=== PATIENT | male | born 1935 | race Caucasian/White ===

== ENCOUNTER 2020-09-22 14:05 | Inpatient (IN) ==
--- NOTE | 2020-09-22 15:23 | Emergency Department Note ---
History of Present Illness General Chief complaint: GI Bleed Stated complaint: GI ASSESSMENT Time Seen by Provider: 09/22/20 15:10 Source: patient Mode of arrival: ambulatory Limitations: no limitations History of Present Illness This patient is sent over from his primary care physician office, Dr. Ley after he has been having rectal bleeding and a decreased hemoglobin. He had rectal bleeding since Saturday and stopped yesterday he does have a history of colon cancer and cancerous polyps but he said no recent surgeries or colonoscop y. His hemoglobin was 13.9 in December and it was 10.7 today so his doctor sent here here for admission. He has chronic kidney disease with a creatinine 1.8. The patient says he feels good at present he has no lightheadedness or dizziness. Denies that he is on Coumadin already blood thinners with exception of aspirin. No chest pain or shortness of breath. He says his energy levels been good. He has no exposure to coronavirus no flu flulike symptoms or fever or cough. He has had diarrhea 1-2 times a month. His last bowel movement was yesterday has had no bowel movement today. No abdominal pain Home Medications Home Medications Medication Instructions Recorded Confirmed Type Lantus Solostar U-100 Insulin 35 unit SUBCUT QAM 04/14/19 09/22/20 History atorvastatin 40 mg PO QAM 04/14/19 09/22/20 History cholecalciferol (vitamin D3) 1,000 unit PO QAM 04/14/19 09/22/20 History [Vitamin D3] fluticasone propionate [Flonase 2 spray INTRANASAL DAILY 04/14/19 09/22/20 History Allergy Relief] lisinopril 30 mg PO QAM 04/14/19 09/22/20 History multivitamin 1 cap PO QAM 04/14/19 09/22/20 History acetaminophen 1,000 mg PO TID PRN 09/22/20 09/22/20 History aspirin [Aspirin Low Dose] 81 mg PO QAM 09/22/20 09/22/20 History diclofenac sodium 2 g TOPICAL BID PRN 09/22/20 09/22/20 History lisinopril 10 mg PO QAM 09/22/20 09/22/20 History metformin 500 mg PO QAM 09/22/20 09/22/20 History Allergies Allergy/AdvReac Type Severity Reaction Status Date / Time No Known Allergies Allergy Verified 09/22/20 17:11 Past Med/Surg History Medical History CKD (chronic kidney disease), stage III Colon cancer S/P BOWEL RESECTION June. Diabetes mellitus, type 2 Hyperlipidemia Hypertension Surgical History H/O umbilical hernia repair History of bowel resection JUNE 05 2018 History of cataract extraction with lens replacement B/L History of colonoscopy History of herniorrhaphy UMBILICAL HERNIA Family History (Updated 09/22/20 @ 17:13 by Suzie Portillo PA-C) Other Heart disease Social History Smoking Status: Former smoker Cigarettes Per Day: 0; Smoking End Date: 2015; Second Hand Exposure: No; Hx Alcohol Use: No Hx Substance Use: No Preferred Language: Nicaraguan Communication Ability: Effective Dehydrogenation Operator Required: No Beliefs That Will Affect Care: None Current Living Situation: Spouse Feels Safe at Home: Yes Assistive Devices: Glasses Review of Systems A total of 10 systems reviewed and were otherwise negative Physical Exam Vital Signs Vital Signs - 24 hr 09/22/20 14:09 09/22/20 15:18 Temperature 36.9 C Temperature Source Oral Pulse Rate 103 H Respiratory Rate 18 Respiratory Effort / Characteristics Non-Labored Respiratory Depth Normal Blood Pressure 120/61 Blood Pressure Mean 80 Pulse Oximetry 96 97 Oxygen Delivery Method Room Air Room Air Sepsis Recent Fever Within 48 Hours No Sepsis New/Unexplained Change in Mental Status No Sepsis Action Taken by Nursing No Action Required General: Well developed well nourished older male who appears in no acute distress, breathing comfortably on room air. Normal speech HEENT: Normal cephalic atraumatic. Pupils are equal round and reactive to light. Extraocular movements are intact. Oropharynx is pink with moist mucous membranes. No swelling of the mouth lips or tongue. Neck: Supple with a midline trachea. No meningeal signs or stiffness, no JVD or bruits. No Stridor. Chest: Clear to auscultation bilaterally. No wheezes or rhonchi. No increased work of breathing. Heart: Regular rate and rhythm without murmurs or gallops. Abdomen: Soft nontender, nondistended without rebound guarding or rigidity. Extremities: No cyanosis clubbing or edema. No calf tenderness or assymetry Spine/Back. Non tender to palpation. No CVA tenderness Skin: Good turgor without rashes. Neurologic exam: Cranial nerves two through 12 are intact. Motor and sensation are intact and symmetrical throughout. Medical Decision Making Differential Diagnosis GI bleed, anemia, cardiac disease, electrolyte or metabolic abnormality, fever chills Medical Records Attestation: I reviewed the patient's medical records. Home Medications Current Medication List: was personally reviewed by me Laboratory Data Attestation: I reviewed the patient's lab results. Result diagrams: 09/22/20 15:29 09/22/20 15:29 Lab Results 09/22/20 09/22/20 09/22/20 Range/Units 15:29 15: 15:29 WBC 9.25 (4.8-10.8) K/uL RBC 3.28 L (4.7-6.1) M/uL Hgb 10.7 L (14.0-18.0) g/dL Hct 32.0 L (42-52) % MCV 97.6 (80-100) fL MCH 32.6 (25-34) pg MCHC 33.4 (32-36) g/dL RDW Std Deviation 47.1 H (36.4-46.3) fL RDW Coeff of Scott 13.2 (11.5-14.5) % Plt Count 215 (130-400) K/uL MPV 11.3 H (7.4-10.4) fL Immature Gran % (Auto) 0.2 % Neut % (Auto) 69.0 % Lymph % (Auto) 18.7 % [place] % (Auto) 9.9 % Eos % (Auto) 1.9 % Baso % (Auto) 0.3 % Neut # (Auto) 6.37 (1.4-6.5) K/uL Lymph # (Auto) 1.73 (1.2-3.4) K/uL [place] # (Auto) 0.92 H (0.11-0.59) K/uL Eos # (Auto) 0.18 (0-0.5) K/uL Baso # (Auto) 0.03 (0-0.2) K/uL Immature Gran # (Auto) 0.02 (0.00-0.02) K/uL PT 11.4 (9.0-12.0) Seconds INR 1.1 (0.9-1.1) APTT 22.9 (21.0-31.0) Seconds PTT Ratio 0.8 Sodium (136-145) mmol/L Potassium (3.5-5.1) mmol/L Chloride (98-107) mmol/L Carbon Dioxide (21-32) mmol/L Anion Gap (3-11) BUN (7-18) mg/dl Creatinine (0.6-1.4) mg/dl Est Cr Clr Drug Dosing ml/min Est GFR ( Amer) Est GFR (Non-Af Amer) BUN/Creatinine Ratio (10-20) Glucose (70-99) mg/dl Calcium (8.5-10.1) mg/dl Total Bilirubin (0.2-1) mg/dl AST (15-37) U/L ALT (12-78) U/L Alkaline Phosphatase (45-117) U/L Total Protein (6.4-8.2) gm/dl Albumin (3.4-5.0) gm/dl Globulin (2.5-4.0) gm/dl Albumin/Globulin Ratio (0.9-2) Blood Type O Positive Antibody Screen NEGATIVE 09/22/20 Range/Units 15:29 WBC (4.8-10.8) K/uL RBC (4.7-6.1) M/uL Hgb (14.0-18.0) g/dL Hct (42-52) % MCV (80-100) fL MCH (25-34) pg MCHC (32-36) g/dL RDW Std Deviation (36.4-46.3) fL RDW Coeff of Scott (11.5-14.5) % Plt Count (130-400) K/uL MPV (7.4-10.4) fL Immature Gran % (Auto) % Neut % (Auto) % Lymph % (Auto) % [place] % (Auto) % Eos % (Auto) % Baso % (Auto) % Neut # (Auto) (1.4-6.5) K/uL Lymph # (Auto) (1.2-3.4) K/uL [place] # (Auto) (0.11-0.59) K/uL Eos # (Auto) (0-0.5) K/uL Baso # (Auto) (0-0.2) K/uL Immature Gran # (Auto) (0.00-0.02) K/uL PT (9.0-12.0) Seconds INR (0.9-1.1) APTT (21.0-31.0) Seconds PTT Ratio Sodium 142 (136-145) mmol/L Potassium 5.5 H (3.5-5.1) mmol/L Chloride 117 H (98-107) mmol/L Carbon Dioxide 21 (21-32) mmol/L Anion Gap 4.0 (3-11) BUN 44 H (7-18) mg/dl Creatinine 1.75 H (0.6-1.4) mg/dl Est Cr Clr Drug Dosing 34.0 ml/min Est GFR ( Amer) 40.5 Est GFR (Non-Af Amer) 35.0 BUN/Creatinine Ratio 25.0 H (10-20) Glucose 85 (70-99) mg/dl Calcium 9.5 (8.5-10.1) mg/dl Total Bilirubin 0.6 (0.2-1) mg/dl AST 14 L (15-37) U/L ALT 24 (12-78) U/L Alkaline Phosphatase 86 (45-117) U/L Total Protein 7.1 (6.4-8.2) gm/dl Albumin 3.9 (3.4-5.0) gm/dl Globulin 3.2 (2.5-4.0) gm/dl Albumin/Globulin Ratio 1.2 (0.9-2) Blood Type Antibody Screen ECG Data Attestation: I personally reviewed and interpreted this ECG as follows: Indication: + weakness Rate (beats per minute): 84 Rhythm: + normal sinus ECG Intervals/blocks: + Incomplete right bundle branch block ECG [place]: + Normal ECG ST segments: + Normal ST segments ECG Findings: no PACs and no PVCs Comparison ECG Date: from (05/29/18) Change: no significant change MDM Narrative This patient comes in as described above. He was placed in room B 10. He has had GI bleed symptoms and was sent over from his doctor's office after his hemoglobin had dropped over 3 g since December. He looks well he is mildly tachycardic in triage but is stable vital signs otherwise. IV access established she was typed and screened and multiple blood testing was obtained. His hemoglobin here is 10.7. He has no white count or fever to suggest infection. He does have some renal insufficiency with a creatinine 1.75 which I think is about baseline. EKG shows no ischemic changes or ectopy. Is incomplete right bundle branch block. He has been typed and screened. [facility] and [facility] evaluation. Impression & Plan Acute GI bleeding, Anemia, Chronic renal insufficiency Discharge Plan Visit Data Chief Complaint: GI Bleed Stated Complaint: GI ASSESSMENT ED Provider: Sean Buckley Discharge Problem: Acute GI bleeding, Anemia, Chronic renal insufficiency Forms Stand Alone Forms: My [facility] Prescriptions Prescriptions: No Action atorvastatin 40 mg Tablet 40 mg PO QAM RF: 0 lisinopril 30 mg Tablet 30 mg PO QAM RF: 0 multivitamin Capsule 1 cap PO QAM RF: 0 fluticasone propionate [Flonase Allergy Relief] 50 mcg/actuation [place],Suspension 2 spray INTRANASAL DAILY RF: 0 cholecalciferol (vitamin D3) [Vitamin D3] 1,000 unit Capsule 1,000 unit PO QAM RF: 0 Lantus Solostar U-100 Insulin 100 unit/mL (3 mL) Insulin Pen 35 unit SUBCUT QAM RF: 0 aspirin [Aspirin Low Dose] 81 mg Tablet,Delayed Release (Dr/Ec) 81 mg PO QAM RF: 0 acetaminophen 500 mg Tablet 1,000 mg PO TID PRN (Reason: Pain) RF: 0 lisinopril 10 mg tablet 10 mg PO QAM RF: 0 metformin 500 mg tablet extended release 24 hr 500 mg PO QAM RF: 0 diclofenac sodium 1 % gel 2 g TOPICAL BID PRN (Reason: Knee Pain) RF: 0
[2020-09-22 15:43] LABS: Basophils # (auto) 0.03 K/uL (0-0.2); Basophils % (auto) 0.3 %; Eosinophils # (auto) 0.18 K/uL (0-0.5); Eosinophils % (auto) 1.9 %; Hemoglobin 10.7 g/dL (14.0-18.0); Immature Granulocytes # (auto) 0.02 K/uL (0.00-0.02); Immature Granulocytes % (auto) 0.2 %; Lymphocytes # (auto) 1.73 K/uL (1.2-3.4); Lymphocytes % (auto) 18.7 %; Mean Corpuscular Hemoglobin 32.6 pg (25-34); Mean Corpuscular Hgb Conc 33.4 g/dL (32-36); Mean Corpuscular Volume 97.6 fL (80-100); Mean Platelet Volume 11.3 fL (7.4-10.4); Monocytes # (auto) 0.92 K/uL (0.11-0.59); Monocytes % (auto) 9.9 %; Neutrophils # (auto) 6.37 K/uL (1.4-6.5); Platelet Count 215 K/uL (130-400); RDW Coefficient of Variation 13.2 % (11.5-14.5); RDW Standard Deviation 47.1 fL (36.4-46.3); Red Blood Count 3.28 M/uL (4.7-6.1); White Blood Count 9.25 K/uL (4.8-10.8)
[2020-09-22 15:59] LABS: INR 1.1 (0.9-1.1); Partial Thromboplastin Ratio 0.8; Partial Thromboplastin Time 22.9 Seconds (21.0-31.0); Prothrombin Time 11.4 Seconds (9.0-12.0)
[2020-09-22 16:05] LABS: Albumin Level 3.9 gm/dl (3.4-5.0); Calcium 9.5 mg/dl (8.5-10.1); Est GFR (African American) 40.5; Potassium 5.5 mmol/L (3.5-5.1)
[2020-09-22 16:08] LABS: Albumin Globulin Ratio 1.2 (0.9-2); Bilirubin,Total 0.6 mg/dl (0.2-1); Globulin 3.2 gm/dl (2.5-4.0); Total Protein 7.1 gm/dl (6.4-8.2)
--- NOTE | 2020-09-22 16:15 | History & Physical Report ---
Date of Service September 22, 2020 Assessment & Plan (1) Acute GI bleeding: This is an 85yo M with PMH of colon cancer s/p resection in 2018, DM II, CKD III, HTN, HLD and other medical problems listed below who presents with bloody bowel movements x 3 days. -Reporting 3 days of dark, black stool in setting of daily aspirin use. Also with history of colon ca s/p hemicolectomy in 2018, due for colonoscopy in November 2020 -Hgb of 10.7 today (down from 13.9 in Dec 2019). No leukocytosis, Hct of 32, BUN of 44, Creatinine of 1.75 -? Upper vs lower bleed due to melanotic color and aspirin use but also with h/o colon cancer -Hold aspirin, clear liquids for now and NPO at midnight , PPI bolus and drip, type and screened, repeat H&H @ 2099 -Routine GI consult. Will discuss with restoration ecologist GI provider in case need for colonoscopy prep (2) Acute kidney injury superimposed on chronic kidney disease: Creatinine elevated at 1.75 (baseline ~1.3-1.4) in setting of GI bleed. Also had lisinopril dose increased from 10 to 40mg daily at beginning of month -Hold lisinopril for now, gentle fluids. Repeat BMP in AM (3) Hyperkalemia: K of 5.5 in setting of increased lisinopril dose. Hold for now and repeat BMP in AM (4) Colon cancer: S/p hemicolectomy in 2017. Due for repeat colonoscopy in Nov 2020 (5) HTN (hypertension): Holding lisinopril. Add additional agents if needed (6) Diabetes mellitus, type II: A1c of 7.3 in December. Repeat a1c in AM -Hold home agents -Basal bolus insulin per protocol while inpatient -BSG AC HS (7) HLD (hyperlipidemia): Continue statin DVT Ppx: SCDs Code status: FULL PCP: Av Dispo: Admitted to [facility]. Plan to return home once medically stable. Patient seen in collaboration with Dr. Peralta. Please see addendum. History of Present Illness Chief Complaint: rectal bleeding Primary Care Provider: Vimal Ley MD This is an 85yo M with PMH of colon cancer s/p resection in 2018, DM II, CKD III, HTN, HLD and other medical problems listed below who presents with bloody bowel movements x 3 days. Had dark, almost black bowel movements from Saturday- Saturday, a normal colored bowel movement yesterday without any blood and no bowel movement today. Also noticed blood on shorts [facility]. Was seen in clinic by Dr. Ley and lab work revealed a 3 g drop in hemoglobin from 13.9 in December 2019 to 10.7 today. Denies any lightheadedness, visual changes, presyncope, chest pain, palpitations or shortness of breath. No nausea, vomiting or abdominal pain. Denies any fever, chills or cough. Does take a baby aspirin daily. Has history of colon cancer with right colon resection in 2018. Last colonoscopy was in April 2019 which showed end-to-side ileo-colonic anastomosis, characterized by healthy appearing mucosa, diverticulosis of the sigmoid colon and one 35 mm polyp in the rectum, removed with mucosal resection, one 15 mm polyp in the rectum, removed with a hot snare and non-bleeding internal hemorrhoids. Due for next colonoscopy in Nov 2020. Allergies Allergy/AdvReac Type Severity Reaction Status Date / Time No Known Allergies Allergy Verified 09/22/20 17:11 Home Medications Home Medications Medication Instructions Recorded Confirmed Type Lantus Solostar U-100 Insulin 35 unit SUBCUT QAM 04/14/19 09/22/20 History atorvastatin 40 mg PO QAM 04/14/19 09/22/20 History cholecalciferol (vitamin D3) 1,000 unit PO QAM 04/14/19 09/22/20 History [Vitamin D3] fluticasone propionate [Flonase 2 spray INTRANASAL DAILY 04/14/19 09/22/20 History Allergy Relief] lisinopril 30 mg PO QAM 04/14/19 09/22/20 History multivitamin 1 cap PO QAM 04/14/19 09/22/20 History acetaminophen 1,000 mg PO TID PRN 09/22/20 09/22/20 History aspirin [Aspirin Low Dose] 81 mg PO QAM 09/22/20 09/22/20 History diclofenac sodium 2 g TOPICAL BID PRN 09/22/20 09/22/20 History lisinopril 10 mg PO QAM 09/22/20 09/22/20 History metformin 500 mg PO QAM 09/22/20 09/22/20 History Past Med/Surg History Medical History CKD (chronic kidney disease), stage III Colon cancer S/P BOWEL RESECTION June. Diabetes mellitus, type 2 Hyperlipidemia Hypertension Surgical History H/O umbilical hernia repair History of bowel resection JUNE 05 2018 History of cataract extraction with lens replacement B/L History of colonoscopy History of herniorrhaphy UMBILICAL HERNIA Family History (Updated 09/22/20 @ 17:13 by Suzie Portillo PA-C) Other Heart disease Social History Smoking Status: Former smoker Cigarettes Per Day: 0; Smoking End Date: 2015; Second Hand Exposure: No; Hx Alcohol Use: No Hx Substance Use: No Preferred Language: Turkish Communication Ability: Effective Brand Specialist Required: No Beliefs That Will Affect Care: None Current Living Situation: Spouse Feels Safe at Home: Yes Assistive Devices: Glasses Review of Systems Review of Systems: At least ten systems reviewed and negative except as noted in the HPI. Physical Exam Physical Exam: General Appearance: WD/WN, vitals as above, NAD, sitting up in bed, pleasant, conversing easily Head: normocephalic, atraumatic Eyes: normal inspection, PERRL, conjunctivae normal, anicteric sclerae ENT: external ear and nose normal, oropharynx normal Neck: normal visual inspection, trachea midline, no thyromegaly Respiratory: normal respiratory effort, lungs clear to auscultation, no wheeze, rales, rhonchi. No accessory muscle use Cardiovascular: tachycardic, regular rhythm, no murmur appreciated, normal per ipheral pulses, no BLE edema. Vessels: no JVD Chest: normal inspection of chest Abdomen/GI: normal bowel sounds, soft, nontender, no hepatosplenomegaly Extremities/Musculoskeletal: no cyanosis or clubbing, extremities motor strength 5/5 Neurologic: PERRL, EOMI, accommodation nl, no face palsy, no dysarthria, CN's II-XI intact bilaterally and moves all extremities Psychiatric: A+Ox3, euthymic affect Skin: no rashes, normal color, warm/dry. Quarter-size cyst on midback, nontender Results & Data Results & Data ([facility]) Vital Signs (Past 12 Hours) Vital Signs Temp Pulse Resp BP Pulse Ox 09/22/20 14:09 36.9 C 103 H 18 120/61 96 Laboratory Results Short CBC 09/22/20 Range/Units 15:29 WBC 9.25 (4.8-10.8) K/uL Hgb 10.7 L (14.0-18.0) g/dL Hct 32.0 L (42-52) % Plt Count 215 (130-400) K/uL BMP 09/22/20 15:29 Sodium 142 Potassium 5.5 H Chloride 117 H Carbon Dioxide 21 BUN 44 H Creatinine 1.75 H Glucose 85 Calcium 9.5 Liver Function 09/22/20 Range/Units 15:29 Total Bilirubin 0.6 (0.2-1) mg/dl AST 14 L (15-37) U/L ALT 24 (12-78) U/L Alkaline Phosphatase 86 (45-117) U/L Albumin 3.9 (3.4-5.0) gm/dl ECG Additional Comments: Normal sinus rhythm Incomplete right bundle branch block Supervising Physician Co-Signing Physician Notes Attending Addendum: care coordinated with MOHSEN Portillo please refer to her notes for full details, I agree with her notes patient seen and examined, records reviewed by myself as well on exam, patient seen sitting up in bed, comfortable, not in distress States he feels fine overall No recurrence of GI bleed while admitted No Abdominal pain, nausea vomiting, fevers or chills no other symptoms VS noted and reviewed oriented x 3, not in distress, speaks in sentences with no effort nor accessory muscle use normal rate, regular rhythm, no murmurs clear breath sounds bilaterally non distended, soft, nontender no bipedal edema, erythema, warmth no neuro deficits WBC 9.2 Hg 10.7 Crea 1.7 ASSESSMENT AND PLAN MELENA, HEMATOCHEZIA UPPER VERSUS LOWER GI BLEED HISTORY OF COLON CANCER, DIVERTICULOSIS, INTERNAL HEMORRHOIDS --Hemoglobin 10 from 13 since December 2019 --Discussed with Dr. Haque Recommend colonoscopy tomorrow, start prep tonight --N.p.o. after midnight, gentle IV fluids --Protonix drip ACUTE KIDNEY INJURY HYPERKALEMIA --IV NSS Repeat BMP in a.m. other diagnoses and plan of care as per MOHSEN Portillo's notes Oseas Peralta MD
[2020-09-22] MEDS ORDERED: PANTOPRAZOLE BOLUS/DRIP 1 EA IV STA (16:58)
[2020-09-22] MEDS ORDERED: PANTOprazole 80 MG in DEXTROSE 5% 100 ML IV ONE (17:15)
[2020-09-22] MEDS ORDERED: PANTOprazole 40 MG in DEXTROSE 5% 100 ML IV SCH (17:30)
[2020-09-22] MEDS ORDERED: DEXTROSE 50% 50 ML SYRINGE IV PRN (18:52)
[2020-09-22] MEDS ORDERED: GLUCAGON FOR INJ 1 MG VIAL SQ PRN (18:52)
[2020-09-22] MEDS ORDERED: CARBOHYDRATES FOR HYPOGLYCEMIA PO PRN (18:52)
[2020-09-22] MEDS ORDERED: ACETAMINOPHEN 325 MG TAB PO PRN (18:52)
[2020-09-22] MEDS ORDERED: ONDANSETRON INJ 2 MG/ML 2 ML VIAL IV PRN (18:52)
[2020-09-22] MEDS ORDERED: ACETAMINOPHEN 500 MG TAB PO PRN (18:52)
[2020-09-22] MEDS ORDERED: GLUCOSE 10 TABS/TUBE PO PRN (18:52)
[2020-09-22] MEDS ORDERED: GLUCOSE 40% GEL 15 GM TUBE PO PRN (18:52)
[2020-09-22] MEDS: SODIUM CHLORIDE 0.9% 1000ML 1,000 ML IV SCH (20:30)
[2020-09-22] MEDS: POLYETHYLENE (MIRALAX) 17 GM PACK PO SCH (20:30)
[2020-09-22] MEDS: INSULIN ASPART 100 UNITS/ML 3 ML PEN SC SCH (20:46)
[2020-09-22 21:39] LABS: Hematocrit (blood only) 32.2 % (42-52); Hemoglobin 10.5 g/dL (14.0-18.0)
[2020-09-22] MEDS: PANTOprazole 40 MG in DEXTROSE 5% 100 ML IV SCH (22:54)
[2020-09-23] MEDS: POLYETHYLENE (MIRALAX) 17 GM PACK PO SCH (00:38)
[2020-09-23] MEDS: PANTOprazole 40 MG in DEXTROSE 5% 100 ML IV SCH ×3 (04:17→19:34)
[2020-09-23 06:47] LABS: Hematocrit (blood only) 32.1 % (42-52); Hemoglobin 10.6 g/dL (14.0-18.0); Mean Corpuscular Hemoglobin 32.6 pg (25-34); Mean Corpuscular Volume 98.8 fL (80-100); Mean Platelet Volume 11.3 fL (7.4-10.4); Platelet Count 206 K/uL (130-400); RDW Coefficient of Variation 13.2 % (11.5-14.5); RDW Standard Deviation 47.8 fL (36.4-46.3); Red Blood Count 3.25 M/uL (4.7-6.1); White Blood Count 7.66 K/uL (4.8-10.8)
[2020-09-23 07:21] LABS: BUN Creatinine Ratio 22.7 (10-20); Creatinine Clr Calc Pharmacy 37.2 ml/min; Est GFR (African American) 49.6; Est GFR (Non-African American) 42.8; Potassium 5.1 mmol/L (3.5-5.1)
[2020-09-23 07:46] LABS: Estimated Average Glucose 148 mg/dl; Hemoglobin A1C 6.8 % (4.5-5.6)
--- NOTE | 2020-09-23 07:59 | Electrocardiogram Report ---
Test Reason : Blood Pressure : / mmHG Vent. Rate : 084 BPM Atrial Rate : 084 BPM P-R Int : 192 ms QRS Dur : 106 ms QT Int : 354 ms P-R-T Axes : 000 039 030 degrees QTc Int : 418 ms Normal sinus rhythm Incomplete right bundle branch block Borderline ECG When compared with ECG of 29-MAY-2018 06:07, No significant change was found Confirmed by Garret Petersen ([id number]) on 09/23/2020 7:58:48 AM Referred By: Vimal Ley Confirmed By:Garret Petersen
[2020-09-23] MEDS: MULTIVITAMIN TAB PO SCH (08:18)
[2020-09-23] MEDS: FLUTICASONE PROPIONATE NA SPR 16 GM BTL NAE SCH (08:18)
[2020-09-23] MEDS: ATORVASTATIN 40 MG TAB PO SCH (08:18)
--- NOTE | 2020-09-23 09:12 | Gastrointestinal Consultation ---
Date of Consultation September 23, 2020 Assessment & Plan (1) Acute GI bleeding: Mr. Irvin experienced melena with some bright red rectal bleeding, occurring from last Sat to Saturday, w/o any bleeding since that time. His Hb dropped 3 pts since the most recent prior in March 2020 and he experienced slight worsening of his renal function. He carries a hx of colon cancer and diverticulosis. Differentials considered include upper GI bleeding from ulcer disease or AVMs, lower GI bleeding from diverticulosis, colon cancer or ischemic colitis. Plan: 1. EGD and colonoscopy today by Dr. Stratton. 2. Because no current GI bleeding, no need for a PPI drip. 3. Please continue to keep pt NPO. 4. Further recommendations to follow endoscopy. Supervising Physician Co-Signing Physician Notes I saw and evaluated the patient, we are planning for upper endoscopy and colonoscopy today due to a question of melena and hematochezia. Physical examination No obvious distress, mild pallor of the skin No abdominal tenderness noted Impression: Patient presents with a history of hematochezia and melena with a mild reduction in his hemoglobin and hematocrit. Upper endoscopy and colonoscopy planned for today for further evaluation. We have discussed the risks to include bleeding, infection, perforation, pain and need for follow-up studies. History of Present Illness Reason for Consultation: Rectal Bleeding Requesting Physician: Dr. Peralta Attending Physician: Carmen Orozco MD History of Present Illness Mr. Gopi Irvin if an 85 yr old male pt of Dr. Ley with a hx of colon cancer (resection 2018) DM II, CKD III, HTN, HLD. His most recent colonoscopy was in April 2019 with one 35mm polyp, [id number] polyp (Path with tubular adenoma) and diverticulosis. A one yr f/u colonoscopy was recommended but held due to COVID. He experienced rectal bleeding, mostly black, with some bright red on the toilet paper beginning on Saturday, persisting through Saturday. Since then, he has had soft, brown BMs. He denies any abd pain, nausea, vomiting, CP, SOB, dizziness, weakness or other issues. He saw his PCP yesterday. Labs showed mild worsening of renal function and a drop in Hb from 13 in March 2020 to 10. He is on ASA 81mg/day, no other antiplatelet or anticoagulant meds. He was directed to the [facility] ED. On arrival at [facility], Hb 10.6, Hct 32, Platelets 206, BUN 34, Cr 1.48. He was pr epped for colonoscopy, and has been NPO since midnight. Most recent BM this morning was liquid, green.He is hemodynamically stable, awake, alert, oriented and comfortable. He agrees to undergo endoscopy and does not have any questions. Allergies Allergy/AdvReac Type Severity Reaction Status Date / Time No Known Allergies Allergy Verified 09/22/20 17:11 Home Medications Home Medications Medication Instructions Recorded Confirmed Type Lantus Solostar U-100 Insulin 35 unit SUBCUT QAM 04/14/19 09/22/20 History atorvastatin 40 mg PO QAM 04/14/19 09/22/20 History cholecalciferol (vitamin D3) 1,000 unit PO QAM 04/14/19 09/22/20 History [Vitamin D3] fluticasone propionate [Flonase 2 spray INTRANASAL DAILY 04/14/19 09/22/20 History Allergy Relief] lisinopril 30 mg PO QAM 04/14/19 09/22/20 History multivitamin 1 cap PO QAM 04/14/19 09/22/20 History acetaminophen 1,000 mg PO TID PRN 09/22/20 09/22/20 History aspirin [Aspirin Low Dose] 81 mg PO QAM 09/22/20 09/22/20 History diclofenac sodium 2 g TOPICAL BID PRN 09/22/20 09/22/20 History lisinopril 10 mg PO QAM 09/22/20 09/22/20 History metformin 500 mg PO QAM 09/22/20 09/22/20 History Patient History Medical History CKD (chronic kidney disease), stage III Colon cancer S/P BOWEL RESECTION June. Diabetes mellitus, type 2 Hyperlipidemia Hypertension Surgical History H/O umbilical hernia repair History of bowel resection JUNE 05 2018 History of cataract extraction with lens replacement B/L History of colonoscopy History of herniorrhaphy UMBILICAL HERNIA Family History Other Heart disease Social History Smoking Status: Former smoker Cigarettes Per Day: 0; Smoking End Date: 2015; Second Hand Exposure: No; Hx Alcohol Use: No Hx Substance Use: No Preferred Language: Frisian Communication Ability: Effective Track Inspector Required: No Beliefs That Will Affect Care: None Current Living Situation: Spouse Feels Safe at Home: Yes Assistive Devices: None Review of Systems Review of Systems: ROS: Gen: Denies weakness, fevers, weight loss Eyes: No eye redness, or pain, no recent vision changes Resp: No SOB, no cough Cardio: No palpitations/irregular beats, no chest pain GI: Per HPI, otherwise (-). : Denies pain on urination Skin: No jaundice, itching or new rashes Physical Exam Constitutional: WD/WN, vitals as above Eyes: PERRL, conjunctivae normal, anicteric sclerae ENMT: external ear and nose normal, oropharynx normal Neck: trachea midline, no thyromegaly Respiratory: normal respiratory effort, lungs clear to auscultation Cardiovascular: RRR, no murmur, no edema Gastrointestinal (Abdomen): normal bowel sounds, soft, nontender, no hepatosplenomegaly Musculoskeletal: no cyanosis or clubbing, extremities motor strength 5/5 Skin: no rashes, warm and dry Neurologic: PERRL, EOMI, accommodation nl, no face palsy, no dysarthria Psychiatric: A+Ox3, euthymic affect Lymphatic: no cervical or axillary lymphadenopathy Results & Data ([facility]) Vital Signs (Past 12 Hours) Vital Signs Temp Pulse Pulse Resp BP Pulse Ox 09/23/20 07:45 36.6 C 84 20 143/83 H 99 09/23/20 04:00 37.0 C 88 18 161/74 H 95 09/23/20 01:27 105 H 09/22/20 23:00 36.7 C 85 17 131/71 96 Laboratory Results WBC 7.6, Hb 10/6, Hct 32, Platelets 73, Na 140, k 5.1, BUN 34, Cr 1.48, glucose 82, INR 1.1.
[2020-09-23] MEDS: SODIUM CHLORIDE 0.9% 1000ML 1,000 ML IV SCH (09:15)
[2020-09-23] MEDS: INSULIN ASPART 100 UNITS/ML 3 ML PEN SC SCH ×4 (09:31→20:15)
[2020-09-23] MEDS: INSULIN GLARGINE SOLOSTAR 100 UNITS/ML 3 ML PEN SC SCH (09:31)
--- NOTE | 2020-09-23 09:57 | Anesthesiology Consultation ---
Date of Service September 23, 2020 Assessment & Plan Chart Review Chart Review: Acceptable Risk for Surgery Consults Requested none ASA ASA3 Proposed Anesthesia Anesthesia Type: MAC Risk / Benefits Reviewed With: PT / POA / Parent / Guardian, Accepts Plan and Informed Consent Obtained Additional Comments: covid pending 09/23/20 labs/chart reviewed History Surgery Operation Date: 09/23/20 16:00 Proposed Procedures p Colonoscopy EGD Dr Viral Stratton, DO Height/Weight Height: 5 ft 9 in Weight: 83.9 kg Allergies Allergy/AdvReac Type Severity Reaction Status Date / Time No Known Allergies Allergy Verified 09/22/20 17:11 Medications Home Medications Medication Instructions Recorded Confirmed Last Taken Lantus Solostar U-100 Insulin 35 unit SUBCUT QAM 04/14/19 09/22/20 09/22/20 atorvastatin 40 mg PO QAM 04/14/19 09/22/20 09/22/20 cholecalciferol (vitamin D3) 1,000 unit PO QAM 04/14/19 09/22/20 09/22/20 [Vitamin D3] fluticasone propionate [Flonase 2 spray INTRANASAL DAILY 04/14/19 09/22/20 09/22/20 Allergy Relief] lisinopril 30 mg PO QAM 04/14/19 09/22/20 09/22/20 multivitamin 1 cap PO QAM 04/14/19 09/22/20 09/22/20 acetaminophen 1,000 mg PO TID PRN 09/22/20 09/22/20 Unknown aspirin [Aspirin Low Dose] 81 mg PO QAM 09/22/20 09/22/20 09/22/20 diclofenac sodium 2 g TOPICAL BID PRN 09/22/20 09/22/20 Unknown lisinopril 10 mg PO QAM 09/22/20 09/22/20 09/22/20 metformin 500 mg PO QAM 09/22/20 09/22/20 09/22/20 Active Medications Generic Name Dose Route Start Last Admin Trade Name Freq PRN Reason Stop Dose Admin Atorvastatin Calcium 40 mg 09/23/20 09:00 09/23/20 08:18 Atorvastatin 40 Mg Tab PO 10/23/20 08:59 40 mg QAM DALILA Administration Fluticasone Propionate 2 sprays 09/23/20 09:00 10/23/20 08:18 Fluticasone Propionate Na Spr 16 Gm Btl REGAN 10/23/20 08:59 2 sprays DAILY DALILA Administration Pantoprazole Sodium 40 mg/ 100 mls @ 20 mls/hr 09/22/20 23:15 09/23/20 09:15 Dextrose IV 10/22/20 23:14 8 mg/hr Q5H DALILA 20 mls/hr Administration 8 MG/HR Sodium Chloride 1,000 mls @ 75 mls/hr 09/22/20 19:30 09/23/20 09:15 Nss 1000ml IV 10/22/20 19:29 75 mls/hr .[id number] DALILA Administration Insulin Aspart 0 units 09/22/20 21:00 09/23/20 09:31 Insulin Aspart 100 Units/Ml 3 Ml Pen SC 10/22/20 20:59 Not Given ACHS DALILA Insulin Glargine 0 - 10 units 09/23/20 09:00 09/23/20 09:31 Insulin Glargine Solostar 100 Units/Ml 3 Ml Pen SC 10/23/20 08:59 Not Given DAILY DALILA Protocol Multivitamins 1 tab 09/23/20 09:00 09/23/20 08:18 Multivitamin Tab PO 10/23/20 08:59 1 tab QAM DALILA Administration NPO Date Last Intake of Fluids: 09/23/20 Time Last Intake of Fluids: 04:30 Date Last Intake of Solids: 09/22/20 Past Medical History Medical History CKD (chronic kidney disease), stage III Colon cancer S/P BOWEL RESECTION June. Diabetes mellitus, type 2 Hyperlipidemia Hypertension Exercise / Class Metabolic Activity II 4-5 Yardwork/Stairs/Walk up hill Past Family History Family History Other Heart disease Past Surgical History Surgical History H/O umbilical hernia repair History of bowel resection JUNE 05 2018 History of cataract extraction with lens replacement B/L History of colonoscopy History of herniorrhaphy UMBILICAL HERNIA Past Anesthesia History No Hx of Anesthesia Complications and No Family Hx of Anesthesia Complications History of PONV No Hx of PONV and No Hx of Motion Sickness Social History Smoking Status: Former smoker Smoking cigarettes per day: 0 Smoking End Date: 2015 Hx Alcohol Use: No Hx Substance Use: No substance use type: does not use Physical Exam Vital Signs Last Vital Signs Temp 36.9 C 09/23/20 11:24 Pulse 82 09/23/20 11:24 Resp 18 09/23/20 11:24 BP 130/78 09/23/20 11:24 Pulse Ox 99 09/23/20 11:24 ENMT Mouth: no TMJ abnormality Thyromental Distance: > or= 3.5 Finger Breadths Mallampati Class: II Neck normal visual inspection and trachea midline; neck extension not limited Respiratory normal respiratory effort Auscultation: lungs clear to auscultation bilaterally Cardiovascular Rate/Rhythm: regular rate and regular rhythm Heart Sounds: no murmur Musculoskeletal Spine: normal cervical ROM Extremities: full ROM of extremities Neurologic moves all extremities Psychiatric Orientation: alert and oriented x 3 Testing Laboratory Results 09/23/20 06:28 09/23/20 06:28 PT 11.4 Seconds (9.0-12.0) 09/22/20 15:29 INR 1.1 (0.9-1.1) 09/22/20 15:29 APTT 22.9 Seconds (21.0-31.0) 09/22/20 15:29 Hemoglobin A1c 6.8 % (4.5-5.6) H 09/23/20 06:28 Blood Type O Positive 09/22/20 15:29 Antibody Screen NEGATIVE 09/22/20 15:29 09/23/20 09/23/20 11:45 07:53 POC Glucose 83 77
--- NOTE | 2020-09-23 14:12 | Electrocardiogram Report ---
Test Reason : Blood Pressure : / mmHG Vent. Rate : 084 BPM Atrial Rate : 084 BPM P-R Int : 204 ms QRS Dur : 110 ms QT Int : 362 ms P-R-T Axes : 268 052 044 degrees QTc Int : 427 ms Unusual P axis, possible ectopic atrial rhythm Incomplete right bundle branch block Abnormal ECG When compared with ECG of 22-SEP-2020 15:49, No significant change (prior tracing appears to have been ectopic atrial rhythm as well) Confirmed by Garret Petersen ([id number]) on 09/23/2020 2:12:20 PM Referred By: Vimal Ley Confirmed By:Garret Petersen
--- NOTE | 2020-09-23 14:39 | Communication Note ---
Date of Service: September 23, 2020 Patient underwent upper endoscopy and colonoscopy today due to a question of melena and hematochezia. Findings Gastritis, biopsied Duodenal polyp, biopsied Internal hemorrhoids Anastomotic ulceration, healing Impression: Patient presented with hematochezia and melena perhaps this is related to the ulceration noticed at his ileocolonic anastomosis. Recommendations Avoid use of nonsteroidals, may use baby aspirin if needed Await pathology results Sitter use of an iron supplement 1 time daily for 6 to 8 weeks Please call with any questions or concerns
--- NOTE | 2020-09-23 14:45 | GI REPORT ---
Patient Name: Gopi Irvin Procedure Date: 09/23/2020 1:29 PM Date of : 1935 Admit Type: Inpatient Age: 85 Gender: Male Attending MD: Roosevelt Stratton DO Procedure: Colonoscopy Providers: Roosevelt Stratton DO Referring MD: CR PINEDO, Lisa Juárez MD, Vimal Ley Indications: Hematochezia Medicines: Monitored Anesthesia Care Complications: No immediate complications. Estimated blood loss: Minimal. Estimated Blood Loss: Estimated blood loss was minimal. Procedure: Pre-Anesthesia Assessment: - Prior to the procedure, a History and Physical was performed, and patient medications, allergies and sensitivities were reviewed. The patient's tolerance of previous anesthesia was reviewed. - The risks and benefits of the procedure and the sedation options and risks were discussed with the patient. All questions were answered and informed consent was obtained. - Patient identification and proposed procedure were verified prior to the procedure by the physician, the nurse and the airline stewardess. The procedure was verified in the procedure room. - Pre-procedure physical examination revealed no contraindications to sedation. - ASA Grade Assessment: III - A patient with severe systemic disease. - After reviewing the risks and benefits, the patient was deemed in satisfactory condition to undergo the procedure. - The anesthesia plan was to use monitored anesthesia care (MAC). - Immediately prior to administration of medications, the patient was re-assessed for adequacy to receive sedatives. - The heart rate, respiratory rate, oxygen saturations, blood pressure, adequacy of pulmonary ventilation, and response to care were monitored throughout the procedure. - The physical status of the patient was re-assessed after the procedure. After I obtained informed consent, the scope was passed under direct vision. Throughout the procedure, the patient's blood pressure, pulse, and oxygen saturations were monitored continuously. The Colonoscope was introduced through the anus and advanced to the ileocolonic anastomosis. The colonoscopy was performed without difficulty. The patient tolerated the procedure well. The quality of the bowel preparation was good. Findings: The digital rectal exam findings include non-thrombosed external hemorrhoids. Pertinent negatives include normal sphincter tone. The robby-terminal ileum appeared normal. There was evidence of a prior end-to-side ileo-colonic anastomosis in the transverse colon. This was patent and was characterized by ulceration and an intact staple line. The anastomosis was traversed. Biopsies were taken with a cold forceps for histology. The pathology specimen was placed into Bottle C. Estimated blood loss was minimal. Internal hemorrhoids were found during retroflexion. The hemorrhoids were moderate. The exam was otherwise without abnormality. Impression: - Non-thrombosed external hemorrhoids found on digital rectal exam. - The examined portion of the ileum was normal. - Patent end-to-side ileo-colonic anastomosis, characterized by ulceration and an intact staple line. Biopsied. - Internal hemorrhoids. - The examination was otherwise normal. Recommendation: - [facility] for [facility] care. - Await pathology results. - Repeat colonoscopy in 1 year for surveillance given patient's prior history. Roosevelt Stratton D.O. Roosevelt Stratton, 09/23/2020 2:44:38 PM This report has been signed electronically. Note Initiated On: 09/23/2020 1:29 PM Number of Addenda: 0 I attest to the content of the Intraoperative Record and orders documented therein, exceptions below {[id number]}
--- NOTE | 2020-09-23 14:51 | GI REPORT ---
Patient Name: Gopi Irvin Procedure Date: 09/23/2020 1:30 PM Date of : 1935 Admit Type: Inpatient Age: 85 Gender: Male Attending MD: Roosevelt Stratton DO Procedure: Upper GI endoscopy Providers: Roosevelt Stratton DO Referring MD: Vimal SAM Indications: Melena Medicines: Monitored Anesthesia Care Complications: No immediate complications. Estimated blood loss: Minimal. Estimated Blood Loss: Estimated blood loss was minimal. Procedure: Pre-Anesthesia Assessment: - Prior to the procedure, a History and Physical was performed, and patient medications, allergies and sensitivities were reviewed. The patient's tolerance of previous anesthesia was reviewed. - The risks and benefits of the procedure and the sedation options and risks were discussed with the patient. All questions were answered and informed consent was obtained. - Patient identification and proposed procedure were verified prior to the procedure by the physician, the nurse and the feller buncher operator. The procedure was verified in the procedure room. - Pre-procedure physical examination revealed no contraindications to sedation. - ASA Grade Assessment: III - A patient with severe systemic disease. - After reviewing the risks and benefits, the patient was deemed in satisfactory condition to undergo the procedure. - The anesthesia plan was to use monitored anesthesia care (MAC). - Immediately prior to administration of medications, the patient was re-assessed for adequacy to receive sedatives. - The heart rate, respiratory rate, oxygen saturations, blood pressure, adequacy of pulmonary ventilation, and response to care were monitored throughout the procedure. - The physical status of the patient was re-assessed after the procedure. After obtaining informed consent, the endoscope was passed under direct vision. Throughout the procedure, the patient's blood pressure, pulse, and oxygen saturations were monitored continuously. The Endoscope was introduced through the mouth, and advanced to the third part of duodenum. The upper GI endoscopy was accomplished without difficulty. The patient tolerated the procedure well. Findings: The examined esophagus was normal. The Z-line was regular and was found 39 cm from the incisors. Diffuse mild inflammation characterized by congestion (edema), erythema and granularity was found in the entire examined stomach. Biopsies were taken with a cold forceps for histology. The pathology specimen was placed into Bottle B. Estimated blood loss was minimal. A single 12 mm semi-sessile polyp with no bleeding was found in the duodenal bulb. The surrounding mucosa was somewhat edematous this could represent an healing ulceration due to the position I was unable to see the base of the lesion well, biopsies were taken with a cold forceps for histology. The pathology specimen was placed into Bottle A. Estimated blood loss was minimal. A large non-bleeding diverticulum was found in the area of the papilla. The second portion of the duodenum and third portion of the duodenum were normal. Impression: - Normal esophagus. - Gastritis. Biopsied. - A single duodenal polyp, this may represent a healing ulceration. Biopsied. - Normal second portion of the duodenum and third portion of the duodenum. Recommendation: - Await pathology results. - Use Prilosec (omeprazole) 40 mg PO daily for 12 weeks. - Repeat upper endoscopy pending pathology results in 12 weeks - Perform a colonoscopy today. Roosevelt Stratton D.O. Roosevelt Stratton, 09/23/2020 2:51:34 PM This report has been signed electronically. Note Initiated On: 09/23/2020 1:30 PM Number of Addenda: 0 I attest to the content of the Intraoperative Record and orders documented therein, exceptions below {[id number]}
--- NOTE | 2020-09-23 15:08 | Anesthesiology Progress Note ---
Date of Service September 23, 2020 Anesthesia Post Procedure Vital Signs Vital Signs: Temp Pulse Pulse Resp BP BP BP 09/23/20 14:57 77 12 133/77 09/23/20 14:42 72 12 121/66 09/23/20 13:02 37.3 C 91 H 20 153/70 H 09/23/20 11:24 36.9 C 82 18 130/78 09/23/20 08:00 79 09/23/20 07:45 36.6 C 84 20 143/83 H 09/23/20 04:00 37.0 C 88 18 161/74 H 09/23/20 01:27 105 H 09/22/20 23:00 36.7 C 85 17 131/71 09/22/20 20:20 79 09/22/20 18:52 36.5 C 18 143/74 H 09/22/20 17:00 79 19 09/22/20 16:30 83 25 H 09/22/20 16:00 84 17 09/22/20 15:45 85 17 09/22/20 15:41 85 21 131/67 09/22/20 15:18 Pulse Ox 09/23/20 14:57 97 09/23/20 14:42 97 09/23/20 13:02 99 09/23/20 11:24 99 09/23/20 08:00 09/23/20 07:45 99 09/23/20 04:00 95 09/23/20 01:27 09/22/20 23:00 96 09/22/20 20:20 09/22/20 18:52 100 09/22/20 17:00 98 09/22/20 16:30 09/22/20 16:00 97 09/22/20 15:45 97 09/22/20 15:41 97 09/22/20 15:18 97 Transfer of Care Handoff Completed per policy Notes Mental Status: alert / awake / arousable Patient Amnestic to Procedure: Yes Nausea / Vomiting: adequately controlled Pain: adequately controlled Airway Patency, RR, SpO2: stable & adequate BP & HR: stable & adequate Hydration State: stable & adequate Anesthetic Complications: no major complications apparent and Pt Satisfied with anesthetic care
--- NOTE | 2020-09-23 18:44 | Hospitalist Progress Note ---
Date of Service September 23, 2020 Assessment & Plan (1) Acute GI bleeding: This is an 85yo M with PMH of colon cancer s/p resection in 2018, DM II, CKD III, HTN, HLD and other medical problems listed below who presents with bloody bowel movements x 3 days. History of colon ca s/p hemicolectomy in 2017, due for colonoscopy in November 2020 Hgb on admission 10.7 Gastro on board S/P EGD showed EGD showed normal esophagus. gastritis. Single duodenal polyps that might represent a healing ulceration. Biopsy collected. Colonoscopy showed nonthrombosed external hemorrhoid. Internal hemorrhoid. patent end-to-side ileocolonic anastomosis, characterized by ulceration and an intact staple line. Biopsy collected Case discussed with GI that recommended to continue PPI 40 mg daily for 12 weeks. Will need to repeat EGD in 12 weeks. Will hold aspirin for 3-5 days, then resume Diet advanced as tolerated Stable from Gastro standpoint (2) Acute kidney injury superimposed on chronic kidney disease: Creatinine elevated at 1.75 on admission (baseline ~1.3-1.4) Mostly due to GI bleed Continue to hold lisinopril Creatinine 1.4 today stable (3) Hyperkalemia: K on admission 5.5 K today 5.1 Continue to hold Lisinopril Continue monitor BMP (4) Colon cancer: S/p hemicolectomy in 2018. Due for repeat colonoscopy in Nov 2020 Colonoscopy done today showed nonthrombosed external hemorrhoid. Internal hemorrhoid. patent end-to-side ileocolonic anastomosis, characterized by ulceration and an intact staple line. Biopsy collected (5) HTN (hypertension): BP has been fluctuated Continue to hold Lisinopril Continue monitor BP (6) Diabetes mellitus, type II: Most recent Hba1c 6.8 Continue to hold metformin Continue Lantus and Novolog sliding scale Continue monitor BS (7) HLD (hyperlipidemia): Continue statin DVT Ppx: SCDs Code status: FULL PCP: Av Dispo: Plan to discharge home tomorrow Admission and Anticipated Discharge Date Admission Date: September 22, 2020 Subjective Pt was seen and examined Lying in bed with no distress Pt said that he feels good He said that no blood was noted today in his tools Denies any chest pain, palpitation, dizziness and SOB Physical Exam Physical Exam: General- No acute distress Head- atraumatic Eyes- PERRL, EOMI, ENT- oropharynx clear Neck- supple, no JVD Lungs- clear to auscultation Heart- regular rhythm; no murmur Abdomen- normal bowel sounds, soft, nontender Extremities- no calf tenderness Neuro- alert, oriented x 3; PERRL, EOMI; no facial palsy; no dysarthria Skin- warm & dry Results & Data Results & Data ([facility]) Vital Signs (Past 12 Hours) Vital Signs Temp Pulse Pulse Resp BP BP Pulse Ox 09/23/20 16:52 36.6 C 80 18 146/90 H 99 09/23/20 15:12 75 18 136/57 L 100 09/23/20 14:57 77 12 133/77 97 09/23/20 14:42 72 12 121/66 97 09/23/20 13:02 37.3 C 91 H 20 153/70 H 99 09/23/20 11:24 36.9 C 82 18 130/78 99 09/23/20 08:00 79 09/23/20 07:45 36.6 C 84 20 143/83 H 99
[2020-09-24 08:16] LABS: Hematocrit (blood only) 33.9 % (42-52); Hemoglobin 11.1 g/dL (14.0-18.0); Mean Corpuscular Hemoglobin 32.5 pg (25-34); Mean Corpuscular Hgb Conc 32.7 g/dL (32-36); Mean Corpuscular Volume 99.1 fL (80-100); Mean Platelet Volume 11.5 fL (7.4-10.4); Platelet Count 201 K/uL (130-400); RDW Coefficient of Variation 13.1 % (11.5-14.5); RDW Standard Deviation 47.4 fL (36.4-46.3); Red Blood Count 3.42 M/uL (4.7-6.1); White Blood Count 7.49 K/uL (4.8-10.8)
[2020-09-24] MEDS: INSULIN ASPART 100 UNITS/ML 3 ML PEN SC SCH (08:34)
[2020-09-24] MEDS: INSULIN GLARGINE SOLOSTAR 100 UNITS/ML 3 ML PEN SC SCH (08:35)
[2020-09-24] MEDS: ATORVASTATIN 40 MG TAB PO SCH (08:36)
[2020-09-24] MEDS: MULTIVITAMIN TAB PO SCH (08:36)
[2020-09-24] MEDS: FLUTICASONE PROPIONATE NA SPR 16 GM BTL NAE SCH (08:36)
[2020-09-24 08:43] LABS: BUN Creatinine Ratio 18.8 (10-20); Calcium 8.9 mg/dl (8.5-10.1); Creatinine Clr Calc Pharmacy 34.2 ml/min; Est GFR (African American) 44.8; Est GFR (Non-African American) 38.7
[2020-09-24] MEDS ORDERED: CHOLECALCIFEROL 1,000 UNITS 25 MCG TAB PO SCH (09:00)
[2020-09-24] MEDS ORDERED: PANTOprazole 40 MG TAB PO SCH (09:00)
--- NOTE | 2020-09-24 11:47 | Hospitalist Progress Note ---
Date of Service September 24, 2020 Assessment & Plan (1) Acute GI bleeding: This is an 85yo M with PMH of colon cancer s/p resection in 2018, DM II, CKD III, HTN, HLD and other medical problems listed below who presents with bloody bowel movements x 3 days. History of colon ca s/p hemicolectomy in 2017, due for colonoscopy in November 2020 Hgb on admission 10.7, slightly increased to 11.1 today Gastro on board S/P EGD showed EGD showed normal esophagus. gastritis. Single duodenal polyps that might represent a healing ulceration. Biopsy collected. Colonoscopy showed nonthrombosed external hemorrhoid. Internal hemorrhoid. patent end-to-side ileocolonic anastomosis, characterized by ulceration and an intact staple line. Biopsy collected Case discussed with GI that recommended to continue PPI 40 mg daily for 12 weeks. Will need to repeat EGD in 12 weeks. Continue hold aspirin for 3-5 days, then resume Diet advanced as tolerated Stable from Gastro standpoint to discharge home (2) Acute kidney injury superimposed on chronic kidney disease: Creatinine elevated at 1.75 on admission (baseline ~1.3-1.4) Mostly due to GI bleed Continue to hold lisinopril Creatinine 1.6 today Pt would like to go home today. Encourage patient to increase fluid intake and hold Lisinopril for now Will check BMP next week (3) Hyperkalemia: K on admission 5.5 K today 5.0 Continue to hold Lisinopril Check BMP next week (4) Colon cancer: S/p hemicolectomy in 2018. Due for repeat colonoscopy in Nov 2020 Colonoscopy done today showed nonthrombosed external hemorrhoid. Internal hemorrhoid. patent end-to-side ileocolonic anastomosis, characterized by ulceration and an intact staple line. Biopsy collected (5) HTN (hypertension): BP stable Continue to hold Lisinopril Continue monitor BP (6) Diabetes mellitus, type II: Most recent Hba1c 6.8 Continue to hold metformin on discharge due to bump in the creatinine Continue Lantus and Novolog sliding scale Continue monitor BS (7) HLD (hyperlipidemia): Continue statin DVT Ppx: SCDs Code status: FULL PCP: Av Dispo: Plan to discharge home today Admission and Anticipated Discharge Date Admission Date: September 22, 2020 Subjective Pt was seen and examined Sitting in bed comfortable and dress nicely to go home Pt said that he feels fine He said that he does not have any symptoms He is very anxious to go home now to go watch the football game Denies any chest pain, palpitation, dizziness and SOB Physical Exam Physical Exam: General- No acute distress Head- atraumatic Eyes- PERRL, EOMI, ENT- oropharynx clear Neck- supple, no JVD Lungs- clear to auscultation Heart- regular rhythm; no murmur Abdomen- normal bowel sounds, soft, nontender Extremities- no calf tenderness Neuro- alert, oriented x 3; PERRL, EOMI; no facial palsy; no dysarthria Skin- warm & dry Results & Data Results & Data ([facility]) Vital Signs (Past 12 Hours) Vital Signs Temp Pulse Resp BP Pulse Ox 09/24/20 08:06 37.0 C 73 18 125/74 96 09/24/20 04:00 36.6 C 70 18 113/62 96
--- NOTE | 2020-09-24 12:37 | Anesthesiology Progress Note ---
Date of Service September 24, 2020 Anesthesia Post Procedure Vital Signs Vital Signs: Temp Pulse Resp BP BP Pulse Ox 09/24/20 12:28 37.0 C 73 18 136/57 L 125/74 96 09/24/20 08:06 37.0 C 73 18 125/74 96 09/24/20 04:00 36.6 C 70 18 113/62 96 09/23/20 23:00 36.3 C L 75 18 134/68 94 09/23/20 19:00 36.6 C 85 18 123/74 96 09/23/20 16:52 36.6 C 80 18 146/90 H 99 09/23/20 15:12 75 18 136/57 L 100 09/23/20 14:57 77 12 133/77 97 09/23/20 14:42 72 12 121/66 97 09/23/20 13:02 37.3 C 91 H 20 153/70 H 99 Transfer of Care Handoff Completed per policy Notes Mental Status: alert / awake / arousable and participated in evaluation Patient Amnestic to Procedure: Yes Nausea / Vomiting: adequately controlled Pain: adequately controlled Airway Patency, RR, SpO2: stable & adequate BP & HR: stable & adequate Hydration State: stable & adequate Anesthetic Complications: no major complications apparent and Pt Satisfied with anesthetic care
--- NOTE | 2020-09-26 09:25 | Discharge Summary ---
Date of Service September 24, 2020 Admission HPI Per Admitting Provider This is an 85yo M with PMH of colon cancer s/p resection in 2018, DM II, CKD III, HTN, HLD and other medical problems listed below who presents with bloody bowel movements x 3 days. Had dark, almost black bowel movements from Saturday- Saturday, a normal colored bowel movement yesterday without any blood and no bowel movement today. Also noticed blood on shorts after riding stationary bike on [facility]. Was seen in clinic by Dr. Ley and lab work revealed a 3 g drop in hemoglobin from 13.9 in December 2019 to 10.7 today. Denies any lightheadedness, visual changes, presyncope, chest pain, palpitations or shortness of breath. No nausea, vomiting or abdominal pain. Denies any fever, chills or cough. Does take a baby aspirin daily. Has history of colon cancer with right colon resection in 2018. Last colonoscopy was in April 2019 which showed end-to-side ileo-colonic anastomosis, characterized by healthy appearing mucosa, diverticulosis of the sigmoid colon and one 35 mm polyp in the rectum, removed with mucosal resection, one 15 mm polyp in the rectum, removed with a hot snare and non-bleeding internal hemorrhoids. Due for next colonoscopy in Nov 2020. Admission Exam Per Admitting Provider General Appearance: WD/WN, vitals as above, NAD, sitting up in bed, pleasant, conversing easily Head: normocephalic, atraumatic Eyes: normal inspection, PERRL, conjunctivae normal, anicteric sclerae ENT: external ear and nose normal, oropharynx normal Neck: normal visual inspection, trachea midline, no thyromegaly Respiratory: normal respiratory effort, lungs clear to auscultation, no wheeze, rales, rhonchi. No accessory muscle use Cardiovascular: tachycardic, regular rhythm, no murmur appreciated, normal peripheral pulses, no BLE edema. Vessels: no JVD Chest: normal inspection of chest Abdomen/GI: normal bowel sounds, soft, nontender, no hepatosplenomegaly Extremities/Musculoskeletal: no cyanosis or clubbing, extremities motor strength 5/5 Neurologic: PERRL, EOMI, accommodation nl, no face palsy, no dysarthria, CN's II-XI intact bilaterally and moves all extremities Psychiatric: A+Ox3, euthymic affect Skin: no rashes, normal color, warm/dry. Quarter-size cyst on midback, nontender Principal Diagnosis GI bleeding Acute kidney injury superimposed on chronic kidney disease: Hyperkalemia: Colon cancer: HTN (hypertension): Diabetes mellitus, type II: Discharge Exam General- No acute distress Head- atraumatic Eyes- PERRL, EOMI, ENT- oropharynx clear Neck- supple, no JVD Lungs- clear to auscultation Heart- regular rhythm; no murmur Abdomen- normal bowel sounds, soft, nontender Extremities- no calf tenderness Neuro- alert, oriented x 3; PERRL, EOMI; no facial palsy; no dysarthria Skin- warm & dry Discharge Data Allergies Allergy/AdvReac Type Severity Reaction Status Date / Time No Known Allergies Allergy Verified 09/22/20 17:11 Consultations 09/22/20 15:54 ED Decision to Admit Stat 09/22/20 18:52 Consult Case Management - Discharge Planning Routine Consult Gastroenterology Routine Procedures Performed Operation Date: 09/23/20 16:00 Actual Procedures p EGD Biopsy Cytology - Roosevelt Stratton DO s Colonoscopy Biopsy Cytology - Roosevelt Stratton DO Hospital Course (1) Acute GI bleeding: This is an 85yo M with PMH of colon cancer s/p resection in 2018, DM II, CKD III, HTN, HLD and other medical problems listed below who presents with bloody bowel movements x 3 days. History of colon ca s/p hemicolectomy in 2017, due for colonoscopy in November 2020 Hgb on admission 10.7, slightly increased to 11.1 today Gastro on board S/P EGD showed EGD showed normal esophagus. gastritis. Single duodenal polyps that might represent a healing ulceration. Biopsy collected. Colonoscopy showed nonthrombosed external hemorrhoid. Internal hemorrhoid. patent end-to-side ileocolonic anastomosis, characterized by ulceration and an intact staple line. Biopsy collected Case discussed with GI that recommended to continue PPI 40 mg daily for 12 weeks. Will need to repeat EGD in 12 weeks. Continue hold aspirin for 3-5 days, then resume Diet advanced as tolerated Stable from Gastro standpoint to discharge home (2) Acute kidney injury superimposed on chronic kidney disease: Creatinine elevated at 1.75 on admission (baseline ~1.3-1.4) Mostly due to GI bleed Continue to hold lisinopril Creatinine 1.6 today Pt would like to go home today. Encourage patient to increase fluid intake and hold Lisinopril for now Will check BMP next week (3) Hyperkalemia: K on admission 5.5 K today 5.0 Continue to hold Lisinopril Check BMP next week (4) Colon cancer: S/p hemicolectomy in 2018. Due for repeat colonoscopy in Nov 2020 Colonoscopy done today showed nonthrombosed external hemorrhoid. Internal hemorrhoid. patent end-to-side ileocolonic anastomosis, characterized by ulceration and an intact staple line. Biopsy collected (5) HTN (hypertension): BP stable Continue to hold Lisinopril Continue monitor BP (6) Diabetes mellitus, type II: Most recent Hba1c 6.8 Continue to hold metformin on discharge due to bump in the creatinine Continue Lantus and Novolog sliding scale Continue monitor BS (7) HLD (hyperlipidemia): Continue statin DVT Ppx: SCDs Code status: FULL PCP: Av Dispo: Plan to discharge home today Total Time Total Time Spent Total Time Spent (In Minutes): 35 minutes Total Time Includes: Examination of the Patient, Discharge Planning, Medication Reconciliation, Communication With Other Providers and Other Discharge Plan Discharge Items Patient Disposition: Home - Self-Care Reason For Visit: GI BLEED Discharge Diagnosis: GI bleeding Acute kidney injury superimposed on chronic kidney disease: Hyperkalemia: Colon cancer: HTN (hypertension): Diabetes mellitus, type II: Activity: Resume your previous activity Non-emergency contact: Primary Care Provider Call non-emergency contact if: you have any medication questions Follow-up/Referrals: Vimal Ley MD [Primary Care Provider] - 09/27/20 11:00 am Diet: Heart Healthy Addtl Attending Provider Instructions: Follow up with your primary care provider Dr. Ley on 09/27 @ 11AM Follow up with gastroenterology to arrange for repeat upper endoscopy in 12 weeks Pathology reports from the scope on 09/23 are pending (your physician will review the result with you) Check BMP next week to monitor your kidney function and electrolytes Continue to hold lisinopril and metformin for now (your physician will tell you when to resume them) Ok to resume aspirin on Saturday, but avoid any other NSAIDs such as motrin, aleve, advil, naproxen, Ibuprofen, ..... Fall precaution Continue pantoprazole daily for 12 weeks Continue monitor your blood sugar Follow a healthy diabetic diet and limited concentrated sweet intake Continue monitor your blood pressure and bring your blood pressure log at your next appointment with your physician Pending Studies at Discharge: Yes Studies:: Pathology result for Endoscopy and Colonoscopy Stand-Alone Forms: My [facility], Smoking Cessation Medications and DC Order Prescriptions: New pantoprazole 40 mg Tablet,Delayed Release (Dr/Ec) 40 mg PO QAM Qty: 30 RF: 0 Continued atorvastatin 40 mg Tablet 40 mg PO QAM RF: 0 lisinopril 30 mg Tablet 30 mg PO QAM RF: 0 multivitamin Capsule 1 cap PO QAM RF: 0 fluticasone propionate [Flonase Allergy Relief] 50 mcg/actuation [place],Suspension 2 spray INTRANASAL DAILY RF: 0 cholecalciferol (vitamin D3) [Vitamin D3] 1,000 unit Capsule 1,000 unit PO QAM RF: 0 Lantus Solostar U-100 Insulin 100 unit/mL (3 mL) Insulin Pen 35 unit SUBCUT QAM RF: 0 aspirin [Aspirin Low Dose] 81 mg Tablet,Delayed Release (Dr/Ec) 81 mg PO QAM RF: 0 acetaminophen 500 mg Tablet 1,000 mg PO TID PRN (Reason: Pain) RF: 0 lisinopril 10 mg tablet 10 mg PO QAM RF: 0 metformin 500 mg tablet extended release 24 hr 500 mg PO QAM RF: 0 diclofenac sodium 1 % gel 2 g TOPICAL BID PRN (Reason: Knee Pain) RF: 0 Discharge Orders: Discharge Order (Routine); Ordered 09/24/20 Ordered By: Carmen Perez/Other Patient Handouts: Managing Type 2 Diabetes Admission Data Admit Date/Time: 09/22/20 16:57 Attending Provider: Carmen Orozco Admit Provider: Oseas Peralta Primary Care Provider: Vimal Ley Other Providers: Oseas Peralta ; Roosevelt Stratton Other Interventions: Discharge Summary Assessment (RN) Last Done: 09/24/20 12:28
== END 2020-09-24 13:13 | disposition home or self-care (01) | DRG 378 ==
LOC: ED 14:05 → SUATTDRO 16:57 → 2N 16:57

== ENCOUNTER 2021-04-25 14:36 | Inpatient (IN) ==
--- NOTE | 2021-04-25 15:09 | Anesthesiology Consultation ---
Date of Service April 25, 2021 Assessment & Plan (1) Encounter for pre-operative examination: Chart Review Chart Review: Acceptable Risk for Surgery, Patient NOT seen in Pre Admission Testing and entry level account representative initiated Consults Requested none History Surgery Operation Date: 04/26/21 16:30 Proposed Procedures p Esophagogastroduodenoscopy Dr. Vega Ferrari MD Height/Weight Height: 5 ft 9 in Weight: 79.9 kg Allergies Allergy/AdvReac Type Severity Reaction Status Date / Time No Known Allergies Allergy Verified 09/22/20 17:11 Medications Home Medications Medication Instructions Recorded Confirmed Last Taken Lantus Solostar U-100 Insulin 35 unit SUBCUT QAM 04/14/19 09/22/20 09/22/20 atorvastatin 40 mg PO QAM 04/14/19 09/22/20 09/22/20 cholecalciferol (vitamin D3) 1,000 unit PO QAM 04/14/19 09/22/20 09/22/20 [Vitamin D3] fluticasone propionate [Flonase 2 spray INTRANASAL DAILY 04/14/19 09/22/20 09/22/20 Allergy Relief] lisinopril 30 mg PO QAM 04/14/19 09/22/20 09/22/20 multivitamin 1 cap PO QAM 04/14/19 09/22/20 09/22/20 acetaminophen 1,000 mg PO TID PRN 09/22/20 09/22/20 Unknown aspirin [Aspirin Low Dose] 81 mg PO QAM 09/22/20 09/22/20 09/22/20 diclofenac sodium 2 g TOPICAL BID PRN 09/22/20 09/22/20 Unknown lisinopril 10 mg PO QAM 09/22/20 09/22/20 09/22/20 metformin 500 mg PO QAM 09/22/20 09/22/20 09/22/20 pantoprazole 40 mg PO QAM #30 tab 09/24/20 Unknown Past Medical History Medical History (Updated 04/25/21 @ 15:15 by Gurwinder Rm MD) Acute GI bleeding Anemia CKD (chronic kidney disease), stage III Colon cancer Colon cancer S/P BOWEL RESECTION June. Diabetes mellitus, type 2 Diabetes mellitus, type II HLD (hyperlipidemia) HTN (hypertension) Hyperlipidemia Hypertension Past Family History Family History Other Heart disease Past Surgical History Surgical History (Updated 04/25/21 @ 15:07 by Gurwinder Rm MD) H/O umbilical hernia repair History of bowel resection JUNE 05 2018 History of cataract extraction with lens replacement B/L History of colonoscopy History of herniorrhaphy UMBILICAL HERNIA S/P right hemicolectomy Social History Smoking Status: Former smoker Smoking cigarettes per day: 0 Hx Alcohol Use: No Hx Substance Use: No substance use type: does not use Physical Exam Vital Signs Last Vital Signs Temp 36.8 C 04/25/21 14:43 Pulse 103 H 04/25/21 14:43 Resp 18 04/25/21 14:43 BP 134/54 L 04/25/21 14:43 Pulse Ox 98 04/25/21 14:43 Testing Electrocardiogram Date: 09/22/20 Findings: + pertinent finding (Test Reason : Blood Pressure : / mmHG Vent. Rate : 084 BPM Atrial Rate : 084 BPM P-R Int : 204 ms QRS Dur : 110 ms QT Int : 362 ms P-R-T Axes : 268 052 044 degrees QTc Int : 427 ms Unusual P axis, possible ectopic atrial rhythm Incomplete right bundle branch blo)
[2021-04-25] MEDS ORDERED: PANTOprazole 40 MG in SYRINGE 0 ML IV ONE (15:18)
[2021-04-25] MEDS ORDERED: SODIUM CHLORIDE 0.9% 500 ML IV STA (15:18)
--- NOTE | 2021-04-25 15:36 | Emergency Department Note ---
Impression & Plan Acute lower GI bleeding, Anemia, Weakness ED Provider Note NAME: TEAGAN SALAS AGE: 85 SEX: M : 1935 ARRIVES VIA: Walk-In INFORMANT: Patient, ED PROVIDER(S): Rustam Mckenna DO CHIEF COMPLAINT: GI bleeding HPI: The patient is an 85-year-old male who presented to the emergency department for an evaluation of rectal bleeding. The patient has noticed black stool along with gross blood per rectum over the course the last month. The patient states he went to see his GI doctor and was referred to the emergency department. The plan is to have the patient resuscitated further than likely colonoscopy tomorrow. He does have a history of colon cancer. He denies having any fever. He had no abdominal pain. He does complain of some weakness as well as shortness of breath with exertion. He notices no chest pain. He has had no changes in his outpatient medication regimen. The patient symptoms are moderate to severe. ROS: See above HPI for pertinent positives & negatives. A total of 10 systems reviewed and were otherwise negative. PAST MEDICAL HISTORY: See Below PAST SURGICAL HISTORY: See Below FAMILY HISTORY: See Below SOCIAL HISTORY: See Below HOME MEDICATIONS: See Below ALLERGIES: See Below VITALS: See Below PHYSICAL EXAMINATION: GENERAL: The patient is awake and alert. He is somewhat anxious appearing. EYES: The conjunctivae are pale. The pupils are round and reactive. EARS, NOSE, MOUTH AND THROAT: The nose is without any evidence of any deformity. Mucous membranes are moist. Tongue is midline. NECK: The neck is nontender and supple. RESPIRATORY: Normal respiratory effort is noted there is no evidence of wheezing rhonchi or rales CARDIOVASCULAR: Regular rate and rhythm noted there no murmurs rubs or gallops normal S1 normal S2. GASTROINTESTINAL: The abdomen is soft and nondistended. There is no tenderness guarding rigidity. Rectal exam revealed gross blood which was strongly heme positive. MUSCULOSKELETAL/EXTREMITIES: There is no evidence of gross deformity full range of motion is noted in the hips and shoulders. SKIN: Skin was cool and pale. Trace pedal edema was noted bilaterally. NEUROLOGIC: Patient is awake alert and oriented x 3. MEDICAL DECISION MAKING: The patient is an 85-year-old male who presented to the emergency department for an evaluation of GI bleeding. The patient started experiencing lower GI bleeding symptoms over the course the last 48 hours. Initially he stated he had black stool but on physical exam was was found to have signs of maroon stool. He has a history of colon cancer. This could be related to his previous colon cancer or possibly a diverticular bleed. The patient was treated with a small fluid bolus but then also had blood ordered. I consented the patient for blood. I discussed the patient's laboratory and radiographic studies with him. I also [facility] They have agreed to evaluate the patient in the emergency department for further management and disposition. Triage Nursing notes reviewed. Prior medical records reviewed Vital Signs: reviewed and remarkable for elevated blood pressure. Differential diagnosis: Diverticulosis, AVM, coagulopathy, colitis, inflammatory bowel disease, malignancy, Vale-Sandoval tear, esophagitis, peptic ulcer disease, variceal bleed, gastritis, epistaxis, fissure, hemorrhoids, as well as other pathologies. ER treatment provided: See below Diagnostics interpreted by me: ECG: EKG was obtained in the emergency department. My interpretation is normal sinus rhythm at 93 bpm. There was no ectopy. There was no acute ST segment abnormalities noted. This was compared to a tracing from September [id number]. No significant changes were noted. Cardiac Monitoring: An order was placed for continuous cardiac monitoring. The monitor shows a rate of 89 bpm with sinus rhythm. Laboratory studies: As stated above and show below. Imaging studies: See below Consultation(s): 1610: I discussed this case with Kaleigh who is [facility] ED COURSE: Procedures: none PDMP:reviewed and no issues Critical Care: I have personally spent greater than 45 minutes of critical care time in the direct management of this patient. This includes bedside care, interpretation of diagnostic studies, and testing, discussion with consultants, patient, and family members, and other required patient management activities. This 45 minutes is in excess of all separately billable procedures. Past Med/Surg History Medical History (Updated 04/25/21 @ 17:28 by Rustam Mckenna DO) Acute GI bleeding Anemia CKD (chronic kidney disease), stage III Colon cancer Colon cancer S/P BOWEL RESECTION June. Diabetes mellitus, type 2 Diabetes mellitus, type II HLD (hyperlipidemia) HTN (hypertension) Hyperlipidemia Hypertension Surgical History H/O umbilical hernia repair History of bowel resection JUNE 05 2018 History of cataract extraction with lens replacement B/L History of colonoscopy History of herniorrhaphy UMBILICAL HERNIA S/P right hemicolectomy Family History Other Heart disease Social History Smoking Status: Former smoker Tobacco Type: Cigarettes Cigarettes Per Day: 0; Second Hand Exposure: No; Hx Alcohol Use: No Hx Substance Use: No Preferred Language: Pashto Communication Ability: Effective 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 Beliefs That Will Affect Care: None Current Living Situation: Spouse Feels Safe at Home: Yes Assistive Devices: None Allergies Allergies Allergy/AdvReac Type Severity Reaction Status Date / Time No Known Allergies Allergy Verified 04/25/21 15:59 Home Meds Home Medications Medication Instructions Recorded Confirmed Lantus Solostar U-100 Insulin 32 unit SUBCUT QAM 04/14/19 04/25/21 atorvastatin 40 mg PO QAM 04/14/19 04/25/21 cholecalciferol (vitamin D3) 1,000 unit PO QAM 04/14/19 04/25/21 [Vitamin D3] fluticasone propionate [Flonase 2 spray INTRANASAL DAILY 04/14/19 04/25/21 Allergy Relief] aspirin [Aspirin Low Dose] 81 mg PO QAM 09/22/20 04/25/21 diclofenac sodium 2 g TOPICAL BID PRN 09/22/20 04/25/21 metformin 500 mg PO QAM 09/22/20 04/25/21 acetaminophen [Tylenol] 325 mg PO Q6 PRN 04/25/21 04/25/21 lisinopril 20 mg PO DAILY 04/25/21 04/25/21 multivitamin with minerals 1 tab PO DAILY 04/25/21 04/25/21 [Multiple Vitamin-Minerals] pantoprazole 40 mg PO BID 04/25/21 04/25/21 Results & Data (ED) Vital Signs Vital Signs - 24 hr 04/25/21 14:43 04/25/21 15:35 04/25/21 15:43 Temperature 36.8 C Temperature Source Temporal Artery Scan Pulse Rate 103 H 91 H 90 Pulse Rate [Right Apical] Pulse Rate from SpO2 Sensor 91 H 90 Respiratory Rate 18 16 15 Respiratory Effort / Characteristics Non-Labored Spontaneous Respiratory Depth Normal Respiratory Pattern Regular Blood Pressure 134/54 L 137/68 Blood Pressure [Left Arm] Blood Pressure Mean 80 91 Blood Pressure Mean [Left Arm] Blood Pressure Position Sitting Pulse Oximetry 98 100 99 Oxygen Delivery Method Room Air Sepsis Recent Fever Within 48 Hours No Sepsis New/Unexplained Change in Mental Status N/A Sepsis Action Taken by Nursing No Action Required 04/25/21 16:00 04/25/21 16:01 04/25/21 16:15 Temperature Temperature Source Pulse Rate 90 89 Pulse Rate [Right Apical] 92 H Pulse Rate from SpO2 Sensor 90 89 Respiratory Rate 17 20 20 Respiratory Effort / Characteristics Respiratory Depth Respiratory Pattern Blood Pressure 152/63 H Blood Pressure [Left Arm] 152/63 H Blood Pressure Mean 92 Blood Pressure Mean [Left Arm] 92 Blood Pressure Position Pulse Oximetry 100 100 100 Oxygen Delivery Method Room Air Sepsis Recent Fever Within 48 Hours Sepsis New/Unexplained Change in Mental Status Sepsis Action Taken by Nursing 04/25/21 16:30 04/25/21 16:31 04/25/21 17:05 Temperature 36.7 C Temperature Source Oral Pulse Rate 89 89 92 H Pulse Rate [Right Apical] Pulse Rate from SpO2 Sensor 89 89 Respiratory Rate 13 23 19 Respiratory Effort / Characteristics Respiratory Depth Respiratory Pattern Blood Pressure 152/70 H 181/93 H Blood Pressure [Left Arm] Blood Pressure Mean 97 122 Blood Pressure Mean [Left Arm] Blood Pressure Position Pulse Oximetry 100 100 100 Oxygen Delivery Method Sepsis Recent Fever Within 48 Hours Sepsis New/Unexplained Change in Mental Status Sepsis Action Taken by Nursing 04/25/21 17:15 Temperature 36.9 C Temperature Source Oral Pulse Rate 88 Pulse Rate [Right Apical] Pulse Rate from SpO2 Sensor Respiratory Rate 20 Respiratory Effort / Characteristics Respiratory Depth Respiratory Pattern Blood Pressure 148/63 H Blood Pressure [Left Arm] Blood Pressure Mean 91 Blood Pressure Mean [Left Arm] Blood Pressure Position Sitting Pulse Oximetry 100 Oxygen Delivery Method Sepsis Recent Fever Within 48 Hours Sepsis New/Unexplained Change in Mental Status Sepsis Action Taken by Assisted Medications Current Medication List: was personally reviewed by me Laboratory Data Attestation: I reviewed the patient's lab results. Result diagrams: 04/25/21 15:24 04/25/21 15:24 Lab Results 04/25/21 04/25/21 04/25/21 Range/Units 15:24 15:24 15:24 WBC 10.93 H (4.8-10.8) K/uL RBC 2.42 L (4.7-6.1) M/uL Hgb 7.7 L (14.0-18.0) g/dL Hct 23.5 L (42-52) % MCV 97.1 (80-100) fL MCH 31.8 (25-34) pg MCHC 32.8 (32-36) g/dL RDW Std Deviation 55.6 H (36.4-46.3) fL RDW Coeff of Scott 15.8 H (11.5-14.5) % Plt Count 219 (130-400) K/uL MPV 10.8 H (7.4-10.4) fL Immature Gran % (Auto) 0.3 % Neut % (Auto) 80.5 % Lymph % (Auto) 11.3 % [place] % (Auto) 6.8 % Eos % (Auto) 0.8 % Baso % (Auto) 0.3 % Neut # (Auto) 8.81 H (1.4-6.5) K/uL Lymph # (Auto) 1.23 (1.2-3.4) K/uL [place] # (Auto) 0.74 H (0.11-0.59) K/uL Eos # (Auto) 0.09 (0-0.5) K/uL Baso # (Auto) 0.03 (0-0.2) K/uL Immature Gran # (Auto) 0.03 H (0.00-0.02) K/uL Ovalocytes 1+ PT 10.9 (9.0-12.0) Seconds INR 1.1 (0.9-1.1) APTT 21.1 (21.0-31.0) Seconds PTT Ratio 0.8 Sodium (136-145) mmol/L Potassium (3.5-5.1) mmol/L Chloride (98-107) mmol/L Carbon Dioxide (21-32) mmol/L Anion Gap (3-11) BUN (7-18) mg/dl Creatinine (0.6-1.4) mg/dl Est Cr Clr Drug Dosing ml/min Est GFR ( Amer) ml/min Est GFR (Non-Af Amer) ml/min BUN/Creatinine Ratio (10-20) Glucose (70-99) mg/dl Calcium (8.5-10.1) mg/dl Total Bilirubin (0.2-1) mg/dl AST (15-37) U/L ALT (12-78) U/L Alkaline Phosphatase (45-117) U/L Troponin I (0-0.045) ng/ml Total Protein (6.4-8.2) gm/dl Albumin (3.4-5.0) gm/dl Globulin (2.5-4.0) gm/dl Albumin/Globulin Ratio (0.9-2) Lipase (73-393) U/L COVID-19 Eval Order SARS-CoV-2 (PCR) (Negative) Blood Type O Positive Antibody Screen NEGATIVE Crossmatch See Detail 04/25/21 04/25/21 04/25/21 Range/Units 15:24 15:49 15:49 WBC (4.8-10.8) K/uL RBC (4.7-6.1) M/uL Hgb (14.0-18.0) g/dL Hct (42-52) % MCV (80-100) fL MCH (25-34) pg MCHC (32-36) g/dL RDW Std Deviation (36.4-46.3) fL RDW Coeff of Scott (11.5-14.5) % Plt Count (130-400) K/uL MPV (7.4-10.4) fL Immature Gran % (Auto) % Neut % (Auto) % Lymph % (Auto) % [place] % (Auto) % Eos % (Auto) % Baso % (Auto) % Neut # (Auto) (1.4-6.5) K/uL Lymph # (Auto) (1.2-3.4) K/uL [place] # (Auto) (0.11-0.59) K/uL Eos # (Auto) (0-0.5) K/uL Baso # (Auto) (0-0.2) K/uL Immature Gran # (Auto) (0.00-0.02) K/uL Ovalocytes PT (9.0-12.0) Seconds INR (0.9-1.1) APTT (21.0-31.0) Seconds PTT Ratio Sodium 144 (136-145) mmol/L Potassium 5.2 H (3.5-5.1) mmol/L Chloride 119 H (98-107) mmol/L Carbon Dioxide 20 L (21-32) mmol/L Anion Gap 4.0 (3-11) BUN 46 H (7-18) mg/dl Creatinine 1.72 H (0.6-1.4) mg/dl Est Cr Clr Drug Dosing 32.0 ml/min Est GFR ( Amer) 41.4 ml/min Est GFR (Non-Af Amer) 35.7 ml/min BUN/Creatinine Ratio 26.5 H (10-20) Glucose 89 (70-99) mg/dl Calcium 9.2 (8.5-10.1) mg/dl Total Bilirubin 0.5 (0.2-1) mg/dl AST 9 L (15-37) U/L ALT 15 (12-78) U/L Alkaline Phosphatase 68 (45-117) U/L Troponin I < 0.015 (0-0.045) ng/ml Total Protein 6.4 (6.4-8.2) gm/dl Albumin 3.7 (3.4-5.0) gm/dl Globulin 2.7 (2.5-4.0) gm/dl Albumin/Globulin Ratio 1.4 (0.9-2) Lipase 84 (73-393) U/L COVID-19 Eval Order Covid19 at [facility] SARS-CoV-2 (PCR) NEGATIVE (Negative) Blood Type Antibody Screen Crossmatch Administered Medications Discontinued Medications Sodium Chloride (Nss) 500 mls @ 999 mls/hr IV .Q31M STA Stop: 04/25/21 15:48 Last Infusion: 04/25/21 16:24 Dose: 0 mls/hr Documented by: [id number] Admin: 04/25/21 15:42 Dose: 999 mls/hr Documented by: [id number] Pantoprazole Sodium 40 mg/ (Syringe) 10 mls @ 5 mls/min IV NOW ONE Stop: 04/25/21 15:19 Last Admin: 04/25/21 15:42 Dose: 5 mls/min Documented by: [id number] Imaging Data Radiologist's Impression: Chest X-Ray 04/25/21 15:18 XR chest 1V portable CLINICAL HISTORY: Gastrointestinal hemorrhage COMPARISON STUDY: May 28, 2018 FINDINGS: The cardiac and mediastinal contours are normal. There is no evidence of focal pulmonary consolidation. There is no evidence of failure. 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 IMPRESSION: No active disease in the chest. ACT 112: Negative or not required by law. Electronically signed by: Devin Bhatt M.D. 04/25/2021 4:18 PM Discharge Plan Visit Data Chief Complaint: GI Assessment Stated Complaint: GI ASSESSMENT ED Provider: Rustam Mckenna Discharge Problem: Acute lower GI bleeding, Anemia, Weakness Patient Disposition: Admitted As Inpatient Condition: Good Forms Stand Alone Forms: [facility] [employer] Prescriptions Prescriptions: No Action atorvastatin 40 mg Tablet 40 mg PO QAM RF: 0 fluticasone propionate [Flonase Allergy Relief] 50 mcg/actuation [place],Suspension 2 spray INTRANASAL DAILY RF: 0 cholecalciferol (vitamin D3) [Vitamin D3] 1,000 unit Capsule 1,000 unit PO QAM RF: 0 Lantus Solostar U-100 Insulin 100 unit/mL (3 mL) Insulin Pen 32 unit SUBCUT QAM RF: 0 aspirin [Aspirin Low Dose] 81 mg Tablet,Delayed Release (Dr/Ec) 81 mg PO QAM RF: 0 metformin 500 mg tablet extended release 24 hr 500 mg PO QAM RF: 0 diclofenac sodium 1 % gel 2 g TOPICAL BID PRN (Reason: Knee Pain) RF: 0 lisinopril 20 mg tablet 20 mg PO DAILY RF: 0 pantoprazole 40 mg tablet,delayed release (DR/EC) 40 mg PO BID RF: 0 acetaminophen [Tylenol] 325 mg Tablet 325 mg PO Q6 PRN (Reason: Fever Or Pain) RF: 0 multivitamin with minerals [Multiple Vitamin-Minerals] Tablet 1 tab PO DAILY RF: 0 Referrals Referrals: Vimal Ley MD [Primary Care Provider] - Discharge Problem: Anemia Qualifiers: Anemia type: unspecified type Qualified Code(s): D64.9 - Anemia, unspecified
[2021-04-25 15:41] LABS: Basophils # (auto) 0.03 K/uL (0-0.2); Basophils % (auto) 0.3 %; Eosinophils # (auto) 0.09 K/uL (0-0.5); Eosinophils % (auto) 0.8 %; Hematocrit (blood only) 23.5 % (42-52); Hemoglobin 7.7 g/dL (14.0-18.0); Immature Granulocytes # (auto) 0.03 K/uL (0.00-0.02); Immature Granulocytes % (auto) 0.3 %; Lymphocytes # (auto) 1.23 K/uL (1.2-3.4); Lymphocytes % (auto) 11.3 %; Mean Corpuscular Hemoglobin 31.8 pg (25-34); Mean Corpuscular Hgb Conc 32.8 g/dL (32-36); Mean Corpuscular Volume 97.1 fL (80-100); Mean Platelet Volume 10.8 fL (7.4-10.4); Monocytes # (auto) 0.74 K/uL (0.11-0.59); Monocytes % (auto) 6.8 %; Neutrophils # (auto) 8.81 K/uL (1.4-6.5); Neutrophils % (auto) 80.5 %; Platelet Count 219 K/uL (130-400); RDW Coefficient of Variation 15.8 % (11.5-14.5); RDW Standard Deviation 55.6 fL (36.4-46.3); Red Blood Count 2.42 M/uL (4.7-6.1); White Blood Count 10.93 K/uL (4.8-10.8)
[2021-04-25 15:50] LABS: INR 1.1 (0.9-1.1); Partial Thromboplastin Ratio 0.8; Partial Thromboplastin Time 21.1 Seconds (21.0-31.0); Prothrombin Time 10.9 Seconds (9.0-12.0)
[2021-04-25 16:00] LABS: Alanine Aminotransferase 15 U/L (12-78); Albumin Level 3.7 gm/dl (3.4-5.0); Aspartate Aminotransferase 9 U/L (15-37); BUN Creatinine Ratio 26.5 (10-20); Blood Urea Nitrogen 46 mg/dl (7-18); Calcium 9.2 mg/dl (8.5-10.1); Carbon Dioxide 20 mmol/L (21-32); Chloride 119 mmol/L (98-107); Est GFR (African American) 41.4 ml/min; Est GFR (Non-African American) 35.7 ml/min; Glucose 89 mg/dl (70-99); Lipase 84 U/L (73-393); Potassium 5.2 mmol/L (3.5-5.1); Sodium 144 mmol/L (136-145)
[2021-04-25 16:04] LABS: Albumin Globulin Ratio 1.4 (0.9-2); Alkaline Phosphatase 68 U/L (45-117); Bilirubin,Total 0.5 mg/dl (0.2-1); Globulin 2.7 gm/dl (2.5-4.0); Total Protein 6.4 gm/dl (6.4-8.2); Troponin I < 0.015 ng/ml (0-0.045)
--- NOTE | 2021-04-25 16:07 | Communication Note ---
Date of Service: April 25, 2021 This is an 85 y/o male with history of colon CA s/p resection, who has been having reported melena/hematochezia x several days, was due to have EGD today and HGB as an outpt found to be 10-> 8.3. Pt was referred to the ER from outpt endoscopy who contacted us to discuss inpt endoscopy. Was referred to the ER for further care. On arrival HGB 7.7 and BUN 46. Given presenation, concern is for possible UGIB; also consider SB vs colonic source. Recommend: - IV PPI - Trend H&H, transfuse PRN - Monitor and document GI output - Pt can have clear liquids now - Make NPO after midnight - IVF - Plan for EGD tomorrow to evaluate for potential source of UGIB - Full consult tomorrow
[2021-04-25] MEDS ORDERED: SODIUM CHLORIDE 0.9% 250 ML IV PRN (16:09)
--- NOTE | 2021-04-25 16:12 | History & Physical Report ---
Date of Service April 25, 2021 Assessment & Plan (1) Acute GI bleeding: -Admit to PCU -Hgb 7.7 on admission, previously was 11 on in Nov. Type and cross, blood consented. Transfuse 1 U - tachycardic, but otherwise hemodynamically stable. -Consult GI, Dr. Ferrari medical consultant, discussed with Erika Mancilla-plan for EGD tomorrow, allow clears for now and make n.p.o. after midnight, possible will need colonoscopy pending findings of EGD -IV famotidine BID while inpatient, hold p.o. pantoprazole -Hold baby aspirin (2) Colon cancer: -History of such in 2017, last EGD and colonoscopy were in September 2020 -EGD was noted to have mild diffuse inflammation in the entire stomach. Nonbleeding diverticulum found in the area of the papilla, second and third portion of duodenum were normal. -Colonoscopy reviewed showing nonthrombosed external hemorrhoid, prior end-to-side ileocolonic anastomosis in the transverse colon. Moderate internal hemorrhoids. (3) S/P right hemicolectomy: -hx of such in 2018 as above (4) Anemia: -Hgb 7.7, likely secondary to acute blood loss -Follow H&H (next check at 2100, then with am labs) (5) Hyperlipidemia: - Cont atorvastatin (6) HTN (hypertension): -Lisinopril 20 mg daily - missed this mornings dose for anticipated EGD, will give dose now and then resume with morning meds. (7) Diabetes mellitus, type II: -Hold metformin -Last A1c was 6.8, recheck with a.m. labs -ISS with Accu-Cheks ACHS -Lantus reduced in half to 16 U tomorrow am since NPO after midnight. Resume 32 QAM once ordered a diet. (8) CKD (chronic kidney disease), stage III: -History of such -BUN 46, CR 1.72, follow with a.m. labs -Continue lisinopril as above DVT PPx: - teds, scds, no anticoagulation secondary to GI bleed CODE: DNR/DNI Dispo: From home, likely to remain in the hospital x 1-2 days. 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 Patient was scheduled to have EGD by Dr. Carrion this morning as an outpatient at [facility], however upon discovery of continued dark tarry bowel movements and blood it was thought that the procedure should be canceled and patient was referred to the ER for further work-up. Patient reports that he had 9 days of diarrhea followed by 3 days of dark tarry bowel movements and maroon-colored stools. He denies abdominal pain, nausea, vomiting, lightheadedness or dizziness. Denies any changes in appetite or diet. He did feel that he was more pale this morning. Patient lives at home with his . Denies any recent falls but does use a cane for balance. Allergies Allergy/AdvReac Type Severity Reaction Status Date / Time No Known Allergies Allergy Verified 04/25/21 15:59 Home Medications Medication Instructions Recorded Confirmed Type Lantus Solostar U-100 Insulin 32 unit SUBCUT QAM 04/14/19 04/25/21 History atorvastatin 40 mg PO QAM 04/14/19 04/25/21 History cholecalciferol (vitamin D3) 1,000 unit PO QAM 04/14/19 04/25/21 History [Vitamin D3] fluticasone propionate [Flonase 2 spray INTRANASAL DAILY 04/14/19 04/25/21 History Allergy Relief] aspirin [Aspirin Low Dose] 81 mg PO QAM 09/22/20 04/25/21 History diclofenac sodium 2 g TOPICAL BID PRN 09/22/20 04/25/21 History metformin 500 mg PO QAM 09/22/20 04/25/21 History acetaminophen [Tylenol] 325 mg PO Q6 PRN 04/25/21 04/25/21 History lisinopril 20 mg PO DAILY 04/25/21 04/25/21 History multivitamin with minerals 1 tab PO DAILY 04/25/21 04/25/21 History [Multiple Vitamin-Minerals] pantoprazole 40 mg PO BID 04/25/21 04/25/21 History Past Med/Surg History Medical History (Updated 04/25/21 @ 16:08 by Sue Orozco PA-C) Acute GI bleeding Anemia CKD (chronic kidney disease), stage III Colon cancer Colon cancer S/P BOWEL RESECTION June. Diabetes mellitus, type 2 Diabetes mellitus, type II HLD (hyperlipidemia) HTN (hypertension) Hyperlipidemia Hypertension Surgical History H/O umbilical hernia repair History of bowel resection JUNE 05 2018 History of cataract extraction with lens replacement B/L History of colonoscopy History of herniorrhaphy UMBILICAL HERNIA S/P right hemicolectomy Family History Other Heart disease Social History Smoking Status: Former smoker Tobacco Type: Cigarettes Cigarettes Per Day: 0; Second Hand Exposure: No; Hx Alcohol Use: No Hx Substance Use: No Preferred Language: Montenegrin Communication Ability: Effective Counseling Department Chair Required: No Beliefs That Will Affect Care: None Current Living Situation: Spouse Feels Safe at Home: Yes Assistive Devices: None Review of Systems Review of Systems: Constitutional: No fever, sweats or chills, + pale Eyes: No diplopia, no worsening or blurred vision ENT: normal hearing, no trouble swallowing Respiratory: No cough, sputum, dyspnea at rest or on exertion Cardiovascular: No chest pain, tightness or palpitations Abdomen: As per HPI, no pain, nausea, vomiting or constipation Musculoskeletal: No joint pain, calf pain, swelling Neurologic: No weakness, numbness/tingling, or balance problems Psychiatric: No anxiety or depression Skin: No rash or itch Physical Exam Physical Exam: General: awake, alert, no apparent distress, + pallor Head: Normocephalic, atraumatic ENT: PERRL, EOMI, no pharyngeal exudate, mucous membranes moist Chest: Clear to auscultation, on room air, no adventitious breath sounds Cardiac: Regular rate and rhythm, tachycardic with heart rate in the mid 90s, no murmur, no JVD, normal peripheral pulses, good capillary refill Abdominal: NABS x 4 quadrants, soft, nondistended, nontender to palpation, no rebound or guarding Extremities: Normal inspection, no peripheral edema or erythema, calfs nontender to palpation Back: Normal ROM, previous left upper back scar from cyst removal. Psych: Normal mood and affect Neuro: AAO x 3, strength intact bilaterally and rated 5/5, no motor deficits, speech is clear, no peripheral sensory deficits Results & Data Results & Data ([facility]) Vital Signs (Past 12 Hours) Vital Signs Temp Pulse Resp BP Pulse Ox 04/25/21 14:43 36.8 C 103 H 18 134/54 L 98 Diagnostic Findings Chest X-Ray 04/25/21 15:18 XR chest 1V portable CLINICAL HISTORY: Gastrointestinal hemorrhage COMPARISON STUDY: May 28, 2018 FINDINGS: The cardiac and mediastinal contours are normal. There is no evidence of focal pulmonary consolidation. There is no evidence of failure. 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 IMPRESSION: No active disease in the chest. ACT 112: Negative or not required by law. Electronically signed by: Devin Bhatt M.D. 04/25/2021 4:18 PM ECG Additional Comments: Vent. Rate : 093 BPM Atrial Rate : 093 BPM P-R Int : 192 ms QRS Dur : 098 ms QT Int : 340 ms QTc Int : 422 ms Normal sinus rhythm Incomplete right bundle branch block Borderline ECG When compared with ECG of 23-SEP-2020 11:39, Sinus rhythm has replaced Ectopic atrial rhythm Code Status & VTE Plan Code Status DNR/DNI Supervising Physician Co-Signing Physician Notes I saw this patient with the physician assistant boys track coach, I participated in the history, physical, review of systems, and physical exam. I reviewed the medications with the patient and the physician assistant boys track coach and helped reconcile the medications. I helped take a detailed family and social history as well. I formulated the assessment and plan personally with the physician assistant boys track coach and went over it with the patient. ROS-No Headache, No Visual Changes, No Nausea, No Vomiting, No Fever, No Chills, No Neck Pain or Stiffness, No Chest Pain, No Palpitations, No SOB, No CONTRERAS, No Cough, No Sputum, No Wheezing, No Abdominal Pain, No Diarrhea, No Hematemesis, No Hemoptysis, No Unexpected Weight Loss, No Flank pain, + Melena, + Hematochezia, No Frequency, No Urgency, No Burning, No Hematuria, No Rashes, No Diaphoresis. Appetite is Normal Physical Exam Gen-AAO x 3, NAD, Afebrile, Pale Head-NCAT, EOMI, PERRLA, Anicteric Sclera, No Posterior Pharyngeal Erythema Neck-Supple, No JVD, No Thyromegaly, No Masses, No LAD, No Bruits Lungs-Clear to Auscultation Bilaterally, No Rales, No Rhonchi, No Wheezing, No Crepitus Chest-Tachy, No S4, +S1, +S2, No S3, No Murmurs, No Rubs, No Gallops, No Ectopy Abdomen-Soft, Bowel Sounds Present, Non Tender, Non Distended, No Hepatomegaly, No Splenomegaly, No Palpable Masses, No Rebound, No Rigidity, No Guarding Musculoskeletal-Full Range of Motion Bilaterally, No CVAT Extremities-No Cyanosis, No Clubbing, No Edema Nuero-Cranial Nerves II-XII grossly intact, Motor WNL, DTRs WNL, Strength WNL, Non Focal Psych-Normal Mood
--- NOTE | 2021-04-25 16:19 | XRay Report ---
XR chest 1V portable CLINICAL HISTORY: Gastrointestinal hemorrhage COMPARISON STUDY: May 28, 2018 FINDINGS: The cardiac and mediastinal contours are normal. There is no evidence of focal pulmonary co nsolidation. There is no evidence of failure. 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 IMPRESSION: No active disease in the chest. ACT 112: Negative or not required by law. Electronically signed by: Devin Bhatt M.D. 04/25/2021 4:18 PM
--- NOTE | 2021-04-25 16:26 | Electrocardiogram Report ---
Test Reason : Blood Pressure : / mmHG Vent. Rate : 093 BPM Atrial Rate : 093 BPM P-R Int : 192 ms QRS Dur : 098 ms QT Int : 340 ms P-R-T Axes : 000 033 027 degrees QTc Int : 422 ms Normal sinus rhythm Incomplete right bundle branch block Borderline ECG When compared with ECG of 23-SEP-2020 11:39, Sinus rhythm has replaced Ectopic atrial rhythm Confirmed by Rustam Gardiner ([id number]) on 04/25/2021 4:26:04 PM Referred By: Confirmed By:Rustam Gardiner
[2021-04-25 16:40] LABS: Ovalocytes 1+
[2021-04-25] MEDS ORDERED: DICLOFENAC SOD 1% GEL 100 GM TUBE EXT PRN (17:10)
[2021-04-25] MEDS ORDERED: lisinopril 20 MG TAB PO ONE (17:20)
[2021-04-25 17:31] LABS: Appearance Urine Clear (Clear); Bilirubin Urine Negative (Negative); Blood Urine Negative (Negative); Color Urine Yellow; Glucose Urine UA Negative (Negative); Ketones Urine Negative (Negative); Leukocyte Esterase Urine Negative (Negative); Nitrite Urine Negative (Negative); Protein Urine Negative (Negative); Specific Gravity Urine 1.015 (1.000-1.030); Urobilinogen Urine Negative (Negative)
[2021-04-25] MEDS ORDERED: ACETAMINOPHEN 325 MG TAB PO PRN (18:21)
[2021-04-25] MEDS ORDERED: ONDANSETRON INJ 2 MG/ML 2 ML VIAL IV PRN (18:21)
[2021-04-25] MEDS ORDERED: GLUCOSE 40% GEL 15 GM TUBE PO PRN (18:21)
[2021-04-25] MEDS ORDERED: GLUCAGON FOR INJ 1 MG VIAL SQ PRN (18:21)
[2021-04-25] MEDS ORDERED: DEXTROSE 50% 50 ML SYRINGE IV PRN (18:21)
[2021-04-25] MEDS ORDERED: GLUCOSE 10 TABS/TUBE PO PRN (18:21)
[2021-04-25] MEDS ORDERED: CARBOHYDRATES FOR HYPOGLYCEMIA PO PRN (18:21)
[2021-04-25] MEDS: INSULIN ASPART 100 UNITS/ML 3 ML PEN SC SCH ×2 (19:05→21:35)
[2021-04-25] MEDS ORDERED: FAMOTIDINE 20MG/5ML IV PUSH IV SCH (21:00)
[2021-04-25] MEDS: FAMOTIDINE 20 MG in SYRINGE 3 ML IV SCH (21:27)
[2021-04-25 23:16] LABS: Hematocrit (blood only) 26.8 % (42-52); Hemoglobin 8.9 g/dL (14.0-18.0)
[2021-04-26 06:19] LABS: Basophils # (auto) 0.03 K/uL (0-0.2); Basophils % (auto) 0.3 %; Eosinophils % (auto) 3.2 %; Estimated Average Glucose 134 mg/dl; Hematocrit (blood only) 27.4 % (42-52); Hemoglobin 9.1 g/dL (14.0-18.0); Hemoglobin A1C 6.3 % (4.5-5.6); Immature Granulocytes # (auto) 0.02 K/uL (0.00-0.02); Immature Granulocytes % (auto) 0.2 %; Lymphocytes % (auto) 17.1 %; Mean Corpuscular Hemoglobin 30.5 pg (25-34); Mean Corpuscular Hgb Conc 33.2 g/dL (32-36); Mean Corpuscular Volume 91.9 fL (80-100); Mean Platelet Volume 11.5 fL (7.4-10.4); Monocytes # (auto) 0.95 K/uL (0.11-0.59); Monocytes % (auto) 10.2 %; Neutrophils # (auto) 6.45 K/uL (1.4-6.5); Platelet Count 123 K/uL (130-400); RDW Coefficient of Variation 17.7 % (11.5-14.5); RDW Standard Deviation 58.5 fL (36.4-46.3); Red Blood Count 2.98 M/uL (4.7-6.1); White Blood Count 9.35 K/uL (4.8-10.8)
--- NOTE | 2021-04-26 08:09 | Gastrointestinal Consultation ---
Date of Consultation April 26, 2021 Supervising Physician Co-Signing Physician Notes EGD for evaluation of reports of melena. History of Present Illness Reason for Consultation: Melena, Hematochezia Requesting Physician: Dr. Nathan Attending Physician: Hakeem Nathan DO History of Present Illness 85 yo male with a history of htn, prostate cancer, colon cancer s/p right hemicolectomy, admitted thru the er after being seen at [facility] yesterday for an outpatient egd. He had a history of prior egd/colon in 2019 with findings of duodenitis on biopsies and anastomotic ulcers. The team at [facility] given reports of melena felt he should come to the hospital. He was admitted thru the er. Given IV Pepcid overnite. No reports of bloody bowel movements, hematemesis, belly pain over nite. No other complaints this am. He reports he does not recall having prior scopes. Allergies Allergy/AdvReac Type Severity Reaction Status Date / Time No Known Allergies Allergy Verified 04/25/21 15:59 Home Medications Medication Instructions Recorded Confirmed Type Lantus Solostar U-100 Insulin 32 unit SUBCUT QAM 04/14/19 04/25/21 History atorvastatin 40 mg PO QAM 04/14/19 04/25/21 History cholecalciferol (vitamin D3) 1,000 unit PO QAM 04/14/19 04/25/21 History [Vitamin D3] fluticasone propionate [Flonase 2 spray INTRANASAL DAILY 04/14/19 04/25/21 History Allergy Relief] aspirin [Aspirin Low Dose] 81 mg PO QAM 09/22/20 04/25/21 History diclofenac sodium 2 g TOPICAL BID PRN 09/22/20 04/25/21 History metformin 500 mg PO QAM 09/22/20 04/25/21 History acetaminophen [Tylenol] 325 mg PO Q6 PRN 04/25/21 04/25/21 History lisinopril 20 mg PO DAILY 04/25/21 04/25/21 History multivitamin with minerals 1 tab PO DAILY 04/25/21 04/25/21 History [Multiple Vitamin-Minerals] pantoprazole 40 mg PO BID 04/25/21 04/25/21 History Patient History Medical History (Updated 04/25/21 @ 17:28 by Rustam Mckenna DO) Acute GI bleeding Anemia CKD (chronic kidney disease), stage III Colon cancer Colon cancer S/P BOWEL RESECTION June. Diabetes mellitus, type 2 Diabetes mellitus, type II HLD (hyperlipidemia) HTN (hypertension) Hyperlipidemia Hypertension Surgical History H/O umbilical hernia repair History of bowel resection JUNE 05 2018 History of cataract extraction with lens replacement B/L History of colonoscopy History of herniorrhaphy UMBILICAL HERNIA S/P right hemicolectomy Family History Other Heart disease Social History Smoking Status: Former smoker Tobacco Type: Cigarettes Cigarettes Per Day: 0; Second Hand Exposure: No; Hx Alcohol Use: No Hx Substance Use: No Preferred Language: Malay Communication Ability: Effective Trimming Department Blocker Required: No Beliefs That Will Affect Care: None Current Living Situation: Spouse Other Information That Helps Us Care for You: No Feels Safe at Home: Yes Safety Concerns: Feels Safe At This Time Assistive Devices: Cane Review of Systems Review of Systems: All systems reviewed & are unremarkable except as noted in HPI & below Physical Exam Physical Exam: Well nourished elderly male in nad Constitutional: WD/WN, vitals as above well developed and well nourished; no acute distress Eyes: PERRL, conjunctivae normal, anicteric sclerae Respiratory: normal respiratory effort, lungs clear to auscultation Cardiovascular: RRR, no murmur, no edema Gastrointestinal (Abdomen): normal bowel sounds, soft, nontender, no hepatosplenomegaly Musculoskeletal: no cyanosis or clubbing, extremities motor strength 5/5 Skin: no rashes, warm and dry Neurologic: PERRL, EOMI, accommodation nl, no face palsy, no dysarthria Results & Data ([facility]) Vital Signs (Past 12 Hours) Vital Signs Temp Pulse Pulse Resp BP BP BP 04/26/21 08:04 36.5 C 76 14 146/71 H 04/26/21 03:25 36.8 C 79 18 139/74 04/25/21 23:57 36.8 C 68 18 132/70 04/25/21 22:49 70 04/25/21 22:27 36.7 C 60 18 152/72 H 04/25/21 22:15 36.8 C 61 18 160/56 H 04/25/21 21:15 36.8 C 57 L 18 136/70 04/25/21 20:15 36.8 C 79 18 148/76 H Pulse Ox 04/26/21 08:04 96 04/26/21 03:25 97 04/25/21 23:57 98 04/25/21 22:49 04/25/21 22:27 99 04/25/21 22:15 100 04/25/21 21:15 100 04/25/21 20:15 100 Labs reviewed- hgb has risen after 1 unit over nite
--- NOTE | 2021-04-26 09:07 | Hospitalist Progress Note ---
Date of Service April 26, 2021 Assessment & Plan (1) Acute GI bleeding: -Hgb 7.7 on admission, previously was 11 on in Nov. Type and cross, blood consented. Transfuse 1 U - tachycardic, but otherwise hemodynamically stable. Hb 9.1 today -GI, to see plan for EGD today, NPO -IV famotidine BID while inpatient, hold p.o. pantoprazole -Hold baby aspirin (2) Colon cancer: -History of such in 2017, last EGD and colonoscopy were in September 2020 -EGD was noted to have mild diffuse inflammation in the entire stomach. Nonbleeding diverticulum found in the area of the papilla, second and third portion of duodenum were normal. -Colonoscopy reviewed showing nonthrombosed external hemorrhoid, prior end-to-side ileocolonic anastomosis in the transverse colon. Moderate internal hemorrhoids. (3) S/P right hemicolectomy: -hx of such in 2018 as above (4) Anemia: -Hgb 7.7, likely secondary to acute GI blood loss -Follow H&H (5) Hyperlipidemia: - Cont atorvastatin (6) HTN (hypertension): -Lisinopril 20 mg daily - missed this mornings dose for anticipated EGD, will give dose now and then resume with morning meds. (7) Diabetes mellitus, type II: -Hold metformin -Last A1c was 6.8, recheck with a.m. labs -ISS with Accu-Cheks ACHS -Lantus reduced in half to 16 U tomorrow am since NPO after midnight. Resume 32 QAM once ordered a diet. (8) CKD (chronic kidney disease), stage III: -History of such -BUN 46, CR 1.72, follow with a.m. labs -Continue lisinopril as above DVT PPx: - teds, scds, no anticoagulation secondary to GI bleed CODE: DNR/DNI Dispo: From home, likely DC 1-2 days. ROS-No Headache, No Visual Changes, No Nausea, No Vomiting, No Fever, No Chills, No Neck Pain or Stiffness, No Chest Pain, No Palpitations, No SOB, No CONTRERAS, No Cough, No Sputum, No Wheezing, No Abdominal Pain, No Diarrhea, No Hematemesis, No Hemoptysis, No Unexpected Weight Loss, No Flank pain, No Melena, No Hematochezia, No Frequency, No Urgency, No Burning, No Hematuria, No Rashes, No Diaphoresis. Appetite is Normal Physical Exam Gen-AAO x 3, NAD, Afebrile, Pale Head-NCAT, EOMI, PERRLA, Anicteric Sclera, No Posterior Pharyngeal Erythema Neck-Supple, No JVD, No Thyromegaly, No Masses, No LAD, No Bruits Lungs-Clear to Auscultation Bilaterally, No Rales, No Rhonchi, No Wheezing, No Crepitus Chest-No S4, +S1, +S2, No S3, No Murmurs, No Rubs, No Gallops, No Ectopy Abdomen-Soft, Bowel Sounds Present, Non Tender, Non Distended, No Hepatomegaly, No Splenomegaly, No Palpable Masses, No Rebound, No Rigidity, No Guarding Musculoskeletal-Full Range of Motion Bilaterally, No CVAT Extremities-No Cyanosis, No Clubbing, No Edema Nuero-Cranial Nerves II-XII grossly intact, Motor WNL, DTRs WNL, Strength WNL, Non Focal Psych-Normal Mood Admission and Anticipated Discharge Date Admission Date: April 25, 2021 Results & Data Results & Data ([facility]) Vital Signs (Past 12 Hours) Vital Signs Temp Pulse Pulse Resp BP BP BP 04/26/21 08:04 36.5 C 76 14 146/71 H 04/26/21 03:25 36.8 C 79 18 139/74 04/25/21 23:57 36.8 C 68 18 132/70 04/25/21 22:49 70 04/25/21 22:27 36.7 C 60 18 152/72 H 04/25/21 22:15 36.8 C 61 18 160/56 H 04/25/21 21:15 36.8 C 57 L 18 136/70 Pulse Ox 04/26/21 08:04 96 04/26/21 03:25 97 04/25/21 23:57 98 04/25/21 22:49 04/25/21 22:27 99 04/25/21 22:15 100 04/25/21 21:15 100
[2021-04-26] MEDS: INSULIN ASPART 100 UNITS/ML 3 ML PEN SC SCH ×4 (09:16→21:48)
--- NOTE | 2021-04-26 10:12 | GI REPORT ---
Patient Name: Gopi Irvin Procedure Date: 04/26/2021 9:50 AM Date of : 1935 Admit Type: Inpatient Age: 85 Gender: Male Attending MD: Nolvia Ferrari M.d. Procedure: Upper GI endoscopy Providers: Nolvia Ferrari M.d. Referring MD: Vimal Ley Indications: Melena Medicines: Propofol per Anesthesia, Lidocaine Complications: No immediate complications. Estimated Blood Loss: Estimated blood loss: none. Procedure: Pre-Anesthesia Assessment: - Patient identification and proposed procedure were verified prior to the procedure by the physician, the nurse and the anesthesiologist. The procedure was verified in the pre-procedure area. - Prior to the procedure, a History and Physical was performed, and patient medications, allergies and sensitivities were reviewed. The patient's tolerance of previous anesthesia was reviewed. - The risks and benefits of the procedure and the sedation options and risks were discussed with the patient. All questions were answered and informed consent was obtained. After obtaining informed consent, the endoscope was passed under direct vision. Throughout the procedure, the patient's blood pressure, pulse, and oxygen saturations were monitored continuously. The Scope was introduced through the mouth, and advanced to the second part of duodenum. The upper GI endoscopy was accomplished without difficulty. The patient tolerated the procedure well. Findings: The examined esophagus appeared normal. The Z-line appeared regular. The examined stomach appeared normal. Localized mildly erythematous mucosa without bleeding was found in the gastric antrum. Biopsies were taken with a cold forceps for Helicobacter pylori testing. The pathology specimen was placed into Bottle A. Verification of patient identification for the specimen was done by the physician and nurse using the patient's name and medical record number. The examined stomach otherwise appeared normal. A single 10 mm sessile polyp with no bleeding was found in the duodenal bulb - this appeared the same per hist last endoscopy 6-7 months ago with biopsies at that time showing duodenitis. The duodenal bulb and second portion of the duodenum appeared normal. Bile was present. Impression: - Normal esophagus. - Z-line regular. - Normal stomach. - Erythematous mucosa in the antrum. Biopsied. - A single duodenal polyp - biopsied before with findings consistent with duodenitis. - Normal duodenal bulb and second portion of the duodenum. Recommendation: - Await pathology results. - Return to the floor. Nolvia Ferrari M.D. Nolvia Ferrari M.d. 04/26/2021 10:11:34 AM This report has been signed electronically. Note Initiated On: 04/26/2021 9:50 AM Number of Addenda: 0 I attest to the content of the Intraoperative Record and orders documented therein, exceptions below {[id number]}
[2021-04-26] MEDS ORDERED: LIDOCAINE 2% 2 ML VIAL/AMP(20MG/ML) INFIL ONE (10:14)
[2021-04-26] MEDS ORDERED: PROPOFOL IV EMULSION 10 MG/ML 20 ML VIAL IV ONE (10:14)
--- NOTE | 2021-04-26 10:18 | Anesthesiology Progress Note ---
Date of Service April 26, 2021 Anesthesia Post Procedure Vital Signs Vital Signs: Temp Pulse Pulse Pulse Resp BP BP 04/26/21 10:10 99 H 12 133/65 04/26/21 09:14 36.9 C 75 20 169/83 H 04/26/21 08:04 36.5 C 76 14 04/26/21 08:00 72 04/26/21 03:25 36.8 C 79 18 139/74 04/25/21 23:57 36.8 C 68 18 132/70 04/25/21 22:49 70 04/25/21 22:27 36.7 C 60 18 152/72 H 04/25/21 22:15 36.8 C 61 18 160/56 H 04/25/21 21:15 36.8 C 57 L 18 136/70 04/25/21 20:15 36.8 C 79 18 148/76 H 04/25/21 20:00 36.8 C 74 18 136/70 04/25/21 19:45 36.5 C 74 18 147/72 H 04/25/21 19:06 36.5 C 82 16 153/85 H 04/25/21 18:33 88 14 157/73 H 04/25/21 18:22 36.7 C 88 12 157/73 H 04/25/21 18:06 36.7 C 83 12 153/77 H 04/25/21 17:45 36.8 C 83 16 142/68 H 04/25/21 17:36 36.7 C 87 18 139/77 04/25/21 17:31 87 13 04/25/21 17:30 87 18 139/77 04/25/21 17:15 36.9 C 89 15 148/63 H 04/25/21 17:05 36.7 C 92 H 19 181/93 H 04/25/21 17:01 93 H 21 04/25/21 17:00 92 H 19 181/93 H 04/25/21 16:31 89 23 04/25/21 16:30 89 13 152/70 H 04/25/21 16:15 92 H 20 152/63 H 04/25/21 16:01 89 20 04/25/21 16:00 90 17 152/63 H 04/25/21 15:43 90 15 04/25/21 15:35 91 H 16 137/68 04/25/21 14:43 36.8 C 103 H 18 134/54 L BP Pulse Ox Pulse Ox 04/26/21 10:10 96 04/26/21 09:14 98 04/26/21 08:04 146/71 H 96 04/26/21 08:00 97 04/26/21 03:25 97 04/25/21 23:57 98 04/25/21 22:49 04/25/21 22:27 99 04/25/21 22:15 100 04/25/21 21:15 100 04/25/21 20:15 100 04/25/21 20:00 100 04/25/21 19:45 100 04/25/21 19:06 98 04/25/21 18:33 100 04/25/21 18:22 04/25/21 18:06 100 04/25/21 17:45 100 04/25/21 17:36 100 04/25/21 17:31 100 04/25/21 17:30 100 04/25/21 17:15 99 04/25/21 17:05 100 04/25/21 17:01 100 04/25/21 17:00 100 04/25/21 16:31 100 04/25/21 16:30 100 04/25/21 16:15 100 04/25/21 16:01 100 04/25/21 16:00 100 04/25/21 15:43 99 04/25/21 15:35 100 04/25/21 14:43 98 Transfer of Care Handoff Completed per policy Notes Mental Status: alert / awake / arousable and participated in evaluation Patient Amnestic to Procedure: Yes Nausea / Vomiting: adequately controlled Pain: adequately controlled Airway Patency, RR, SpO2: stable & adequate BP & HR: stable & adequate Hydration State: stable & adequate Anesthetic Complications: no major complications apparent and Pt Satisfied with anesthetic care
[2021-04-26] MEDS: CHOLECALCIFEROL 1,000 UNITS 25 MCG TAB PO SCH (11:15)
[2021-04-26] MEDS: FAMOTIDINE 20 MG in SYRINGE 3 ML IV SCH ×2 (11:15→20:49)
[2021-04-26] MEDS: CEROVITE ADV FORMULA TAB PO SCH (11:15)
[2021-04-26] MEDS: lisinopril 20 MG TAB PO SCH (11:16)
[2021-04-26] MEDS: INSULIN GLARGINE SOLOSTAR 100 UNITS/ML 3 ML PEN SQ SCH (11:22)
[2021-04-26 12:23] LABS: Hematocrit (blood only) 29.2 % (42-52); Hemoglobin 9.9 g/dL (14.0-18.0)
--- NOTE | 2021-04-26 12:54 | Anesthesiology Consultation ---
Date of Service April 26, 2021 Assessment & Plan Chart Review Chart Review: Acceptable Risk for Surgery, Patient NOT seen in Pre Admission Testing and order entry initiated Consults Requested none History Surgery Operation Date: 04/26/21 16:30 Proposed Procedures p Esophagogastroduodenoscopy Dr. Vega Ferrari MD Operation Date: 04/27/21 16:30 Proposed Procedures p Colonoscopy Dr. Vega Ferrari MD Height/Weight Height: 5 ft 9 in Weight: 79.7 kg Allergies Allergy/AdvReac Type Severity Reaction Status Date / Time No Known Allergies Allergy Verified 04/25/21 15:59 Medications Home Medications Medication Instructions Recorded Confirmed Last Taken Lantus Solostar U-100 Insulin 32 unit SUBCUT QAM 04/14/19 04/25/21 09/22/20 atorvastatin 40 mg PO QAM 04/14/19 04/25/21 09/22/20 cholecalciferol (vitamin D3) 1,000 unit PO QAM 04/14/19 04/25/21 09/22/20 [Vitamin D3] fluticasone propionate [Flonase 2 spray INTRANASAL DAILY 04/14/19 04/25/21 09/22/20 Allergy Relief] aspirin [Aspirin Low Dose] 81 mg PO QAM 09/22/20 04/25/21 09/22/20 diclofenac sodium 2 g TOPICAL BID PRN 09/22/20 04/25/21 Unknown metformin 500 mg PO QAM 09/22/20 04/25/21 09/22/20 acetaminophen [Tylenol] 325 mg PO Q6 PRN 04/25/21 04/25/21 Unknown lisinopril 20 mg PO DAILY 04/25/21 04/25/21 Unknown multivitamin with minerals 1 tab PO DAILY 04/25/21 04/25/21 Unknown [Multiple Vitamin-Minerals] pantoprazole 40 mg PO BID 04/25/21 04/25/21 Unknown Active Medications Generic Name Dose Route Start Last Admin Trade Name Freq PRN Reason Stop Dose Admin Famotidine 20 mg/ Syringe 5 mls @ 2.5 mls/min 04/25/21 21:00 04/26/21 11:15 IV 05/25/21 20:59 2.5 mls/min BID DALILA Administration Insulin Aspart 0 units 04/25/21 18:21 04/26/21 11:22 Insulin Aspart 100 Units/Ml 3 Ml Pen SC 05/25/21 18:20 Not Given ACHS DALILA Insulin Glargine 16 units 04/26/21 09:00 04/26/21 11:22 Insulin Glargine Solostar 100 Units/Ml 3 Ml Pen SQ 05/26/21 08:59 Not Given QAM DALILA Lisinopril 20 mg 04/26/21 09:00 04/26/21 11:16 Lisinopril 20 Mg Tab PO 05/26/21 08:59 20 mg DAILY DALILA Administration Multivitamins/Minerals 1 tab 04/26/21 09:00 04/26/21 11:15 Cerovite Adv Formula Tab PO 05/26/21 08:59 1 tab DAILY DALILA Administration Vitamin D 1,000 units 04/26/21 09:00 04/26/21 11:15 Cholecalciferol 1,000 Units 25 Mcg Tab PO 05/26/21 08:59 1,000 units QAM DALILA Administration NPO Date Last Intake of Fluids: 04/25/21 Time Last Intake of Fluids: 23:00 Date Last Intake of Solids: 04/24/21 Time Last Intake of Solids: 20:00 Past Medical History Medical History Acute GI bleeding Anemia CKD (chronic kidney disease), stage III Colon cancer Colon cancer S/P BOWEL RESECTION June. Diabetes mellitus, type 2 Diabetes mellitus, type II HLD (hyperlipidemia) HTN (hypertension) Hyperlipidemia Hypertension Exercise / Class Metabolic Activity II 4-5 Yardwork/Stairs/Walk up hill Past Family History Family History Other Heart disease Past Surgical History Surgical History H/O umbilical hernia repair History of bowel resection JUNE 05 2018 History of cataract extraction with lens replacement B/L History of colonoscopy History of herniorrhaphy UMBILICAL HERNIA S/P right hemicolectomy Past Anesthesia History No Hx of Anesthesia Complications and No Family Hx of Anesthesia Complications History of PONV No Hx of PONV and No Hx of Motion Sickness Social History Smoking Status: Former smoker Smoking cigarettes per day: 0 Hx Alcohol Use: No Hx Substance Use: No substance use type: does not use Physical Exam Vital Signs Last Vital Signs Temp 36.8 C 04/26/21 11:35 Pulse 71 04/26/21 11:35 Resp 16 04/26/21 11:35 BP 157/83 H 04/26/21 11:35 Pulse Ox 100 04/26/21 11:35 Testing Laboratory Results 04/26/21 12:04 04/25/21 15:24 PT 10.9 Seconds (9.0-12.0) 04/25/21 15: INR 1.1 (0.9-1.1) 04/25/21 15: APTT 21.1 Seconds (21.0-31.0) 04/25/21 15:24 Hemoglobin A1c 6.3 % (4.5-5.6) H 04/26/21 05: Urine Color Yellow 04/25/21 16:40 Urine Appearance Clear (Clear) 04/25/21 16:40 Urine pH 5.0 (4.5-7.5) 04/25/21 16:40 Ur Specific [place] 1.015 (1.000-1.030) 04/25/21 16:40 Urine Protein Negative (Negative) 04/25/21 16:40 Urine Glucose (UA) Negative (Negative) 04/25/21 16:40 Urine Ketones Negative (Negative) 04/25/21 16:40 Urine Nitrite Negative (Negative) 04/25/21 16:40 Ur Leukocyte Esterase Negative (Negative) 04/25/21 16:40 Blood Type O Positive 04/25/21 15:24 Antibody Screen NEGATIVE 04/25/21 15:24 04/26/21 04/26/21 11:07 07:31 POC Glucose 73 77
[2021-04-26] MEDS ORDERED: POLYETHYLENE (MIRALAX) 17 GM PACK PO SCH (17:00)
[2021-04-26 21:22] LABS: Hematocrit (blood only) 31.6 % (42-52); Hemoglobin 10.6 g/dL (14.0-18.0)
[2021-04-27 04:55] LABS: Hemoglobin 9.9 g/dL (14.0-18.0); Mean Corpuscular Hemoglobin 30.7 pg (25-34); Mean Corpuscular Hgb Conc 34.1 g/dL (32-36); Mean Corpuscular Volume 90.1 fL (80-100); Platelet Count 194 K/uL (130-400); RDW Coefficient of Variation 16.7 % (11.5-14.5); RDW Standard Deviation 55.2 fL (36.4-46.3); Red Blood Count 3.22 M/uL (4.7-6.1); White Blood Count 8.55 K/uL (4.8-10.8)
[2021-04-27 05:06] LABS: BUN Creatinine Ratio 20.1 (10-20); Calcium 8.7 mg/dl (8.5-10.1); Est GFR (African American) 59.2 ml/min; Est GFR (Non-African American) 51.1 ml/min; Potassium 4.9 mmol/L (3.5-5.1)
[2021-04-27] MEDS: CEROVITE ADV FORMULA TAB PO SCH (07:13)
[2021-04-27] MEDS: CHOLECALCIFEROL 1,000 UNITS 25 MCG TAB PO SCH (07:13)
[2021-04-27] MEDS: INSULIN ASPART 100 UNITS/ML 3 ML PEN SC SCH ×2 (07:38→12:23)
[2021-04-27] MEDS: FAMOTIDINE 20 MG in SYRINGE 3 ML IV SCH (07:40)
[2021-04-27] MEDS: INSULIN GLARGINE SOLOSTAR 100 UNITS/ML 3 ML PEN SQ SCH (07:50)
--- NOTE | 2021-04-27 08:31 | Gastroenterology Progress Note ---
Date of Service April 27, 2021 Assessment & Plan Admission and Anticipated Discharge Date Admission Date: April 25, 2021 Supervising Physician Co-Signing Physician Notes Colonoscopy for evaluation of melena/hematochezia per report prior to admission. Subjective No reports of further bleeding. Underwent egd yesterday without signs of active gi bleeding. Drank a prep over nite. No acute complaints this am - no further bleeding reported. Review of Systems Review of Systems: All systems reviewed & are unremarkable except as noted in HPI & below Physical Exam Physical Exam: Well nourished male in nad Constitutional: WD/WN, vitals as above well developed and well nourished; no acute distress Eyes: PERRL, conjunctivae normal, anicteric sclerae Respiratory: normal respiratory effort, lungs clear to auscultation Gastrointestinal (Abdomen): normal bowel sounds, soft, nontender, no hepatosplenomegaly Skin: no rashes, warm and dry Neurologic: patellar DTR's 2+ bilat, sensation intact Results & Data ([facility]) Vital Signs (Past 12 Hours) Vital Signs Temp Pulse Pulse Resp BP BP Pulse Ox 04/27/21 07:59 36.7 C 88 20 137/73 97 04/27/21 07:00 63 04/27/21 03:25 36.6 C 76 18 136/73 97 04/26/21 23:28 36.5 C 96 H 20 161/77 H 99 04/26/21 22:20 74 Labs reviewed - hgb fluctuation but remains stable since initial transfusion
--- NOTE | 2021-04-27 10:47 | History & Physical Bridge Note ---
Date of Service April 27, 2021 History & Physical Bridge Note I have examined the patient, reviewed the History & Physical and in the interval since the performance of the History & Physical I have noted the following changes of clinical significance: no changes noted
--- NOTE | 2021-04-27 10:56 | Hospitalist Progress Note ---
Date of Service April 27, 2021 Assessment & Plan (1) Acute GI bleeding: -Hgb 7.7 on admission, previously was 11 on in Nov. Type and cross, blood consented. Transfuse 1 U - tachycardic, but otherwise hemodynamically stable. Hb 9.1 today -GI, EGD yesterday 04/26, colonoscopy today, NPO, clears after scope -IV famotidine BID while inpatient, hold p.o. pantoprazole -Hold baby aspirin (2) Colon cancer: -History of such in 2017, last EGD and colonoscopy were in September 2020 -EGD was noted to have mild diffuse inflammation in the entire stomach. Nonbleeding diverticulum found in the area of the papilla, second and third portion of duodenum were normal. -Colonoscopy reviewed showing nonthrombosed external hemorrhoid, prior end-to-side ileocolonic anastomosis in the transverse colon. Moderate internal hemorrhoids. (3) S/P right hemicolectomy: -hx of such in 2018 as above (4) Anemia: -Hgb 7.7, likely secondary to acute GI blood loss -Follow H&H (5) Hyperlipidemia: - Cont atorvastatin (6) HTN (hypertension): -Lisinopril 20 mg daily - missed this mornings dose for anticipated EGD, will give dose now and then resume with morning meds. (7) Diabetes mellitus, type II: -Hold metformin -Last A1c was 6.8, recheck with a.m. labs -ISS with Accu-Cheks ACHS -Lantus reduced in half to 16 U tomorrow am since NPO after midnight. Resume 32 QAM once ordered a diet. (8) CKD (chronic kidney disease), stage III: -History of such -BUN 46, CR 1.72, follow with a.m. labs -Continue lisinopril as above DVT PPx: - teds, scds, no anticoagulation secondary to GI bleed CODE: DNR/DNI Dispo: From home, likely DC 1-2 days. ROS-No Headache, No Visual Changes, No Nausea, No Vomiting, No Fever, No Chills, No Neck Pain or Stiffness, No Chest Pain, No Palpitations, No SOB, No CONTRERAS, No Cough, No Sputum, No Wheezing, No Abdominal Pain, No Diarrhea, No Hematemesis, No Hemoptysis, No Unexpected Weight Loss, No Flank pain, No Melena, No Hematochezia, No Frequency, No Urgency, No Burning, No Hematuria, No Rashes, No Diaphoresis. Appetite is Normal Physical Exam Gen-AAO x 3, NAD, Afebrile, Pale Head-NCAT, EOMI, PERRLA, Anicteric Sclera, No Posterior Pharyngeal Erythema Neck-Supple, No JVD, No Thyromegaly, No Masses, No LAD, No Bruits Lungs-Clear to Auscultation Bilaterally, No Rales, No Rhonchi, No Wheezing, No Crepitus Chest-No S4, +S1, +S2, No S3, No Murmurs, No Rubs, No Gallops, No Ectopy Abdomen-Soft, Bowel Sounds Present, Non Tender, Non Distended, No Hepatomegaly, No Splenomegaly, No Palpable Masses, No Rebound, No Rigidity, No Guarding Musculoskeletal-Full Range of Motion Bilaterally, No CVAT Extremities-No Cyanosis, No Clubbing, No Edema Nuero-Cranial Nerves II-XII grossly intact, Motor WNL, DTRs WNL, Strength WNL, Non Focal Psych-Normal Mood Admission and Anticipated Discharge Date Admission Date: April 25, 2021 Results & Data Results & Data ([facility]) Vital Signs (Past 12 Hours) Vital Signs Temp Pulse Pulse Resp BP BP Pulse Ox 04/27/21 10:16 36.5 C 93 H 159/74 H 100 04/27/21 07:59 36.7 C 88 20 137/73 97 04/27/21 07:00 63 04/27/21 03:25 36.6 C 76 18 136/73 97 04/26/21 23:28 36.5 C 96 H 20 161/77 H 99
--- NOTE | 2021-04-27 11:15 | GI REPORT ---
Patient Name: Gopi Irvin Procedure Date: 04/27/2021 10:53 AM Date of : 1935 Admit Type: Inpatient Age: 85 Gender: Male Attending MD: Nolvia Ferrari M.d. Procedure: Colonoscopy Providers: Nolvia Ferrari M.d. Referring MD: Vimal Ley Indications: Hematochezia Medicines: Propofol per Anesthesia, Lidocaine Complications: No immediate complications. Estimated Blood Loss: Estimated blood loss: none. Procedure: Pre-Anesthesia Assessment: - Patient identification and proposed procedure were verified prior to the procedure by the physician, the nurse and the anesthesiologist. The procedure was verified in the pre-procedure area. - Prior to the procedure, a History and Physical was performed, and patient medications, allergies and sensitivities were reviewed. The patient's tolerance of previous anesthesia was reviewed. - The risks and benefits of the procedure and the sedation options and risks were discussed with the patient. All questions were answered and informed consent was obtained. After I obtained informed consent, the scope was passed under direct vision. Throughout the procedure, the patient's blood pressure, pulse, and oxygen saturations were monitored continuously. The Scope was introduced through the anus and advanced to the ileocolonic anastomosis. The colonoscopy was performed without difficulty. The patient tolerated the procedure well. The quality of the bowel preparation was adequate to identify polyps 6 mm and larger in size. Findings: There was evidence of a ileo-colonic anastomosis transverse colon. This was characterized by healthy appearing mucosa. The examined colon otherwise appeared normal- scattered left sided diverticulosis. Small internal hemorrhoids were found during retroflexion. Impression: - Ileo-colonic anastomosis, characterized by healthy appearing mucosa. - The examined colon appeared normal - scattered left sided diverticulosis. - Small internal hemorrhoids. Recommendation: - Return the floor. Citlali Jean M.d. 04/27/2021 11:15:16 AM This report has been signed electronically. Note Initiated On: 04/27/2021 10:53 AM Number of Addenda: 0 I attest to the content of the Intraoperative Record and orders documented therein, exceptions below {[id number]}
[2021-04-27] MEDS: lisinopril 20 MG TAB PO SCH (12:06)
[2021-04-27 12:58] LABS: Hematocrit (blood only) 32.5 % (42-52)
--- NOTE | 2021-04-27 13:39 | Discharge Summary ---
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 Patient was scheduled to have EGD by Dr. Carrion this morning as an outpatient at [facility], however upon discovery of continued dark tarry bowel movements and blood it was thought that the procedure should be canceled and patient was referred to the ER for further work-up. Patient reports that he had 9 days of diarrhea followed by 3 days of dark tarry bowel movements and maroon-colored stools. He denies abdominal pain, nausea, vomiting, lightheadedness or dizziness. Denies any changes in appetite or diet. He did feel that he was more pale this morning. Patient lives at home with his . Denies any recent falls but does use a cane for balance. Admission Exam Per Admitting Provider General: awake, alert, no apparent distress, + pallor Head: Normocephalic, atraumatic ENT: PERRL, EOMI, no pharyngeal exudate, mucous membranes moist Chest: Clear to auscultation, on room air, no adventitious breath sounds Cardiac: Regular rate and rhythm, tachycardic with heart rate in the mid 90s, no murmur, no JVD, normal peripheral pulses, good capillary refill Abdominal: NABS x 4 quadrants, soft, nondistended, nontender to palpation, no rebound or guarding Extremities: Normal inspection, no peripheral edema or erythema, calfs nontender to palpation Back: Normal ROM, previous left upper back scar from cyst removal. Psych: Normal mood and affect Neuro: AAO x 3, strength intact bilaterally and rated 5/5, no motor deficits, speech is clear, no peripheral sensory deficits Principal Diagnosis (1) Acute GI bleeding: (2) Colon cancer: (3) S/P right hemicolectomy: (4) Anemia: Acute GI Blood Loss (5) Hyperlipidemia: (6) HTN (hypertension): (7) Diabetes mellitus, type II: (8) CKD (chronic kidney disease), stage III: Discharge Exam See below Discharge Data Allergies Allergy/AdvReac Type Severity Reaction Status Date / Time No Known Allergies Allergy Verified 04/25/21 15:59 Consultations 04/25/21 16:09 ED Decision to Admit Stat 04/25/21 18:21 Consult Gastroenterology Routine Procedures Performed Operation Date: 04/26/21 16:30 Actual Procedures p EGD Biopsy Cytology - Nolvia Ferrari MD - Normal esophagus. - Z-line regular. - Normal stomach. - Erythematous mucosa in the antrum. Biopsied. - A single duodenal polyp - biopsied before with findings consistent with duodenitis. - Normal duodenal bulb and second portion of the duodenum. Operation Date: 04/27/21 16:30 Actual Procedures p Colonoscopy - Nolvia Ferrari MD Impression: - Ileo-colonic anastomosis, characterized by healthy appearing mucosa. - The examined colon appeared normal - scattered left sided diverticulosis. - Small internal hemorrhoids. Current Diagnoses Malignant neoplasm of colon, unspecified (04/25/21) Anemia, unspecified (04/25/21) Type 2 diabetes mellitus without complications (04/25/21) Hyperlipidemia, unspecified (04/25/21) Essential (primary) hypertension (04/25/21) Gastrointestinal hemorrhage, unspecified (04/25/21) Chronic kidney disease, stage 3 unspecified (04/25/21) Encounter for other preprocedural examination (04/25/21) Acquired absence of other specified parts of digestive tract (04/25/21) Allergies No Known Allergies Allergy (Verified 04/25/21 15:59) Height/Weight/Isolation Height 5 ft 9 in Weight 77.9 kg Chemistry 04/25/21 04/27/21 15:24 04:10 Sodium 144 139 Potassium 5.2 H 4.9 Chloride 119 H 113 H Carbon Dioxide 20 L 21 Anion Gap 4.0 5.0 BUN 46 H 26 H Creatinine 1.72 H 1.28 D Glucose 89 100 H Urinalysis 04/25/21 16:40 Urine Color Yellow Urine Appearance Clear Urine pH 5.0 Ur Specific [place] 1.015 Urine Protein Negative Urine Glucose (UA) Negative Urine Ketones Negative Urine Blood Negative Urine Nitrite Negative Urine Bilirubin Negative Hospital Course (1) Acute GI bleeding: -Hgb 7.7 on admission, previously was 11 on in Nov. Type and cross, blood consented. Transfused 1 U - tachycardic, but otherwise hemodynamically stable. Hb 11 today -GI, EGD yesterday 04/26, colonoscopy today, results above, DC home, p.o. pantoprazole, resume ASA Saturday (2) Colon cancer: -History of such in 2018, last EGD and colonoscopy were in September 2020 -EGD was noted to have mild diffuse inflammation in the entire stomach. Nonbleeding diverticulum found in the area of the papilla, second and third portion of duodenum were normal. -Colonoscopy reviewed showing nonthrombosed external hemorrhoid, prior end-to-side ileocolonic anastomosis in the transverse colon. Moderate internal hemorrhoids. (3) S/P right hemicolectomy: -hx of such in 2018 as above (4) Anemia: -Hgb 7.7, likely secondary to acute GI blood loss (5) Hyperlipidemia: - Cont atorvastatin (6) HTN (hypertension): -Lisinopril 20 mg daily - missed this mornings dose for anticipated EGD, will give dose now and then resume with morning meds. (7) Diabetes mellitus, type II: Resume home regimen (8) CKD (chronic kidney disease), stage III: -History of such -BUN 46, CR 1.72, follow with a.m. labs -Continue lisinopril as above CODE: DNR/DNI Dispo: DC home ROS-No Headache, No Visual Changes, No Nausea, No Vomiting, No Fever, No Chills, No Neck Pain or Stiffness, No Chest Pain, No Palpitations, No SOB, No CONTRERAS, No Cough, No Sputum, No Wheezing, No Abdominal Pain, No Diarrhea, No Hematemesis, No Hemoptysis, No Unexpected Weight Loss, No Flank pain, No Melena, No Hematochezia, No Frequency, No Urgency, No Burning, No Hematuria, No Rashes, No Diaphoresis. Appetite is Normal Physical Exam Gen-AAO x 3, NAD, Afebrile, better color Head-NCAT, EOMI, PERRLA, Anicteric Sclera, No Posterior Pharyngeal Erythema Neck-Supple, No JVD, No Thyromegaly, No Masses, No LAD, No Bruits Lungs-Clear to Auscultation Bilaterally, No Rales, No Rhonchi, No Wheezing, No Crepitus Chest-No S4, +S1, +S2, No S3, No Murmurs, No Rubs, No Gallops, No Ectopy Abdomen-Soft, Bowel Sounds Present, Non Tender, Non Distended, No Hepatomegaly, No Splenomegaly, No Palpable Masses, No Rebound, No Rigidity, No Guarding Musculoskeletal-Full Range of Motion Bilaterally, No CVAT Extremities-No Cyanosis, No Clubbing, No Edema Nuero-Cranial Nerves II-XII grossly intact, Motor WNL, DTRs WNL, Strength WNL, Non Focal Psych-Normal Mood Total Time Total Time Spent Total Time Spent (In Minutes): 45 mins Total Time Includes: Examination of the Patient, Discharge Planning, Medication Reconciliation and Communication With Other Providers Discharge Plan Discharge Items Patient Disposition: Home - Self-Care Reason For Visit: GIB, ANEMIA Discharge Diagnosis: (1) Acute GI bleeding: (2) Colon cancer: (3) S/P right hemicolectomy: (4) Anemia: Acute GI Blood Loss (5) Hyperlipidemia: (6) HTN (hypertension): (7) Diabetes mellitus, type II: (8) CKD (chronic kidney disease), stage III: Condition on Discharge: Good Health Concerns: Rebleeding Activity: Resume your previous activity Lifting: Gradually increase as tolerated Bathing: No limitations Sexual Activity: When tolerated Driving/Machine Use: No limitations Weightbearing: Full weightbearing Non-emergency contact: Primary Care Provider and Plating Machine Operator Call non-emergency contact if: you have any medication questions Follow-up/Referrals: Vimal Ley MD [Primary Care Provider] - Nolvia Ferrari MD [Hospitalist] - (1-2 weeks for biopsy results) Diet: Carb Consistent or DM2 and Heart Healthy Addtl Attending Provider Instructions: Resume Aspirin on May 01 Pending Studies at Discharge: No Stand-Alone Forms: My [employer], Smoking Cessation Medications and DC Order Prescriptions: Continued atorvastatin 40 mg Tablet 40 mg PO QAM RF: 0 fluticasone propionate [Flonase Allergy Relief] 50 mcg/actuation [place],Suspension 2 spray INTRANASAL DAILY RF: 0 cholecalciferol (vitamin D3) [Vitamin D3] 1,000 unit Capsule 1,000 unit PO QAM RF: 0 Lantus Solostar U-100 Insulin 100 unit/mL (3 mL) Insulin Pen 32 unit SUBCUT QAM RF: 0 aspirin [Aspirin Low Dose] 81 mg Tablet,Delayed Release (Dr/Ec) 81 mg PO QAM RF: 0 metformin 500 mg tablet extended release 24 hr 500 mg PO QAM RF: 0 diclofenac sodium 1 % gel 2 g TOPICAL BID PRN (Reason: Knee Pain) RF: 0 lisinopril 20 mg tablet 20 mg PO DAILY RF: 0 pantoprazole 40 mg tablet,delayed release (DR/EC) 40 mg PO BID RF: 0 acetaminophen [Tylenol] 325 mg Tablet 325 mg PO Q6 PRN (Reason: Fever Or Pain) RF: 0 multivitamin with minerals [Multiple Vitamin-Minerals] Tablet 1 tab PO DAILY RF: 0 Discharge Orders: Discharge Order (Routine); Ordered 04/27/21 Ordered By: Hakeem Perez/Other Patient Handouts: Managing Type 2 Diabetes, A1C Admission Data Admit Date/Time: 04/25/21 16:19 Attending Provider: Hakeem Nathan Admit Provider: Hakeem Nathan Primary Care Provider: Vimal Ley Other Providers: Hakeem Nathan ; Nolvia Ferrari Other Interventions: Discharge Summary Assessment (RN) Last Done: 04/27/21 11:34
== END 2021-04-27 15:14 | disposition home or self-care (01) | DRG 378 ==
LOC: ED 14:36 → 2E 16:19

== ENCOUNTER 2023-06-02 20:10 | Inpatient (IN) ==
[2023-06-02] MEDS ORDERED: SODIUM CHLORIDE 0.9% 1000ML 1,000 ML IV STA (20:23)
[2023-06-02] MEDS ORDERED: ONDANSETRON INJ 2 MG/ML 2 ML VIAL IV STA (20:23)
--- NOTE | 2023-06-02 20:34 | Emergency Department Note ---
Impression & Plan Acute pancreatitis, Abdominal pain, Cholelithiasis, Abnormal LFTs ED Provider Note NAME: TEAGAN SALAS AGE: 87 SEX: M : 1935 ARRIVES VIA: Walk-In INFORMANT: Patient, ED PROVIDER(S): Rustam Mckenna DO CHIEF COMPLAINT: Abdominal pain HPI: The patient is an 87-year-old male who presented to the emergency department for an evaluation of abdominal pain nausea and vomiting. The patient started having pain over the course last 24 hours. Pain significantly worsened and this is why he presented to the emergency department this evening. He denies having any rectal bleeding. He does note some abdominal distention. He denies having any chest pain or fever. He denies having any black or tarry stools. The patient states that he has a history of bowel cancer as well as colon cancer. He has had a bowel obstruction before but not for many years. ROS: See above HPI for pertinent positives & negatives. A total of 10 systems reviewed and were otherwise negative. PAST MEDICAL HISTORY: See Below PAST SURGICAL HISTORY: See Below FAMILY HISTORY: See Below SOCIAL HISTORY: See Below HOME MEDICATIONS: See Below ALLERGIES: See Below VITALS: See Below PHYSICAL EXAMINATION: GENERAL: The patient is awake and alert. The patient is very anxious appearing. EYES: The conjunctivae are clear. The pupils are round and reactive. EARS, NOSE, MOUTH AND THROAT: The nose is without any evidence of any deformity. Mucous membranes are dry. NECK: The neck is nontender and supple. RESPIRATORY: Normal respiratory effort is noted there is no evidence of wheezing rhonchi or rales CARDIOVASCULAR: Tachycardic rate with regular rhythm was noted. There is no definite murmur. GASTROINTESTINAL: The abdomen was distended and soft. There is diffuse tenderness to palpation but no guarding rigidity. MUSCULOSKELETAL/EXTREMITIES: There is no evidence of gross deformity full range of motion is noted in the hips and shoulders. SKIN: There is no obvious evidence of any rash. There are no petechiae, pallor or cyanosis noted. NEUROLOGIC: Patient is awake alert and oriented x3. MEDICAL DECISION MAKING: The patient is an 87-year-old male who presented to the emergency department for an evaluation of abdominal pain and vomiting. The patient had very significant pain my physical exam. I discussed the patient's laboratory and radiographic studies with him. He was found to have an elevation in his white blood cell count. He was found to have signs of pancreatitis on laboratory studies. Liver function studies were elevated however there was no ductal dilatation or signs of cholecystitis on CT. There were gallstones noted. I discussed the patient's condition with the on-call auto wash buffer. I also [facility] They have agreed to evaluate the patient in the emergency department for further management and disposition. Triage Nursing notes reviewed. Prior medical records reviewed Vital Signs: reviewed and remarkable for tachycardia. Differential diagnosis: Etiologies such as appendicitis, diverticulitis, obstruction, inflammatory bowel disease, renal colic, PUD, biliary pathology, pancreatitis, mesenteric ischemia, aortic pathology, infections, genitourinary, UTI, perforated viscus, as well as others were entertained. ER treatment provided: See below Diagnostics interpreted by me: ECG: EKG was obtained in the emergency department. My interpretation is sinus tachycardia at 112 bpm. There is no ectopy. There is no acute ST segment abnormalities. Incomplete right bundle branch block pattern was noted. This was compared to a tracing from April 25, 2021. No changes were noted. Cardiac Monitoring: An order was placed for continuous cardiac monitoring. The monitor shows a rate of 110 bpm with sinus tachycardia. Laboratory studies: As stated above and show below. Imaging studies: See below. Radiographic imaging was reviewed by myself Consultation(s): I discussed this case with Dr. Castro who is on-call for gastroenterology. Given the patient's laboratory findings it is possible the patient may need an ERCP if cholangitis is highly suspected. I discussed this case with Dr. Fierro who [facility]. Past Med/Surg History Medical History Acute kidney injury superimposed on chronic kidney disease CKD (chronic kidney disease), stage III Colon cancer S/P BOWEL RESECTION June. Diabetes mellitus, type II [place] (hard of hearing) HTN (hypertension) Hyperkalemia Hyperlipidemia Hypertension Surgical History H/O umbilical hernia repair History of bowel resection JUNE 05 2018 History of cataract extraction with lens replacement B/L History of colonoscopy History of herniorrhaphy UMBILICAL HERNIA S/P right hemicolectomy Family History Other Heart disease Social History Smoking Status: Former smoker Tobacco Type: Cigarettes Second Hand Exposure: No; Do You Dip or Chew Tobacco: No; Hx Alcohol Use: No Hx Substance Use: No Preferred Language: German Communication Ability: Effective Wing Commander Required: No Beliefs That Will Affect Care: None Current Living Situation: Alone Feels Safe at Home: Yes and No Is there a partner from a previous relationship who is making you feel unsafe now?: No Assistive Devices: Cane and Glasses Allergies Allergies Allergy/AdvReac Type Severity Reaction Status Date / Time No Known Allergies Allergy Verified 01/02/23 08:13 Home Meds Home Medications Medication Instructions Recorded Confirmed atorvastatin 40 mg tablet 40 mg PO QAM 04/14/19 01/02/23 cholecalciferol (vitamin D3) 25 1,000 unit PO [facility] 04/14/19 01/02/23 mcg (1,000 unit) capsule (Vitamin D3) insulin glargine 100 unit/mL (3 32 unit subcut [facility] 04/14/19 01/02/23 mL) subcutaneous pen (Lantus Solostar U-100 Insulin) diclofenac sodium 1 % topical gel 2 g topical BID PRN Knee Pain 09/22/20 01/02/23 metformin 500 mg tablet,extended 500 mg PO QAM 09/22/20 01/02/23 release 24 hr acetaminophen 325 mg tablet 325 mg PO Q6 PRN Fever Or Pain 04/25/21 01/02/23 (Tylenol) lisinopril 20 mg tablet 20 mg PO BID 04/25/21 01/02/23 multivitamin with minerals 1 tab PO DAILY 04/25/21 01/02/23 (Multiple Vitamin-Minerals tablet) pantoprazole 40 mg tablet,delayed 40 mg PO BID 04/25/21 01/02/23 release amlodipine 5 mg tablet 5 mg PO QAM 12/27/22 01/02/23 empagliflozin 10 mg tablet 10 mg PO QAM 12/27/22 01/02/23 (Jardiance) gabapentin 100 mg tablet 100 mg PO HS 12/27/22 01/02/23 Results & Data (ED) Vital Signs Vital Signs - 24 hr 06/02/23 20:12 06/02/23 20:23 06/02/23 20:40 Temperature 36.9 C Temperature Source Temporal Artery Scan Pulse Rate 123 H 116 H 106 H Pulse Rhythm Regular Pulse Strength Normal Respiratory Rate 28 H Respiratory Effort / Characteristics Non-Labored Labored Respiratory Depth Normal Respiratory Pattern Tachypnea Blood Pressure 114/51 L Blood Pressure Mean 72 Blood Pressure Position Sitting Pulse Oximetry 95 95 Oxygen Delivery Method Room Air Room Air Sepsis Recent Fever Within 48 Hours No Sepsis New/Unexplained Change in Mental Status N/A Sepsis Action Taken by Nursing No Action Required 06/02/23 21:00 06/02/23 21:30 06/02/23 22:00 Temperature Temperature Source Pulse Rate 115 H 117 H 105 H Pulse Rhythm Pulse Strength Respiratory Rate 14 21 20 Respiratory Effort / Characteristics Respiratory Depth Respiratory Pattern Blood Pressure 145/114 H 140/65 128/60 Blood Pressure Mean 124 90 82 Blood Pressure Position Pulse Oximetry 96 98 96 Oxygen Delivery Method Room Air Room Air Room Air Sepsis Recent Fever Within 48 Hours Sepsis New/Unexplained Change in Mental Status Sepsis Action Taken by Nursing 06/02/23 22:30 Temperature Temperature Source Pulse Rate 110 H Pulse Rhythm Pulse Strength Respiratory Rate 22 Respiratory Effort / Characteristics Respiratory Depth Respiratory Pattern Blood Pressure 121/57 L Blood Pressure Mean 78 Blood Pressure Position Pulse Oximetry 95 Oxygen Delivery Method Room Air Sepsis Recent Fever Within 48 Hours Sepsis New/Unexplained Change in Mental Status Sepsis Action Taken by Prison Medications Current Medication List: was personally reviewed by me Laboratory Data Attestation: I reviewed the patient's lab results. 06/02/23 20:10 06/02/23 20:10 Lab Results 06/02/23 06/02/23 06/02/23 Range/Units 20:10 20:10 20:56 WBC 29.60 H (4.8-10.8) K/ul RBC 3.72 L (4.70-6.10) M/uL Hgb 9.9 L (14.0-18.0) g/dl Hct 31.4 L (42.0-52.0) % MCV 84.4 (80.0-100.0) fL MCH 26.6 (25.0-34.0) pg MCHC 31.5 L (32.0-36.0) g/dL RDW Std Deviation 51.4 H (36.4-46.3) fL RDW Coeff of [place] 16.8 H (11.5-14.5) % MPV (9.4-12.4) fL Immature Gran % (Auto) 0.5 % Neut % (Auto) 93.7 % Lymph % (Auto) 3.3 % [place] % (Auto) 2.2 % Eos % (Auto) 0.1 % Baso % (Auto) 0.2 % Neut # (Auto) 27.72 H (1.40-6.50) K/uL Lymph # (Auto) 0.99 L (1.2-3.4) K/uL [place] # (Auto) 0.64 H (0.11-0.59) K/uL Eos # (Auto) 0.02 (0-0.50) K/uL Baso # (Auto) 0.07 (0-0.2) K/uL Immature Gran # (Auto) 0.16 (0.01-0.20) K/uL Platelet Estimate Normal (Normal) Sodium 138 (136-145) mmol/L Potassium 4.4 (3.5-5.1) mmol/L Chloride 110 H (98-107) mmol/L Carbon Dioxide 14 L (21-32) mmol/L Anion Gap 14 H (3-11) BUN 46 H (6-23) mg/dl Creatinine 1.86 H (0.6-1.4) mg/dl Est Cr Clr Drug Dosing 30.9 ml/min Est GFR ( Amer) 37.1 ml/min Est GFR (Non-Af Amer) 32.0 ml/min BUN/Creatinine Ratio 24.7 H (10-20) Glucose 149 H (70-99(Fasting)) mg/dl Calcium 9.3 (8.6-10.3) mg/dl Total Bilirubin 1.7 H (0.2-1.0) mg/dl Direct Bilirubin 1.0 H (0-0.2) mg/dl AST 129 H (13-39) U/L ALT 98 H (7-52) U/L Alkaline Phosphatase 453 H (34-104) U/L Troponin I High Sens 11.6 (0-20) pg/ml Total Protein 6.9 (6.0-8.3) gm/dl Albumin 3.8 (3.4-5.0) gm/dl Globulin 3.1 (2.5-4.0) gm/dl Albumin/Globulin Ratio 1.2 (0.9-2) Lipase 1219 H (11-82) U/L SARS-CoV-2, RNA, NAAT NEGATIVE (NEGATIVE) Administered Medications Fentanyl Citrate (Fentanyl Citrate Pf 100 Mcg/2 Ml Vial) 50 mcg IV Q15M PRN PRN Reason: Pain Stop: 06/16/23 20:22 Last Admin: 06/02/23 20:38 Dose: 50 mcg Documented By: QGV Sodium Chloride (Nss 1000ml) 1,000 mls @ 999 mls/hr IV .Q1H1M ONE Stop: 06/02/23 23:24 Last Admin: 06/02/23 22:35 Dose: 999 mls/hr Documented By: DM Discontinued Medications Sodium Chloride (Nss 1000ml) 1,000 mls @ 999 mls/hr IV .Q1H1M STA Stop: 06/02/23 21:23 Last Infusion: 06/02/23 22:34 Dose: 0 mls/hr Documented By: [facility] Admin: 06/02/23 20:40 Dose: 999 mls/hr Documented By: QGV Piperacillin Sod/Tazobactam Sod (Zosyn) 4.5 gm in 120 mls @ 240 mls/hr IV NOW ONE Stop: 06/02/23 22:18 Last Infusion: 06/02/23 22:34 Dose: 0 mls/hr Documented By: [facility] Admin: 06/02/23 22:14 Dose: 240 mls/hr Documented By: [facility] Ondansetron HCl (Ondansetron Inj 2 Mg/Ml 2 Ml Vial) 4 mg IV NOW STA Stop: 06/02/23 20:24 Last Admin: 06/02/23 20:38 Dose: 4 mg Documented By: QGV Imaging Data Attestation: I personally reviewed and interpreted this imaging study as follows: My Impression: 1 view chest x-ray was obtained in the emergency department. My interpretation is no free air or definite infiltrate, final report pending. CT of the abdomen and pelvis was obtained in the emergency department. My interpretation is no free air or signs of obstruction, final report below. Radiologist's Impression: Abdomen/Pelvis CT 06/02/23 20:49 Exam(s): CT ABDOMEN + PELVIS Without Contrast EXAM: CT Abdomen and Pelvis Without Intravenous Contrast CLINICAL HISTORY: Reason for exam: vomiting. TECHNIQUE: Axial computed tomography images of the abdomen and pelvis without intravenous contrast. CTDI is 33 yo35.55 mGy and DLP is 1681.19 mGy-cm. Automated exposure control was utilized for the study. A dose lowering technique was utilized adhering to the principles of ALARA. COMPARISON: No relevant prior studies available. FINDINGS: Lung bases: Unremarkable. No mass. No consolidation. ABDOMEN: Liver: Unremarkable. Gallbladder and bile ducts: Cholelithiasis. No CT evidence of acute cholecystitis. No ductal dilation. Pancreas: Adjuvant pancreas. No ductal dilation. Spleen: Unremarkable. No splenomegaly. Adrenals: Unremarkable. No mass. Kidneys and ureters: Unremarkable. No hydronephrosis or nephrolithiasis. Stomach and bowel: Diverticulosis, without acute diverticulitis. No small bowel obstruction. Anastomotic small bowel sutures, correlate for bowel resection. PELVIS: Appendix: No findings to suggest acute appendicitis. Bladder: Decompressed urinary bladder. No stones. Reproductive: Prostate fiduciary markers. ABDOMEN and PELVIS: Intraperitoneal space: Unremarkable. No free air. No significant fluid collection. Bones/joints: Degenerative changes of the spine. No acute fracture. No dislocation. Soft tissues: Unremarkable. Vasculature: Atherosclerotic changes of the aorta. No abdominal aortic aneurysm. Lymph nodes: Unremarkable. No enlarged lymph nodes. IMPRESSION: 1. No hydronephrosis or nephrolithiasis. 2. Cholelithiasis. No CT evidence of acute cholecystitis. 3. Diverticulosis, without acute diverticulitis. No small bowel obstruction. No free air. 4. Anastomotic small bowel sutures, correlate for bowel resection. Electronically signed by: Hema Causey MD 06/02/23 22:19 PM Discharge Plan Visit Data Chief Complaint: Abdominal Pain Stated Complaint: NAUSEA,DIARREAH,SOB,ABDOMINAL PAIN ED Provider: Rustam Mckenna Discharge Problem: Acute pancreatitis, Abdominal pain, Cholelithiasis, Abnormal LFTs Patient Disposition: Being Evaluated by Hospitalist Forms Stand Alone Forms: [facility] Prescriptions Prescriptions: No Action atorvastatin 40 mg Tablet 40 mg PO QAM cholecalciferol (vitamin D3) [Vitamin D3] 1,000 unit Capsule 1,000 unit PO QAM insulin glargine [Lantus Solostar U-100 Insulin] 100 unit/mL (3 mL) Insulin Pen 32 unit SUBCUT QAM metformin 500 mg tablet extended release 24 hr 500 mg PO QAM diclofenac sodium 1 % gel 2 g TOPICAL BID PRN (Reason: Knee Pain) amlodipine 5 mg Tablet 5 mg PO QAM gabapentin 100 mg Tablet 100 mg PO HS Jardiance 10 mg Tablet 10 mg PO QAM lisinopril 20 mg tablet 20 mg PO BID pantoprazole 40 mg tablet,delayed release (DR/EC) 40 mg PO BID acetaminophen [Tylenol] 325 mg Tablet 325 mg PO Q6 PRN (Reason: Fever Or Pain) Multiple Vitamin-Minerals Tablet 1 tab PO DAILY Referrals Referrals: Vimal Ley MD [Primary Care Provider] -
[2023-06-02] MEDS: fentaNYL citrate PF 100 MCG/2 ML VIAL IV PRN ×2 (20:38→22:57)
[2023-06-02 21:17] LABS: BUN Creatinine Ratio 24.7 (10-20); Calcium 9.3 mg/dl (8.6-10.3); Creatinine Clr Calc Pharmacy 30.9 ml/min; Est GFR (African American) 37.1 ml/min; Potassium 4.4 mmol/L (3.5-5.1)
[2023-06-02 21:24] LABS: Troponin I High Sensitivity 11.6 pg/ml (0-20)
[2023-06-02] MEDS ORDERED: PIPERACILLIN/TAZOBACTAM 4.5 GM/120 ML BAG IV ONE (21:49)
[2023-06-02 21:51] LABS: Basophils # (auto) 0.07 K/uL (0-0.2); Basophils % (auto) 0.2 %; Eosinophils # (auto) 0.02 K/uL (0-0.50); Eosinophils % (auto) 0.1 %; Hematocrit (blood only) 31.4 % (42.0-52.0); Hemoglobin 9.9 g/dl (14.0-18.0); Immature Granulocytes # (auto) 0.16 K/uL (0.01-0.20); Immature Granulocytes % (auto) 0.5 %; Lymphocytes # (auto) 0.99 K/uL (1.2-3.4); Lymphocytes % (auto) 3.3 %; Mean Corpuscular Hemoglobin 26.6 pg (25.0-34.0); Mean Corpuscular Hgb Conc 31.5 g/dL (32.0-36.0); Mean Corpuscular Volume 84.4 fL (80.0-100.0); Monocytes # (auto) 0.64 K/uL (0.11-0.59); Monocytes % (auto) 2.2 %; Neutrophils # (auto) 27.72 K/uL (1.40-6.50); Neutrophils % (auto) 93.7 %; Platelet Estimate Normal (Normal); RDW Coefficient of Variation 16.8 % (11.5-14.5); RDW Standard Deviation 51.4 fL (36.4-46.3); Red Blood Count 3.72 M/uL (4.70-6.10)
[2023-06-02 22:08] LABS: Albumin Globulin Ratio 1.2 (0.9-2); Albumin Level 3.8 gm/dl (3.4-5.0); Bilirubin,Total 1.7 mg/dl (0.2-1.0); Globulin 3.1 gm/dl (2.5-4.0); Total Protein 6.9 gm/dl (6.0-8.3)
--- NOTE | 2023-06-02 22:20 | CT Scan Report ---
Exam(s): CT ABDOMEN + PELVIS Without Contrast EXAM: CT Abdomen and Pelvis Without Intravenous Contrast CLINICAL HISTORY: Reason for exam: vomiting. TECHNIQUE: Axial computed tomography images of the abdomen and pelvis without intravenous contrast. CTDI is 33 yo35.55 mGy and DLP is 1681.19 mGy-cm. Automated exposure control was utilized for the study. A dose lowering technique was utilized adhering to the principles of ALARA. COMPARISON: No relevant prior studies available. FINDINGS: Lung bases: Unremarkable. No mass. No consolidation. ABDOMEN: Liver: Unremarkable. Gallbladder and bile ducts: Cholelithiasis. No CT evidence of acute cholecystitis. No ductal dilation. Pancreas: Adjuvant pancreas. No ductal dilation. Spleen: Unremarkable. No splenomegaly. Adrenals: Unremarkable. No mass. Kidneys and ureters: Unremarkable. No hydronephrosis or nephrolithiasis. Stomach and bowel: Diverticulosis, without acute diverticulitis. No small bowel obstruction. Anastomotic small bowel sutures, correlate for bowel resection. PELVIS: Appendix: No findings to suggest acute appendicitis. Bladder: Decompressed urinary bladder. No stones. Reproductive: Prostate fiduciary markers. ABDOMEN and PELVIS: Intraperitoneal space: Unremarkable. No free air. No significant fluid collection. Bones/joints: Degenerative changes of the spine. No acute fracture. No dislocation. Soft tissues: Unremarkable. Vasculature: Atherosclerotic changes of the aorta. No abdominal aortic aneurysm. Lymph nodes: Unremarkable. No enlarged lymph nodes. IMPRESSION: 1. No hydronephrosis or nephrolithiasis. 2. Cholelithiasis. No CT evidence of acute cholecystitis. 3. Diverticulosis, without acute diverticulitis. No small bowel obstruction. No free air. 4. Anastomotic small bowel sutures, correlate for bowel resection. Electronically signed by: Hema Causey MD 06/02/23 22:19 PM
[2023-06-02] MEDS ORDERED: SODIUM CHLORIDE 0.9% 1000ML 1,000 ML IV ONE (22:24)
[2023-06-02] MEDS ORDERED: PANTOprazole 40 MG in SYRINGE 0 ML IV ONE (22:34)
[2023-06-02] MEDS ORDERED: LACTATED RINGER'S 1,000 ML IV STA (23:13)
[2023-06-02 23:48] LABS: Base Excess VBG -9.9 mEq/L; HCO3 VBG 16 mmol/L; Oxygen Saturation VBG < 60.0 %; PCO2 VBG 35 mmHg (38-50); PO2 VBG 32 mmHg; pH VBG 7.27 (7.36-7.41)
--- NOTE | 2023-06-02 23:56 | History & Physical Report ---
Date of Service June 02, 2023 History of Present Illness Primary Care Provider: Vimal Ley MD Allergies Allergy/AdvReac Type Severity Reaction Status Date / Time No Known Allergies Allergy Verified 01/02/23 08:13 Home Medications Medication Instructions Recorded Confirmed Type atorvastatin 40 mg tablet 40 mg PO QAM 04/14/19 01/02/23 History cholecalciferol (vitamin D3) 25 1,000 unit PO QAM 04/14/19 01/02/23 History mcg (1,000 unit) capsule (Vitamin D3) insulin glargine 100 unit/mL (3 32 unit subcut QA 04/14/19 01/02/23 History mL) subcutaneous pen (Lantus Solostar U-100 Insulin) diclofenac sodium 1 % topical gel 2 g topical BID PRN Knee Pain 09/22/20 01/02/23 History metformin 500 mg tablet,extended 500 mg PO QAM 09/22/20 01/02/23 History release 24 hr acetaminophen 325 mg tablet 325 mg PO Q6 PRN Fever Or Pain 04/25/21 01/02/23 History (Tylenol) lisinopril 20 mg tablet 20 mg PO BID 04/25/21 01/02/23 History multivitamin with minerals 1 tab PO DAILY 04/25/21 01/02/23 History (Multiple Vitamin-Minerals tablet) pantoprazole 40 mg tablet,delayed 40 mg PO BID 04/25/21 01/02/23 History release amlodipine 5 mg tablet 5 mg PO QAM 12/27/22 01/02/23 History empagliflozin 10 mg tablet 10 mg PO QAM 12/27/22 01/02/23 History (Jardiance) gabapentin 100 mg tablet 100 mg PO HS 12/27/22 01/02/23 History Past Med/Surg History Medical History Acute kidney injury superimposed on chronic kidney disease CKD (chronic kidney disease), stage III Colon cancer S/P BOWEL RESECTION June. Diabetes mellitus, type II [place] (hard of hearing) HTN (hypertension) Hyperkalemia Hyperlipidemia Hypertension Surgical History H/O umbilical hernia repair History of bowel resection JUNE 05 2018 History of cataract extraction with lens replacement B/L History of colonoscopy History of herniorrhaphy UMBILICAL HERNIA S/P right hemicolectomy Family History Other Heart disease Social History Smoking Status: Former smoker Tobacco Type: Cigarettes Second Hand Exposure: No; Do You Dip or Chew Tobacco: No; Hx Alcohol Use: No Hx Substance Use: No Preferred Language: Turkish Communication Ability: Effective Charge Nurse Required: No Beliefs That Will Affect Care: None Current Living Situation: Alone Feels Safe at Home: Yes and No Is there a partner from a previous relationship who is making you feel unsafe now?: No Assistive Devices: Cane and Glasses Results & Data Results & Data Vital Signs (Past 12 Hours) Vital Signs Temp Pulse Resp BP Pulse Ox O2 Del Method 06/02/23 23:46 109 H 16 116/57 L 95 Room Air 06/02/23 23:00 94 H 17 104/49 L 94 Room Air 06/02/23 22:30 110 H 22 121/57 L 95 Room Air 06/02/23 22:00 105 H 20 128/60 96 Room Air 06/02/23 21:30 117 H 21 140/65 98 Room Air 06/02/23 21:00 115 H 14 145/114 H 96 Room Air 06/02/23 20:40 106 H 95 Room Air 06/02/23 20:23 116 H 06/02/23 20:12 36.9 C 123 H 28 H 114/51 L 95 Room Air Laboratory Results Laboratory Results WBC 29.60 K/ul (4.8-10.8) H 06/02/23 20:10 RBC 3.72 M/uL (4.70-6.10) L 06/02/23 20:10 Hgb 9.9 g/dl (14.0-18.0) L 06/02/23 20:10 Hct 31.4 % (42.0-52.0) L 06/02/23 20:10 MCV 84.4 fL (80.0-100.0) 06/02/23 20:10 MCH 26.6 pg (25.0-34.0) 06/02/23 20:10 MCHC 31.5 g/dL (32.0-36.0) L 06/02/23 20:10 RDW Std Deviation 51.4 fL (36.4-46.3) H 06/02/23 20:10 RDW Coeff of [place] 16.8 % (11.5-14.5) H 06/02/23 20:10 MPV fL (9.4-12.4) 06/02/23 20:10 Immature Gran % (Auto) 0.5 % 06/02/23 20:10 Neut % (Auto) 93.7 % 06/02/23 20:10 Lymph % (Auto) 3.3 % 06/02/23 20:10 [place] % (Auto) 2.2 % 06/02/23 20:10 Eos % (Auto) 0.1 % 06/02/23 20:10 Baso % (Auto) 0.2 % 06/02/23 20:10 Neut # (Auto) 27.72 K/uL (1.40-6.50) H 06/02/23 20:10 Lymph # (Auto) 0.99 K/uL (1.2-3.4) L 06/02/23 20:10 [place] # (Auto) 0.64 K/uL (0.11-0.59) H 06/02/23 20:10 Eos # (Auto) 0.02 K/uL (0-0.50) 06/02/23 20:10 Baso # (Auto) 0.07 K/uL (0-0.2) 06/02/23 20:10 Immature Gran # (Auto) 0.16 K/uL (0.01-0.20) 06/02/23 20:10 Platelet Estimate Normal (Normal) 06/02/23 20:10 VBG pH 7.27 (7.36-7.41) L 06/02/23 23:18 VBG pCO2 35 mmHg (38-50) L 06/02/23 23:18 VBG pO2 32 mmHg 06/02/23 23:18 VBG HCO3 16 mmol/L 06/02/23 23:18 VBG O2 Saturation < 60.0 % 06/02/23 23:18 VBG Base Excess -9.9 mEq/L 06/02/23 23:18 Sodium 138 mmol/L (136-145) 06/02/23 20:10 Potassium 4.4 mmol/L (3.5-5.1) 06/02/23 20:10 Chloride 110 mmol/L (98-107) H 06/02/23 20:10 Carbon Dioxide 14 mmol/L (21-32) L 06/02/23 20:10 Anion Gap 14 (3-11) H 06/02/23 20:10 BUN 46 mg/dl (6-23) H 06/02/23 20:10 Creatinine 1.86 mg/dl (0.6-1.4) H 06/02/23 20:10 Est Cr Clr Drug Dosing 30.9 ml/min 06/02/23 20:10 Est GFR ( Amer) 37.1 ml/min 06/02/23 20:10 Est GFR (Non-Af Amer) 32.0 ml/min 06/02/23 20:10 BUN/Creatinine Ratio 24.7 (10-20) H 06/02/23 20:10 Glucose 149 mg/dl (70-99(Fasting)) H 06/02/23 20:10 Lactate 1.8 mmol/L (0.4-2.0) 06/02/23 23:30 Calcium 9.3 mg/dl (8.6-10.3) 06/02/23 20:10 Total Bilirubin 1.7 mg/dl (0.2-1.0) H 06/02/23 20:10 Direct Bilirubin 1.0 mg/dl (0-0.2) H 06/02/23 20:10 AST 129 U/L (13-39) H 06/02/23 20:10 ALT 98 U/L (7-52) H 06/02/23 20:10 Alkaline Phosphatase 453 U/L (34-104) H 06/02/23 20:10 Troponin I High Sens 11.6 pg/ml (0-20) 06/02/23 20:10 Total Protein 6.9 gm/dl (6.0-8.3) 06/02/23 20:10 Albumin 3.8 gm/dl (3.4-5.0) 06/02/23 20:10 Globulin 3.1 gm/dl (2.5-4.0) 06/02/23 20:10 Albumin/Globulin Ratio 1.2 (0.9-2) 06/02/23 20:10 Lipase 1219 U/L (11-82) H 06/02/23 20:10 SARS-CoV-2, RNA, NAAT NEGATIVE (NEGATIVE) 06/02/23 20:56 Impressions Abdomen/Pelvis CT 06/02/23 20:49 Exam(s): CT ABDOMEN + PELVIS Without Contrast EXAM: CT Abdomen and Pelvis Without Intravenous Contrast CLINICAL HISTORY: Reason for exam: vomiting. TECHNIQUE: Axial computed tomography images of the abdomen and pelvis without intravenous contrast. CTDI is 33 yo35.55 mGy and DLP is 1681.19 mGy-cm. Automated exposure control was utilized for the study. A dose lowering technique was utilized adhering to the principles of ALARA. COMPARISON: No relevant prior studies available. FINDINGS: Lung bases: Unremarkable. No mass. No consolidation. ABDOMEN: Liver: Unremarkable. Gallbladder and bile ducts: Cholelithiasis. No CT evidence of acute cholecystitis. No ductal dilation. Pancreas: Adjuvant pancreas. No ductal dilation. Spleen: Unremarkable. No splenomegaly. Adrenals: Unremarkable. No mass. Kidneys and ureters: Unremarkable. No hydronephrosis or nephrolithiasis. Stomach and bowel: Diverticulosis, without acute diverticulitis. No small bowel obstruction. Anastomotic small bowel sutures, correlate for bowel resection. PELVIS: Appendix: No findings to suggest acute appendicitis. Bladder: Decompressed urinary bladder. No stones. Reproductive: Prostate fiduciary markers. ABDOMEN and PELVIS: Intraperitoneal space: Unremarkable. No free air. No significant fluid collection. Bones/joints: Degenerative changes of the spine. No acute fracture. No dislocation. Soft tissues: Unremarkable. Vasculature: Atherosclerotic changes of the aorta. No abdominal aortic aneurysm. Lymph nodes: Unremarkable. No enlarged lymph nodes. IMPRESSION: 1. No hydronephrosis or nephrolithiasis. 2. Cholelithiasis. No CT evidence of acute cholecystitis. 3. Diverticulosis, without acute diverticulitis. No small bowel obstruction. No free air. 4. Anastomotic small bowel sutures, correlate for bowel resection. Electronically signed by: Hema Causey MD 06/02/23 22:19 PM
[2023-06-03 00:02] LABS: Reticulocyte % 1.6 % (0.5-2.0); Reticulocytes # 0.05 10^6/uL (0.02-0.10)
[2023-06-03 00:06] LABS: Magnesium 1.7 mg/dl (1.7-2.4)
[2023-06-03 00:36] LABS: Vitamin B12 1415 pg/ml (180-914)
[2023-06-03 00:39] LABS: INR 1.1 (0.9-1.1); Prothrombin Time 12.2 Seconds (9.0-12.0)
[2023-06-03] MEDS ORDERED: PROMETHAZINE HCL 6.25 MG in SODIUM CHLORIDE 0.9% 50 ML IV PRN (00:43)
[2023-06-03] MEDS ORDERED: traMADol HCL 50 MG TABLET PO PRN (00:43)
[2023-06-03] MEDS ORDERED: HYDROmorphone INJ 0.5 MG/0.5 ML SYR IV PRN ×2 (00:43→20:13)
[2023-06-03] MEDS ORDERED: ACETAMINOPHEN 325 MG TAB PO PRN (00:43)
--- NOTE | 2023-06-03 00:45 | History & Physical Report ---
Date of Service June 03, 2023 Assessment & Plan (1) Acute pancreatitis: Plan: Gallstone pancreatitis Severe sepsis from possible cholangitis Rule out choledocholithiasis given abnormal LFTs SIRS plus ARF on CKD hypertension, stable DM2 insulin requiring, reasonable control as of recent hemoglobin A1c of 7.4 last January 2023 colon cancer status post surgery prostate cancer status post radiation chronic anemia, hemoglobin slightly lower than baseline past tobacco abuse Medical telemetry IVF, analgesia, bowel rest CS, Zosyn MRCP GI consult Re: Pancreatitis, transaminitis Further management pending work-up results Monitor creatinine response to IVF, hold lisinopril until creatinine back to baseline Anemia work-up, transfuse PRBC if hemoglobin less than 7 and or for symptomatic anemia Basal bolus insulin adjusted for n.p.o. status, ISS BG goal 1 10-1 40 DVT prophylaxis. Heparin subcu DNR as per patient's prior wishes Patient granddaughter requesting updates providers. Ms. Lakeshia Montanez, contact #[phone]. Text document was generated using powervault voice recognition software. It may contain grammatical or spelling errors. Kindly contact undersigned for clarification of any documentation item in question. History of Present Illness Chief Complaint: Abdominal pain Primary Care Provider: Vimal Ley MD History obtained from patient, family, and records. Medical history significant for hypertension, DM2 insulin requiring, colon cancer status post surgery, prostate cancer status post radiation, CRI (baseline creatinine 1.6 ), chronic anemia (baseline hemoglobin 10-11), cholelithiasis, past tobacco abuse. Last confinement April 2021 for GI bleed. Last week, patient noted tolerable intermittent epigastric discomfort. Not related to food intake. Yesterday, patient noted worsening pain with nausea, bilious emesis. No headache, no black, no bloody stools. Some chills at home. Poor appetite. Short of breath from abdominal pain. IV Zosyn administered at the ER for sepsis. Medical History as above Surgical History : Back cyst removal, cataract surgery, prostate biopsy, partial colectomy, umbilical hernia repair Family History : DM, heart disease, kidney problems Personal/Social history : Past tobacco abuse, occasional EtOH intake, retired from [employer] work Allergies Allergy/AdvReac Type Severity Reaction Status Date / Time No Known Allergies Allergy Verified 06/03/23 00:01 Home Medications Medication Instructions Recorded Confirmed Type atorvastatin 40 mg tablet 40 mg PO QAM 04/14/19 06/02/23 History cholecalciferol (vitamin D3) 25 1,000 unit PO QAM 04/14/19 06/02/23 History mcg (1,000 unit) capsule (Vitamin D3) insulin glargine 100 unit/mL (3 40 unit subcut QAM 04/14/19 06/02/23 History mL) subcutaneous pen (Lantus Solostar U-100 Insulin) diclofenac sodium 1 % topical gel 2 g topical BID PRN Knee Pain 09/22/20 06/02/23 History metformin 500 mg tablet,extended 500 mg PO QAM 09/22/20 06/02/23 History release 24 hr lisinopril 20 mg tablet 20 mg PO BID 04/25/21 06/02/23 History multivitamin with minerals 1 tab PO DAILY 04/25/21 06/02/23 History (Multiple Vitamin-Minerals tablet) pantoprazole 40 mg tablet,delayed 40 mg PO BID 04/25/21 06/02/23 History release amlodipine 5 mg tablet 5 mg PO QAM 12/27/22 06/02/23 History empagliflozin 10 mg tablet 10 mg PO QAM 12/27/22 06/02/23 History (Jardiance) acetaminophen 500 mg tablet 1,000 mg PO Q8 PRN Pain 06/02/23 06/02/23 History (Tylenol Extra Strength) bimatoprost 0.01 % eye drops 1 drp OPR HS 06/02/23 06/02/23 History (Lumigan) gabapentin 100 mg capsule 100 mg PO HS 06/02/23 06/02/23 History aspirin 81 mg tablet,delayed 81 mg PO DAILY 06/03/23 06/03/23 History release multivitamin 1 tab PO DAILY 06/03/23 06/03/23 History Past Med/Surg History Medical History Acute kidney injury superimposed on chronic kidney disease CKD (chronic kidney disease), stage III Colon cancer S/P BOWEL RESECTION June. Diabetes mellitus, type II [place] (hard of hearing) HTN (hypertension) Hyperkalemia Hyperlipidemia Hypertension Surgical History H/O umbilical hernia repair History of bowel resection JUNE 05 2018 History of cataract extraction with lens replacement B/L History of colonoscopy History of herniorrhaphy UMBILICAL HERNIA S/P right hemicolectomy Family History Other Heart disease Social History Smoking Status: Former smoker Tobacco Type: Cigarettes Second Hand Exposure: No; Do You Dip or Chew Tobacco: No; Hx Alcohol Use: Yes Alcohol type: beer Hx Substance Use: No Preferred Language: Italian Communication Ability: Effective Cigar Bander Required: No Beliefs That Will Affect Care: None Current Living Situation: Alone Other Information That Helps Us Care for You: No Feels Safe at Home: Yes Safety Concerns: Feels Safe At This Time Assistive Devices: Cane, Glasses and Hearing Aid - Bilateral Review of Systems Review of Systems: As per HPI, all other systems reviewed and negative Physical Exam Physical Exam: GENERAL: Comfortable, slightly anxious, slightly hard of hearing, no respiratory distress SKIN: Pallor, warm HEENT: Pale palpebral conjunctivae, no ptosis, dry buccal mucosa NECK : Supple, no tenderness CHEST : Decreased breath sounds, occasional expiratory wheezes, no tenderness HEART : Tachycardic, no obvious murmurs ABDOMEN: Some distention, epigastric tenderness EXTREMITIES : Minimal LE swelling, no LE tenderness, no other conspicuous deformities noted NEUROLOGIC : Coherent, no facial asymmetry, slightly hard of hearing, no other gross focality Results & Data Results & Data Vital Signs (Past 12 Hours) Vital Signs Temp Pulse Resp BP Pulse Ox O2 Del Method 06/02/23 23:46 109 H 16 116/57 L 95 Room Air 06/02/23 23:00 94 H 17 104/49 L 94 Room Air 06/02/23 22:30 110 H 22 121/57 L 95 Room Air 06/02/23 22:00 105 H 20 128/60 96 Room Air 06/02/23 21:30 117 H 21 140/65 98 Room Air 06/02/23 21:00 115 H 14 145/114 H 96 Room Air 06/02/23 20:40 106 H 95 Room Air 06/02/23 20:23 116 H 06/02/23 20:12 36.9 C 123 H 28 H 114/51 L 95 Room Air Laboratory Results Laboratory Results WBC 29.60 K/ul (4.8-10.8) H 06/02/23 20:10 RBC 3.72 M/uL (4.70-6.10) L 06/02/23 20:10 Hgb 9.9 g/dl (14.0-18.0) L 06/02/23 20:10 Hct 31.4 % (42.0-52.0) L 06/02/23 20:10 MCV 84.4 fL (80.0-100.0) 06/02/23 20:10 MCH 26.6 pg (25.0-34.0) 06/02/23 20:10 MCHC 31.5 g/dL (32.0-36.0) L 06/02/23 20:10 RDW Std Deviation 51.4 fL (36.4-46.3) H 06/02/23 20:10 RDW Coeff of Scott 16.8 % (11.5-14.5) H 06/02/23 20:10 MPV fL (9.4-12.4) 06/02/23 20:10 Immature Gran % (Auto) 0.5 % 06/02/23 20:10 Neut % (Auto) 93.7 % 06/02/23 20:10 Lymph % (Auto) 3.3 % 06/02/23 20:10 [place] % (Auto) 2.2 % 06/02/23 20:10 Eos % (Auto) 0.1 % 06/02/23 20:10 Baso % (Auto) 0.2 % 06/02/23 20:10 Reticulocyte % (Auto) 1.6 % (0.5-2.0) 06/02/23 23:18 Neut # (Auto) 27.72 K/uL (1.40-6.50) H 06/02/23 20:10 Lymph # (Auto) 0.99 K/uL (1.2-3.4) L 06/02/23 20:10 [place] # (Auto) 0.64 K/uL (0.11-0.59) H 06/02/23 20:10 Eos # (Auto) 0.02 K/uL (0-0.50) 06/02/23 20:10 Baso # (Auto) 0.07 K/uL (0-0.2) 06/02/23 20:10 Reticulocyte # 0.05 10^6/uL (0.02-0.10) 06/02/23 23:18 Immature Gran # (Auto) 0.16 K/uL (0.01-0.20) 06/02/23 20:10 Platelet Estimate Normal (Normal) 06/02/23 20:10 PT 12.2 Seconds (9.0-12.0) H 06/02/23 23:18 INR 1.1 (0.9-1.1) 06/02/23 23:18 VBG pH 7.27 (7.36-7.41) L 06/02/23 23:18 VBG pCO2 35 mmHg (38-50) L 06/02/23 23:18 VBG pO2 32 mmHg 06/02/23 23:18 VBG HCO3 16 mmol/L 06/02/23 23:18 VBG O2 Saturation < 60.0 % 06/02/23 23:18 VBG Base Excess -9.9 mEq/L 06/02/23 23:18 Sodium 138 mmol/L (136-145) 06/02/23 20:10 Potassium 4.4 mmol/L (3.5-5.1) 06/02/23 20:10 Chloride 110 mmol/L (98-107) H 06/02/23 20:10 Carbon Dioxide 14 mmol/L (21-32) L 06/02/23 20:10 Anion Gap 14 (3-11) H 06/02/23 20:10 BUN 46 mg/dl (6-23) H 06/02/23 20:10 Creatinine 1.86 mg/dl (0.6-1.4) H 06/02/23 20:10 Est Cr Clr Drug Dosing 30.9 ml/min 06/02/23 20:10 Est GFR ( Amer) 37.1 ml/min 06/02/23 20:10 Est GFR (Non-Af Amer) 32.0 ml/min 06/02/23 20:10 BUN/Creatinine Ratio 24.7 (10-20) H 06/02/23 20:10 Glucose 149 mg/dl (70-99(Fasting)) H 06/02/23 20:10 Lactate 1.8 mmol/L (0.4-2.0) 06/02/23 23:30 Calcium 9.3 mg/dl (8.6-10.3) 06/02/23 20:10 Magnesium 1.7 mg/dl (1.7-2.4) 06/02/23 20:10 Iron 34 mcg/dl (35-175) L 06/02/23 20:10 Transferrin 250 mg/dl (200-360) 06/02/23 20:10 Ferritin 42.0 ng/ml (8-388) 06/02/23 20:10 Total Bilirubin 1.7 mg/dl (0.2-1.0) H 06/02/23 20:10 Direct Bilirubin 1.0 mg/dl (0-0.2) H 06/02/23 20:10 AST 129 U/L (13-39) H 06/02/23 20:10 ALT 98 U/L (7-52) H 06/02/23 20:10 Alkaline Phosphatase 453 U/L (34-104) H 06/02/23 20:10 Troponin I High Sens 11.6 pg/ml (0-20) 06/02/23 20:10 Total Protein 6.9 gm/dl (6.0-8.3) 06/02/23 20:10 Albumin 3.8 gm/dl (3.4-5.0) 06/02/23 20:10 Globulin 3.1 gm/dl (2.5-4.0) 06/02/23 20:10 Albumin/Globulin Ratio 1.2 (0.9-2) 06/02/23 20:10 Lipase 1219 U/L (11-82) H 06/02/23 20:10 Vitamin B12 1415 pg/ml (180-914) H 06/02/23 23:18 Folate > 22.30 ng/ml (>5.38) 06/02/23 23:18 SARS-CoV-2, RNA, NAAT NEGATIVE (NEGATIVE) 06/02/23 20:56 Impressions Abdomen/Pelvis CT 06/02/23 20:49 Exam(s): CT ABDOMEN + PELVIS Without Contrast EXAM: CT Abdomen and Pelvis Without Intravenous Contrast CLINICAL HISTORY: Reason for exam: vomiting. TECHNIQUE: Axial computed tomography images of the abdomen and pelvis without intravenous contrast. CTDI is 33 yo35.55 mGy and DLP is 1681.19 mGy-cm. Automated exposure control was utilized for the study. A dose lowering technique was utilized adhering to the principles of ALARA. COMPARISON: No relevant prior studies available. FINDINGS: Lung bases: Unremarkable. No mass. No consolidation. ABDOMEN: Liver: Unremarkable. Gallbladder and bile ducts: Cholelithiasis. No CT evidence of acute cholecystitis. No ductal dilation. Pancreas: Adjuvant pancreas. No ductal dilation. Spleen: Unremarkable. No splenomegaly. Adrenals: Unremarkable. No mass. Kidneys and ureters: Unremarkable. No hydronephrosis or nephrolithiasis. Stomach and bowel: Diverticulosis, without acute diverticulitis. No small bowel obstruction. Anastomotic small bowel sutures, correlate for bowel resection. PELVIS: Appendix: No findings to suggest acute appendicitis. Bladder: Decompressed urinary bladder. No stones. Reproductive: Prostate fiduciary markers. ABDOMEN and PELVIS: Intraperitoneal space: Unremarkable. No free air. No significant fluid collection. Bones/joints: Degenerative changes of the spine. No acute fracture. No dislocation. Soft tissues: Unremarkable. Vasculature: Atherosclerotic changes of the aorta. No abdominal aortic aneurysm. Lymph nodes: Unremarkable. No enlarged lymph nodes. IMPRESSION: 1. No hydronephrosis or nephrolithiasis. 2. Cholelithiasis. No CT evidence of acute cholecystitis. 3. Diverticulosis, without acute diverticulitis. No small bowel obstruction. No free air. 4. Anastomotic small bowel sutures, correlate for bowel resection. Electronically signed by: Hema Causey MD 06/02/23 22:19 PM Diagnostic Findings Chest x-ray as per my interpretation atelectasis EKG as per my interpretation : Rate 110, sinus tachycardia, normal axis, inc omplete RBBB, 1 AVB, septal infarct Code Status & VTE Plan VTE Prophylaxis Plan VTE Prophylaxis will be ordered: Yes (1) Acute pancreatitis Acute pancreatitis complication: unspecified Pancreatitis type: unspecified pancreatitis type Qualified Code(s): K85.90 - Acute pancreatitis without necrosis or infection, unspecified
[2023-06-03] MEDS: MAGNESIUM SULFATE / D5W 1 GM/100 ML BAG IV SCH ×2 (00:53→02:50)
[2023-06-03 01:07] LABS: Appearance Urine Clear (Clear); Bilirubin Urine Negative (Negative); Blood Urine Negative (Negative); Color Urine Yellow; Glucose Urine UA 3+ (Negative); Ketones Urine Negative (Negative); Leukocyte Esterase Urine Negative (Negative); Nitrite Urine Negative (Negative); Protein Urine Negative (Negative); Specific Gravity Urine 1.014 (1.000-1.030); Urobilinogen Urine Negative (Negative)
[2023-06-03] MEDS ORDERED: GLUCOSE 10 TAB/TUBE PO PRN (02:41)
[2023-06-03] MEDS ORDERED: GLUCOSE 40% GEL 15 GM TUBE PO PRN (02:41)
[2023-06-03] MEDS ORDERED: DEXTROSE 50% 50 ML SYRINGE IV PRN (02:41)
[2023-06-03] MEDS ORDERED: GLUCAGON FOR INJ 1 MG VIAL SQ PRN (02:41)
[2023-06-03] MEDS ORDERED: CARBOHYDRATES FOR HYPOGLYCEMIA PO PRN (02:41)
[2023-06-03] MEDS ORDERED: DICLOFENAC SOD 1% GEL 100 GM TUBE EXT PRN (02:41)
[2023-06-03] MEDS ORDERED: XOPENEX/ATROVENT 1.25mg/0.5MG NEB COMBO NEB STA (03:14)
[2023-06-03] MEDS ORDERED: LEVALBUTEROL 1.25 MG/3 ML NEB NEB STA (03:17)
[2023-06-03] MEDS ORDERED: IPRATROPIUM BROMIDE NEB SOLN 0.02% 2.5 ML VIAL INH STA (03:17)
--- NOTE | 2023-06-03 03:59 | Magnetic Resonance Report ---
Exam(s): MRI MRCP EXAM: MR Abdomen Without Intravenous Contrast, MRCP Protocol CLINICAL HISTORY: Reason for exam: abn lfts. TECHNIQUE: Multiplanar magnetic resonance images of the abdomen without intravenous contrast using MRCP protocol. COMPARISON: CT scan from June to 2022 FINDINGS: Bile ducts: The common bile duct is nondilated measuring 7 mm. No choledocholithiasis is identified. Gallbladder: There are multiple calculi measuring up to 1.6 cm in the gallbladder. The gallbladder is distended with a 5-6 mm rim of pericholecystic fluid and adjacent edema characteristic of acute cholecystitis. Liver: The liver is mildly enlarged is 18.5 cm craniocaudad. No focal liver lesion is seen. Pancreas: The pancreatic duct is nondilated. Spleen: Unremarkable. No splenomegaly. Adrenals: Unremarkable. No mass. Kidneys and ureters: Mild bilateral renal atrophy with mild perinephric stranding suggesting renal insufficiency. No hydronephrosis is identified. 6 mm simple cyst in the left kidney. No follow-up is required. Stomach and bowel: Unremarkable. No obstruction. Vasculature: The portal vein is patent are nondilated measuring 12 mm. IMPRESSION: 1. There are multiple calculi measuring up to 1.6 cm in the gallbladder. The gallbladder is distended with a 5-6 mm rim of pericholecystic fluid and adjacent edema characteristic of acute cholecystitis. 2. The common bile duct is nondilated measuring 7 mm. No choledocholithiasis is identified. Electronically signed by: Ever Portillo MD 06/03/23 03:58 AM
[2023-06-03] MEDS: PIPERACILLIN/TAZOBACTAM 4.5 GM in DEXTROSE 5% 100 ML IV SCH ×3 (04:50→20:21)
[2023-06-03] MEDS: INSULIN ASPART PER UNIT CHARGE SC SCH ×3 (06:34→19:31)
[2023-06-03] MEDS: LACTATED RINGER'S 1,000 ML IV SCH ×4 (06:35→22:23)
[2023-06-03] MEDS: HEPARIN SOD 5,000 UNIT/0.5 ML VIAL SQ SCH ×3 (06:36→22:23)
--- NOTE | 2023-06-03 07:28 | XRay Report ---
XR chest 1V portable HISTORY: Generalized abdominal pain. COMPARISON: Chest 04/25/2021. FINDINGS: No pneumothorax. No pleural effusions. Left basilar linear densities favor subsegmental ate lectasis. Otherwise, the lungs are clear. The heart is normal in size. No evidence for pulmonary abrahan a. Advanced degenerative changes within the left shoulder. IMPRESSION: No acute process. ACT 112: Negative or not required by law. Electronically signed by: Leonides Meng M.D. 06/03/2023 7:27 AM
[2023-06-03 07:40] LABS: Albumin Globulin Ratio 1.3 (0.9-2); BUN Creatinine Ratio 21.4 (10-20); Bilirubin,Total 2.8 mg/dl (0.2-1.0); Calcium 8.1 mg/dl (8.6-10.3); Creatinine Clr Calc Pharmacy 33.9 ml/min; Est GFR (Non-African American) 36.2 ml/min; Globulin 2.4 gm/dl (2.5-4.0); Total Protein 5.4 gm/dl (6.0-8.3)
[2023-06-03 08:10] LABS: Hematocrit (blood only) 25.7 % (42.0-52.0); Hemoglobin 8.2 g/dl (14.0-18.0); Mean Corpuscular Hemoglobin 26.6 pg (25.0-34.0); Mean Corpuscular Hgb Conc 31.9 g/dL (32.0-36.0); Mean Corpuscular Volume 83.4 fL (80.0-100.0); Mean Platelet Volume 11.3 fL (9.4-12.4); Platelet Count 185 K/uL (130-400); RDW Standard Deviation 51.1 fL (36.4-46.3); Red Blood Count 3.08 M/uL (4.70-6.10); White Blood Count 35.57 K/ul (4.8-10.8)
[2023-06-03 08:11] LABS: Basophils # (auto) 0.08 K/uL (0-0.2); Basophils % (auto) 0.2 %; Echinocytes 2+; Eosinophils # (auto) 0.01 K/uL (0-0.50); Immature Granulocytes % (auto) 0.8 %; Lymphocytes # (auto) 0.59 K/uL (1.2-3.4); Lymphocytes % (auto) 1.7 %; Monocytes # (auto) 1.35 K/uL (0.11-0.59); Monocytes % (auto) 3.8 %; Neutrophils # (auto) 33.24 K/uL (1.40-6.50); Neutrophils % (auto) 93.5 %
[2023-06-03] MEDS ORDERED: PANTOprazole 40 MG TAB PO SCH (09:00)
[2023-06-03] MEDS ORDERED: PNEUMOCOCCAL POLYSACCHARIDES 25 MCG/0.5 ML VIAL/SYR IM ONE (09:00)
[2023-06-03] MEDS ORDERED: NON-FORMULARY MEDICATION (Multivitamin Tablet) PO SCH (09:00)
[2023-06-03] MEDS ORDERED: INDOMETHACIN 50 MG SUPP PR ONE (09:52)
[2023-06-03] MEDS: CEROVITE ADV FORMULA TAB PO SCH (10:23)
[2023-06-03] MEDS: amLODIPine BESYLATE 5 MG TAB PO SCH (10:23)
[2023-06-03] MEDS: ATORVASTATIN 40 MG TAB PO SCH (10:23)
[2023-06-03] MEDS: LANTUS PER UNIT CHARGE SQ SCH (10:29)
--- NOTE | 2023-06-03 10:58 | Gastrointestinal Consultation ---
Date of Consultation June 03, 2023 Assessment & Plan (1) Acute pancreatitis: (2) Cholelithiasis: (3) Cholecystitis: Pt is a 87 yo male who presented w upper abd pain, n/v symptoms x 1 week, noted to have cholelithiasis w cholecystitis on imaging studies. His LFT and lipase were also elevated wo MRCP evidence of biliary ductal dilation or choledocholithiasis , concerning for cholangitis and pancreatitis. - Keep NPO - Continue Zosyn IV , PPI BID - LR IVF support - Plan for EUS/ERCP by Dr. 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 I have discussed the patient's management with the advanced practitioner. Please refer to the nurse practitioner's note for the documented findings and plan of care. EUS + ERCP and EMR of duodenal nodule Patient was explained in detail regarding risks, benefits, limitations and alternatives of the above endoscopic procedure. Risks of intravenous sedation used for procedure were also explained. Risks include, but not limited to perforation, bleeding, infection, respiratory distress, cardiac arrest and . Patient is also aware about the possibility of missed lesion. Patient's questions were answered. The patient verbalized understanding the information and agreed to undergo the procedure. History of Present Illness Reason for Consultation: Pancreatitis Requesting Physician: Dr. Mariana Chauhan Attending Physician: Dr. Lisa Juárez History of Present Illness Patient is an 87 years old male with past medical history including hypertension , diabetes mellitus type 2, history of colon cancer status postresection surgery, prostate cancer status post radiation, CKD, chronic anemia, cholelithiasis and possible, abuse who presented with complaints of epigastric abdominal pain which started about a week ago associated with nausea and vomiting. Yesterday he was nauseous but not having any vomiting. He denies any associated fevers, but having some chills. Appetite has been poor. Feels that he has trouble taking deep breaths due to abdominal pain. Upon evaluation he was noted to have leukocytosis which is worsening despite Zosyn IV overnight, WBC up to 35,000. He is anemic but blood count on his baseline. LFTs noted to be up which is new: Total bilirubin 2.8, AST 158, ALT 149, alkaline phosphatase 250, lipase >1000. CT and MRCP obtained, results reviewed as below. He has evidence of cholelithiasis and acute cholecystitis status as noted on MRCP. CBD 7 mm without choledocholithiasis noted. However given his rising WBC and increasing LFTs, there is concern for cholangitis. This morning on examination he is laying down comfortably in his bed, awake, alert, hard of hearing. Is tender to palpation in the epigastric area but no guarding. Abdomen otherwise soft, bowel sounds hypoactive. Quit tobacco uses in 2016, denies ETOH. 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 abd/pelvis wo contrast: 1. No hydronephrosis or nephrolithiasis. 2. Cholelithiasis. No CT evidence of acute cholecystitis. 3. Diverticulosis, without acute diverticulitis. No small bowel obstruction. No free air. 4. Anastomotic small bowel sutures, correlate for bowel resection. MRCP: 1. There are multiple calculi measuring up to 1.6 cm in the gallbladder.The gallbladder is distended with a 5-6 mm rim of pericholecystic fluid and adjacent edema characteristic of acute cholecystitis. 2. The common bile duct is nondilated measuring 7 mm. No choledocholithiasis is identified. Allergies Allergy/AdvReac Type Severity Reaction Status Date / Time No Known Allergies Allergy Verified 06/03/23 00:01 Home Medications Medication Instructions Recorded Confirmed Type atorvastatin 40 mg tablet 40 mg PO QA 04/14/19 06/02/23 History cholecalciferol (vitamin D3) 25 1,000 unit PO QA 04/14/19 06/02/23 History mcg (1,000 unit) capsule (Vitamin D3) insulin glargine 100 unit/mL (3 40 unit subcut QA 04/14/19 06/02/23 History mL) subcutaneous pen (Lantus Solostar U-100 Insulin) diclofenac sodium 1 % topical gel 2 g topical BID PRN Knee Pain 09/22/20 06/02/23 History metformin 500 mg tablet,extended 500 mg PO QAM 09/22/20 06/02/23 History release 24 hr lisinopril 20 mg tablet 20 mg PO BID 04/25/21 06/02/23 History multivitamin with minerals 1 tab PO DAILY 04/25/21 06/02/23 History (Multiple Vitamin-Minerals tablet) pantoprazole 40 mg tablet,delayed 40 mg PO BID 04/25/21 06/02/23 History release amlodipine 5 mg tablet 5 mg PO QAM 12/27/22 06/02/23 History empagliflozin 10 mg tablet 10 mg PO QAM 12/27/22 06/02/23 History (Jardiance) acetaminophen 500 mg tablet 1,000 mg PO Q8 PRN Pain 06/02/23 06/02/23 History (Tylenol Extra Strength) bimatoprost 0.01 % eye drops 1 drp OPR HS 06/02/23 06/02/23 History (Lumigan) gabapentin 100 mg capsule 100 mg PO HS 06/02/23 06/02/23 History aspirin 81 mg tablet,delayed 81 mg PO DAILY 06/03/23 06/03/23 History release multivitamin 1 tab PO DAILY 06/03/23 06/03/23 History Patient History Medical History Acute kidney injury superimposed on chronic kidney disease CKD (chronic kidney disease), stage III Colon cancer S/P BOWEL RESECTION June. Diabetes mellitus, type II [place] (hard of hearing) HTN (hypertension) Hyperkalemia Hyperlipidemia Hypertension Surgical History H/O umbilical hernia repair History of bowel resection JUNE 05 2018 History of cataract extraction with lens replacement B/L History of colonoscopy History of herniorrhaphy UMBILICAL HERNIA S/P right hemicolectomy Family History Other Heart disease Social History Smoking Status: Former smoker Tobacco Type: Cigarettes Second Hand Exposure: No; Do You Dip or Chew Tobacco: No; Hx Alcohol Use: Yes Alcohol type: beer Hx Substance Use: No Preferred Language: [place]onian Communication Ability: Effective [employer] Required: No Beliefs That Will Affect Care: None Current Living Situation: Alone Other Information That Helps Us Care for You: No Feels Safe at Home: Yes Safety Concerns: Feels Safe At This Time Assistive Devices: Cane, Glasses and Hearing Aid - Bilateral Review of Systems Review of Systems: All systems reviewed & are unremarkable except as noted in HPI & below Physical Exam Constitutional: WD/WN, vitals as above well groomed, cooperative and comfortable Eyes: PERRL, conjunctivae normal, anicteric sclerae ENMT: external ear and nose normal, oropharynx normal Respiratory: normal respiratory effort, lungs clear to auscultation Cardiovascular: RRR, no murmur, no edema Gastrointestinal (Abdomen): Soft, TTP epigastric, BS hypoactive Skin: no rashes, warm and dry no jaundice Psychiatric: A+Ox3, euthymic affect Lymphatic: no lymphedema Results & Data Vital Signs (Past 12 Hours) Vital Signs Temp Pulse Pulse Resp BP BP Pulse Ox 06/03/23 07:49 36.8 C 84 18 122/63 95 06/03/23 04:59 86 18 95 06/03/23 03:05 105 H 06/03/23 02:41 36.7 C 102 H 19 128/61 98 06/03/23 02:45 36.7 C 102 H 20 128/61 98 06/03/23 02:42 06/03/23 01:53 103 H 19 113/57 L 98 06/03/23 01:00 104 H 24 109/60 97 06/03/23 00:23 109 H 06/03/23 00:30 107 H 17 121/53 L 97 06/03/23 00:00 111 H 21 137/67 97 06/02/23 23:46 109 H 16 116/57 L 95 06/02/23 23:00 94 H 17 104/49 L 94 O2 Del Method 06/03/23 07:49 Room Air 06/03/23 04:59 Room Air 06/03/23 03:05 06/03/23 02:41 Room Air 06/03/23 02:45 Room Air 06/03/23 02:42 Room Air 06/03/23 01:53 Room Air 06/03/23 01:00 Room Air 06/03/23 00:23 06/03/23 00:30 Room Air 06/03/23 00:00 Room Air 06/02/23 23:46 Room Air 06/02/23 23:00 Room Air (1) Acute pancreatitis Acute pancreatitis complication: unspecified Pancreatitis type: unspecified pancreatitis type Qualified Code(s): K85.90 - Acute pancreatitis without necrosis or infection, unspecified (2) Cholelithiasis Biliary obstruction: without biliary obstruction Cholecystitis presence: without cholecystitis Cholelithiasis location: gallbladder Qualified Code(s): K80.20 - Calculus of gallbladder without cholecystitis without obstruction
[2023-06-03 12:36] LABS: Chol HDL Ratio 2.2 (0-5)
[2023-06-03] MEDS ORDERED: ROCURONIUM BROMIDE 10 MG/ML 5 ML VIAL IV ONE (12:37)
[2023-06-03] MEDS ORDERED: DEXAMETHASONE SOD INJ 4 MG/ML VIAL ONE (12:37)
[2023-06-03] MEDS ORDERED: ONDANSETRON INJ 2 MG/ML 2 ML VIAL ONE (12:37)
[2023-06-03] MEDS ORDERED: SUGAMMADEX SODIUM 200 MG/2 ML VIAL IV ONE (12:37)
[2023-06-03] MEDS ORDERED: PROPOFOL IV EMULSION 10 MG/ML 20 ML VIAL IV ONE (12:37)
[2023-06-03] MEDS ORDERED: fentaNYL citrate PF 100 MCG/2 ML VIAL ONE ×2 (12:37→14:46)
--- NOTE | 2023-06-03 12:55 | Surgery Consultation ---
Date of Consultation June 03, 2023 Assessment & Plan (1) Cholecystitis: (2) Acute pancreatitis: (3) Cholelithiasis: (4) Abnormal LFTs: Plan 87 year-old male with 1 week history of off and on epigastric abdominal pain with nausea and vomiting. CT scan with cholelithiasis, MRCP with acute calculous cholecystitis and labs with Rising wbc at 35k and elevated t. bili and LFTS concerning for biliary obstruction and cholangitis as wall as gallstone pancreatitis with elevated lipase. Plan: Discussed with patient imaging and laboratory findings concerning for possible biliary obstruction vs cholangitis even through MRCP was negative. GI planning for ERCP this afternoon. Discussed indication for cholecystectomy either during same hospitalization vs outpatient once through acute phase. Given his 1 week history of pain he likely has significant cholecystitis that is masked by his diabetes which could make laparoscopic cholecystectomy difficult and increase the associated surgical risks. Would recommend proceeding with ERCP today to r/o biliary obstruction and cholangitis and can then decide on timing for cholecystectomy. Also discussed option of percutaneous cholecystostomy tube if needed. Will await ERCP results today keep NPO hold anticoagulaiton continue IV antibiotics continue medical management Discussed with Dr. Solis who agrees with above. See addendum for further recommendations/plan. Supervising Physician Co-Signing Physician Notes I have seen and examined the patient personally and agree with the above assessment and plan we will hold on any surgical treatment at this time. Given his history, surgical history, body habitus, comorbidities, he has a very high risk of needing an open cholecystectomy and significant chance of complications, therefore we will proceed with attempted conservative management at this time. We will await the ERCP results. Continue IV antibiotics. We will continue to follow along. History of Present Illness Reason for Consultation: Acute calculous Cholecystitis Requesting Physician: Jackson Farmer MD Attending Physician: Mariana Chauhan MD History of Present Illness Patient is an 87 year old male with past medical history including hypertension, diabetes mellitus type 2, history of colon cancer status post extended right hemicolectomy by Dr. Gonzalez in 2018 , prostate cancer status post radiation, CKD, chronic anemia, cholelithiasis who presented with complaints of epigastric abdominal pain which started about a week ago associated with nausea and vomiting. Yesterday he was nauseous but not having any vomiting. He denies any associated fevers at home but noticed chills in the emergency room. States he never had pain like this before. Pain started Saturday and then improved with lying down and then came again yesterday which was severe and nothing alleviated the pain. Noticed dark urine but no bowel changes or blood in stools. ER work-up included elevated wbc at 29k and elevated total bilirubin at 1.7 and elevated LFTS and lipase of 1219. MRCP showed evidence of acute calculous cholecystitis, CBD normal at 7 mm Labs today show increase in wbc up to 35k, t. bili up to 2.8, d. bili 1.0, AST 158, ALT 149, AND ALK PHOS 350. He currently states he is feeling better today, not having any significant abdominal pain or nausea or vomiting today. Has not required any pain medicatio n. Allergies Allergy/AdvReac Type Severity Reaction Status Date / Time No Known Allergies Allergy Verified 06/03/23 00:01 Home Medications Medication Instructions Recorded Confirmed Type atorvastatin 40 mg tablet 40 mg PO QAM 04/14/19 06/02/23 History cholecalciferol (vitamin D3) 25 1,000 unit PO QAM 04/14/19 06/02/23 History mcg (1,000 unit) capsule (Vitamin D3) insulin glargine 100 unit/mL (3 40 unit subcut QA 04/14/19 06/02/23 History mL) subcutaneous pen (Lantus Solostar U-100 Insulin) diclofenac sodium 1 % topical gel 2 g topical BID PRN Knee Pain 09/22/20 06/02/23 History metformin 500 mg tablet,extended 500 mg PO QAM 09/22/20 06/02/23 History release 24 hr lisinopril 20 mg tablet 20 mg PO BID 04/25/21 06/02/23 History multivitamin with minerals 1 tab PO DAILY 04/25/21 06/02/23 History (Multiple Vitamin-Minerals tablet) pantoprazole 40 mg tablet,delayed 40 mg PO BID 04/25/21 06/02/23 History release amlodipine 5 mg tablet 5 mg PO QAM 12/27/22 06/02/23 History empagliflozin 10 mg tablet 10 mg PO QAM 12/27/22 06/02/23 History (Jardiance) acetaminophen 500 mg tablet 1,000 mg PO Q8 PRN Pain 06/02/23 06/02/23 History (Tylenol Extra Strength) bimatoprost 0.01 % eye drops 1 drp OPR HS 06/02/23 06/02/23 History (Mona) gabapentin 100 mg capsule 100 mg PO HS 06/02/23 06/02/23 History aspirin 81 mg tablet,delayed 81 mg PO DAILY 06/03/23 06/03/23 History release multivitamin 1 tab PO DAILY 06/03/23 06/03/23 History Patient History Medical History Acute kidney injury superimposed on chronic kidney disease CKD (chronic kidney disease), stage III Colon cancer S/P BOWEL RESECTION June. Diabetes mellitus, type II [place] (hard of hearing) HTN (hypertension) Hyperkalemia Hyperlipidemia Hypertension Surgical History H/O umbilical hernia repair History of bowel resection JUNE 05 2018 History of cataract extraction with lens replacement B/L History of colonoscopy History of herniorrhaphy UMBILICAL HERNIA S/P right hemicolectomy Family History Other Heart disease Social History Smoking Status: Former smoker Tobacco Type: Cigarettes Second Hand Exposure: No; Do You Dip or Chew Tobacco: No; Hx Alcohol Use: Yes Alcohol type: beer Hx Substance Use: No Preferred Language: Telugu Communication Ability: Effective Herb Grower Required: No Beliefs That Will Affect Care: None Current Living Situation: Alone Other Information That Helps Us Care for You: No Feels Safe at Home: Yes Safety Concerns: Feels Safe At This Time Assistive Devices: Cane, Glasses and Hearing Aid - Bilateral Physical Exam Constitutional: WD/WN, vitals as above + obese, cooperative and comfortable; no acute distress and not ill appearing Respiratory: normal respiratory effort, lungs clear to auscultation Cardiovascular: RRR, no murmur, no edema Gastrointestinal (Abdomen): Inspection/Auscultation: abdomen normal to inspection, + abdominal surgical scar (midline laparotomy scar) and + hypoactive bowel sounds; abdomen not distended and + abnormal bowel sounds Percussion/Palpation: + abdomen tender (RUQ on deep palpation, negative Oropeza's sign) and abdomen soft; no guarding, abdomen not rigid and abdomen not firm Skin: no rashes, warm and dry + jaundice (mild scleral icterus) Psychiatric: A+Ox3, euthymic affect Results & Data Vital Signs (Past 12 Hours) Vital Signs Temp Pulse Pulse Resp BP BP Pulse Ox 06/03/23 11:02 37.0 C 75 19 135/66 95 06/03/23 07:49 36.8 C 84 18 122/63 95 06/03/23 04:59 86 18 95 06/03/23 03:05 105 H 06/03/23 02:41 36.7 C 102 H 19 128/61 98 06/03/23 02:45 36.7 C 102 H 20 128/61 98 06/03/23 02:42 06/03/23 01:53 103 H 19 113/57 L 98 06/03/23 01:00 104 H 24 109/60 97 O2 Del Method 06/03/23 11:02 Room Air 06/03/23 07:49 Room Air 06/03/23 04:59 Room Air 06/03/23 03:05 06/03/23 02:41 Room Air 06/03/23 02:45 Room Air 06/03/23 02:42 Room Air 06/03/23 01:53 Room Air 06/03/23 01:00 Room Air Laboratory Results 06/03/23 06/03/23 06/03/23 Range/Units 13:03 11:57 11:56 WBC (4.8-10.8) K/ul RBC (4.70-6.10) M/uL Hgb (14.0-18.0) g/dl Hct (42.0-52.0) % MCV (80.0-100.0) fL MCH (25.0-34.0) pg MCHC (32.0-36.0) g/dL RDW Std Deviation (36.4-46.3) fL RDW Coeff of Scott (11.5-14.5) % Plt Count MPV (9.4-12.4) fL Immature Gran % (Auto) % Neut % (Auto) % Lymph % (Auto) % [place] % (Auto) % Eos % (Auto) % Baso % (Auto) % Reticulocyte % (Auto) (0.5-2.0) % Neut # (Auto) (1.40-6.50) K/uL Lymph # (Auto) (1.2-3.4) K/uL Mil[place] # (Auto) (0.11-0.59) K/uL Eos # (Auto) (0-0.50) K/uL Baso # (Auto) (0-0.2) K/uL Reticulocyte # (0.02-0.10) 10^6/uL Immature Gran # (Auto) (0.01-0.20) K/uL Platelet Estimate (Normal) Echinocytes PT (9.0-12.0) Seconds INR (0.9-1.1) VBG pH (7.36-7.41) VBG pCO2 (38-50) mmHg VBG pO2 mmHg VBG HCO3 mmol/L VBG O2 Saturation % VBG Base Excess mEq/L Sodium (136-145) mmol/L Potassium (3.5-5.1) mmol/L Chloride (98-107) mmol/L Carbon Dioxide (21-32) mmol/L Anion Gap (3-11) BUN (6-23) mg/dl Creatinine (0.6-1.4) mg/dl Est Cr Clr Drug Dosing ml/min Est GFR ( Amer) ml/min Est GFR (Non-Af Amer) ml/min BUN/Creatinine Ratio (10-20) Glucose (70-99(Fasting)) mg/dl POC Glucose 108 H 149 H (70-99) mg/dl Lactate (0.4-2.0) mmol/L Calcium (8.6-10.3) mg/dl Magnesium (1.7-2.4) mg/dl Iron (35-175) mcg/dl Transferrin (200-360) mg/dl Ferritin (8-388) ng/ml Total Bilirubin (0.2-1.0) mg/dl Direct Bilirubin (0-0.2) mg/dl AST (13-39) U/L ALT (7-52) U/L Alkaline Phosphatase (34-104) U/L Troponin I High Sens (0-20) pg/ml Total Protein (6.0-8.3) gm/dl Albumin (3.4-5.0) gm/dl Globulin (2.5-4.0) gm/dl Albumin/Globulin Ratio (0.9-2) Triglycerides 60 (0-150) mg/dl Cholesterol 62 (0-200) mg/dl LDL Cholesterol, Calc 22 mg/dl VLDL Cholesterol, Calc 12 (0-30) mg/dl HDL Cholesterol 28 mg/dl Cholesterol/HDL Ratio 2.2 (0-5) Lipase (11-82) U/L Vitamin B12 (180-914) pg/ml Folate (>5.38) ng/ml Procalcitonin (0-0.5) ng/ml Urine Color Urine Appearance (Clear) Urine pH (4.5-7.5) Ur Specific [place] (1.000-1.030) Urine Protein (Negative) Urine Glucose (UA) (Negative) Urine Ketones (Negative) Urine Blood (Negative) Urine Nitrite (Negative) Urine Bilirubin (Negative) Urine Urobilinogen (Negative) Ur Leukocyte Esterase (Negative) SARS-CoV-2, RNA, NAAT (NEGATIVE) Blood Type Antibody Screen 06/03/23 06/03/23 06/03/23 Range/Units 06:51 06:51 06:19 WBC 35.57 H* (4.8-10.8) K/ul RBC 3.08 L (4.70-6.10) M/uL Hgb 8.2 L (14.0-18.0) g/dl Hct 25.7 L (42.0-52.0) % MCV 83.4 (80.0-100.0) fL MCH 26.6 (25.0-34.0) pg MCHC 31.9 L (32.0-36.0) g/dL RDW Std Deviation 51.1 H (36.4-46.3) fL RDW Coeff of Scott 17.0 H (11.5-14.5) % Plt Count 185 MPV 11.3 (9.4-12.4) fL Immature Gran % (Auto) 0.8 % Neut % (Auto) 93.5 % Lymph % (Auto) 1.7 % [place] % (Auto) 3.8 % Eos % (Auto) 0.0 % Baso % (Auto) 0.2 % Reticulocyte % (Auto) (0.5-2.0) % Neut # (Auto) 33.24 H (1.40-6.50) K/uL Lymph # (Auto) 0.59 L (1.2-3.4) K/uL [place] # (Auto) 1.35 H (0.11-0.59) K/uL Eos # (Auto) 0.01 (0-0.50) K/uL Baso # (Auto) 0.08 (0-0.2) K/uL Reticulocyte # (0.02-0.10) 10^6/uL Immature Gran # (Auto) 0.30 H (0.01-0.20) K/uL Platelet Estimate (Normal) Echinocytes 2+ PT (9.0-12.0) Seconds INR (0.9-1.1) VBG pH (7.36-7.41) VBG pCO2 (38-50) mmHg VBG pO2 mmHg VBG HCO3 mmol/L VBG O2 Saturation % VBG Base Excess mEq/L Sodium 136 (136-145) mmol/L Potassium 5.0 (3.5-5.1) mmol/L Chloride 111 H (98-107) mmol/L Carbon Dioxide 17 L (21-32) mmol/L Anion Gap 8 (3-11) BUN 36 H (6-23) mg/dl Creatinine 1.68 H (0.6-1.4) mg/dl Est Cr Clr Drug Dosing 33.9 ml/min Est GFR ( Amer) 42.0 ml/min Est GFR (Non-Af Amer) 36.2 ml/min BUN/Creatinine Ratio 21.4 H (10-20) Glucose 184 H (70-99(Fasting)) mg/dl POC Glucose 185 H (70-99) mg/dl Lactate (0.4-2.0) mmol/L Calcium 8.1 L (8.6-10.3) mg/dl Magnesium (1.7-2.4) mg/dl Iron (35-175) mcg/dl Transferrin (200-360) mg/dl Ferritin (8-388) ng/ml Total Bilirubin 2.8 H D (0.2-1.0) mg/dl Direct Bilirubin (0-0.2) mg/dl AST 158 H (13-39) U/L ALT 149 H (7-52) U/L Alkaline Phosphatase 350 H (34-104) U/L Troponin I High Sens (0-20) pg/ml Total Protein 5.4 L D (6.0-8.3) gm/dl Albumin 3.0 L (3.4-5.0) gm/dl Globulin 2.4 L (2.5-4.0) gm/dl Albumin/Globulin Ratio 1.3 (0.9-2) Triglycerides (0-150) mg/dl Cholesterol (0-200) mg/dl LDL Cholesterol, Calc mg/dl VLDL Cholesterol, Calc (0-30) mg/dl HDL Cholesterol mg/dl Cholesterol/HDL Ratio (0-5) Lipase (11-82) U/L Vitamin B12 (180-914) pg/ml Folate (>5.38) ng/ml Procalcitonin (0-0.5) ng/ml Urine Color Urine Appearance (Clear) Urine pH (4.5-7.5) Ur Specific [place] (1.000-1.030) Urine Protein (Negative) Urine Glucose (UA) (Negative) Urine Ketones (Negative) Urine Blood (Negative) Urine Nitrite (Negative) Urine Bilirubin (Negative) Urine Urobilinogen (Negative) Ur Leukocyte Esterase (Negative) SARS-CoV-2, RNA, NAAT (NEGATIVE) Blood Type Antibody Screen 06/03/23 06/02/23 06/02/23 Range/Units 00:55 23:30 23:18 WBC (4.8-10.8) K/ul RBC (4.70-6.10) M/uL Hgb (14.0-18.0) g/dl Hct (42.0-52.0) % MCV (80.0-100.0) fL MCH (25.0-34.0) pg MCHC (32.0-36.0) g/dL RDW Std Deviation (36.4-46.3) fL RDW Coeff of Scott (11.5-14.5) % Plt Count MPV (9.4-12.4) fL Immature Gran % (Auto) % Neut % (Auto) % Lymph % (Auto) % [place] % (Auto) % Eos % (Auto) % Baso % (Auto) % Reticulocyte % (Auto) (0.5-2.0) % Neut # (Auto) (1.40-6.50) K/uL Lymph # (Auto) (1.2-3.4) K/uL [place] # (Auto) (0.11-0.59) K/uL Eos # (Auto) (0-0.50) K/uL Baso # (Auto) (0-0.2) K/uL Reticulocyte # (0.02-0.10) 10^6/uL Immature Gran # (Auto) (0.01-0.20) K/uL Platelet Estimate (Normal) Echinocytes PT (9.0-12.0) Seconds INR (0.9-1.1) VBG pH (7.36-7.41) VBG pCO2 (38-50) mmHg VBG pO2 mmHg VBG HCO3 mmol/L VBG O2 Saturation % VBG Base Excess mEq/L Sodium (136-145) mmol/L Potassium (3.5-5.1) mmol/L Chloride (98-107) mmol/L Carbon Dioxide (21-32) mmol/L Anion Gap (3-11) BUN (6-23) mg/dl Creatinine (0.6-1.4) mg/dl Est Cr Clr Drug Dosing ml/min Est GFR ( Amer) ml/min Est GFR (Non-Af Amer) ml/min BUN/Creatinine Ratio (10-20) Glucose (70-99(Fasting)) mg/dl POC Glucose (70-99) mg/dl Lactate 1.8 (0.4-2.0) mmol/L Calcium (8.6-10.3) mg/dl Magnesium (1.7-2.4) mg/dl Iron (35-175) mcg/dl Transferrin (200-360) mg/dl Ferritin (8-388) ng/ml Total Bilirubin (0.2-1.0) mg/dl Direct Bilirubin (0-0.2) mg/dl AST (13-39) U/L ALT (7-52) U/L Alkaline Phosphatase (34-104) U/L Troponin I High Sens (0-20) pg/ml Total Protein (6.0-8.3) gm/dl Albumin (3.4-5.0) gm/dl Globulin (2.5-4.0) gm/dl Albumin/Globulin Ratio (0.9-2) Triglycerides (0-150) mg/dl Cholesterol (0-200) mg/dl LDL Cholesterol, Calc mg/dl VLDL Cholesterol, Calc (0-30) mg/dl HDL Cholesterol mg/dl Cholesterol/HDL Ratio (0-5) Lipase (11-82) U/L Vitamin B12 (180-914) pg/ml Folate (>5.38) ng/ml Procalcitonin 21.67 H (0-0.5) ng/ml Urine Color Yellow Urine Appearance Clear (Clear) Urine pH 5.0 (4.5-7.5) Ur Specific [place] 1.014 (1.000-1.030) Urine Protein Negative (Negative) Urine Glucose (UA) 3+ H (Negative) Urine Ketones Negative (Negative) Urine Blood Negative (Negative) Urine Nitrite Negative (Negative) Urine Bilirubin Negative (Negative) Urine Urobilinogen Negative (Negative) Ur Leukocyte Esterase Negative (Negative) SARS-CoV-2, RNA, NAAT (NEGATIVE) Blood Type Antibody Screen 06/02/23 06/02/23 06/02/23 Range/Units 23:18 23:18 23:18 WBC (4.8-10.8) K/ul RBC (4.70-6.10) M/uL Hgb (14.0-18.0) g/dl Hct (42.0-52.0) % MCV (80.0-100.0) fL MCH (25.0-34.0) pg MCHC (32.0-36.0) g/dL RDW Std Deviation (36.4-46.3) fL RDW Coeff of Scott (11.5-14.5) % Plt Count MPV (9.4-12.4) fL Immature Gran % (Auto) % Neut % (Auto) % Lymph % (Auto) % [place] % (Auto) % Eos % (Auto) % Baso % (Auto) % Reticulocyte % (Auto) 1.6 (0.5-2.0) % Neut # (Auto) (1.40-6.50) K/uL Lymph # (Auto) (1.2-3.4) K/uL [place] # (Auto) (0.11-0.59) K/uL Eos # (Auto) (0-0.50) K/uL Baso # (Auto) (0-0.2) K/uL Reticulocyte # 0.05 (0.02-0.10) 10^6/uL Immature Gran # (Auto) (0.01-0.20) K/uL Platelet Estimate (Normal) Echinocytes PT 12.2 H (9.0-12.0) Seconds INR 1.1 (0.9-1.1) VBG pH 7.27 L (7.36-7.41) VBG pCO2 35 L (38-50) mmHg VBG pO2 32 mmHg VBG HCO3 16 mmol/L VBG O2 Saturation < 60.0 % VBG Base Excess -9.9 mEq/L Sodium (136-145) mmol/L Potassium (3.5-5.1) mmol/L Chloride (98-107) mmol/L Carbon Dioxide (21-32) mmol/L Anion Gap (3-11) BUN (6-23) mg/dl Creatinine (0.6-1.4) mg/dl Est Cr Clr Drug Dosing ml/min Est GFR ( Amer) ml/min Est GFR (Non-Af Amer) ml/min BUN/Creatinine Ratio (10-20) Glucose (70-99(Fasting)) mg/dl POC Glucose (70-99) mg/dl Lactate (0.4-2.0) mmol/L Calcium (8.6-10.3) mg/dl Magnesium (1.7-2.4) mg/dl Iron (35-175) mcg/dl Transferrin (200-360) mg/dl Ferritin (8-388) ng/ml Total Bilirubin (0.2-1.0) mg/dl Direct Bilirubin (0-0.2) mg/dl AST (13-39) U/L ALT (7-52) U/L Alkaline Phosphatase (34-104) U/L Troponin I High Sens (0-20) pg/ml Total Protein (6.0-8.3) gm/dl Albumin (3.4-5.0) gm/dl Globulin (2.5-4.0) gm/dl Albumin/Globulin Ratio (0.9-2) Triglycerides (0-150) mg/dl Cholesterol (0-200) mg/dl LDL Cholesterol, Calc mg/dl VLDL Cholesterol, Calc (0-30) mg/dl HDL Cholesterol mg/dl Cholesterol/HDL Ratio (0-5) Lipase (11-82) U/L Vitamin B12 (180-914) pg/ml Folate (>5.38) ng/ml Procalcitonin (0-0.5) ng/ml Urine Color Urine Appearance (Clear) Urine pH (4.5-7.5) Ur Specific [place] (1.000-1.030) Urine Protein (Negative) Urine Glucose (UA) (Negative) Urine Ketones (Negative) Urine Blood (Negative) Urine Nitrite (Negative) Urine Bilirubin (Negative) Urine Urobilinogen (Negative) Ur Leukocyte Esterase (Negative) SARS-CoV-2, RNA, NAAT (NEGATIVE) Blood Type Antibody Screen 06/02/23 06/02/23 06/02/23 Range/Units 23:18 23:18 20:56 WBC (4.8-10.8) K/ul RBC (4.70-6.10) M/uL Hgb (14.0-18.0) g/dl Hct (42.0-52.0) % MCV (80.0-100.0) fL MCH (25.0-34.0) pg MCHC (32.0-36.0) g/dL RDW Std Deviation (36.4-46.3) fL RDW Coeff of Scott (11.5-14.5) % Plt Count MPV (9.4-12.4) fL Immature Gran % (Auto) % Neut % (Auto) % Lymph % (Auto) % [place] % (Auto) % Eos % (Auto) % Baso % (Auto) % Reticulocyte % (Auto) (0.5-2.0) % Neut # (Auto) (1.40-6.50) K/uL Lymph # (Auto) (1.2-3.4) K/uL [place] # (Auto) (0.11-0.59) K/uL Eos # (Auto) (0-0.50) K/uL Baso # (Auto) (0-0.2) K/uL Reticulocyte # (0.02-0.10) 10^6/uL Immature Gran # (Auto) (0.01-0.20) K/uL Platelet Estimate (Normal) Echinocytes PT (9.0-12.0) Seconds INR (0.9-1.1) VBG pH (7.36-7.41) VBG pCO2 (38-50) mmHg VBG pO2 mmHg VBG HCO3 mmol/L VBG O2 Saturation % VBG Base Excess mEq/L Sodium (136-145) mmol/L Potassium (3.5-5.1) mmol/L Chloride (98-107) mmol/L Carbon Dioxide (21-32) mmol/L Anion Gap (3-11) BUN (6-23) mg/dl Creatinine (0.6-1.4) mg/dl Est Cr Clr Drug Dosing ml/min Est GFR ( Amer) ml/min Est GFR (Non-Af Amer) ml/min BUN/Creatinine Ratio (10-20) Glucose (70-99(Fasting)) mg/dl POC Glucose (70-99) mg/dl Lactate (0.4-2.0) mmol/L Calcium (8.6-10.3) mg/dl Magnesium (1.7-2.4) mg/dl Iron (35-175) mcg/dl Transferrin (200-360) mg/dl Ferritin (8-388) ng/ml Total Bilirubin (0.2-1.0) mg/dl Direct Bilirubin (0-0.2) mg/dl AST (13-39) U/L ALT (7-52) U/L Alkaline Phosphatase (34-104) U/L Troponin I High Sens (0-20) pg/ml Total Protein (6.0-8.3) gm/dl Albumin (3.4-5.0) gm/dl Globulin (2.5-4.0) gm/dl Albumin/Globulin Ratio (0.9-2) Triglycerides (0-150) mg/dl Cholesterol (0-200) mg/dl LDL Cholesterol, Calc mg/dl VLDL Cholesterol, Calc (0-30) mg/dl HDL Cholesterol mg/dl Cholesterol/HDL Ratio (0-5) Lipase (11-82) U/L Vitamin B12 1415 H (180-914) pg/ml Folate > 22.30 (>5.38) ng/ml Procalcitonin (0-0.5) ng/ml Urine Color Urine Appearance (Clear) Urine pH (4.5-7.5) Ur Specific [place] (1.000-1.030) Urine Protein (Negative) Urine Glucose (UA) (Negative) Urine Ketones (Negative) Urine Blood (Negative) Urine Nitrite (Negative) Urine Bilirubin (Negative) Urine Urobilinogen (Negative) Ur Leukocyte Esterase (Negative) SARS-CoV-2, RNA, NAAT NEGATIVE (NEGATIVE) Blood Type O Positive Antibody Screen NEGATIVE 06/02/23 06/02/23 Range/Units 20:10 20:10 WBC 29.60 H (4.8-10.8) K/ul RBC 3.72 L (4.70-6.10) M/uL Hgb 9.9 L (14.0-18.0) g/dl Hct 31.4 L (42.0-52.0) % MCV 84.4 (80.0-100.0) fL MCH 26.6 (25.0-34.0) pg MCHC 31.5 L (32.0-36.0) g/dL RDW Std Deviation 51.4 H (36.4-46.3) fL RDW Coeff of Scott 16.8 H (11.5-14.5) % Plt Count Pending MPV (9.4-12.4) fL Immature Gran % (Auto) 0.5 % Neut % (Auto) 93.7 % Lymph % (Auto) 3.3 % [place] % (Auto) 2.2 % Eos % (Auto) 0.1 % Baso % (Auto) 0.2 % Reticulocyte % (Auto) (0.5-2.0) % Neut # (Auto) 27.72 H (1.40-6.50) K/uL Lymph # (Auto) 0.99 L (1.2-3.4) K/uL [place] # (Auto) 0.64 H (0.11-0.59) K/uL Eos # (Auto) 0.02 (0-0.50) K/uL Baso # (Auto) 0.07 (0-0.2) K/uL Reticulocyte # (0.02-0.10) 10^6/uL Immature Gran # (Auto) 0.16 (0.01-0.20) K/uL Platelet Estimate Normal (Normal) Echinocytes PT (9.0-12.0) Seconds INR (0.9-1.1) VBG pH (7.36-7.41) VBG pCO2 (38-50) mmHg VBG pO2 mmHg VBG HCO3 mmol/L VBG O2 Saturation % VBG Base Excess mEq/L Sodium 138 (136-145) mmol/L Potassium 4.4 (3.5-5.1) mmol/L Chloride 110 H (98-107) mmol/L Carbon Dioxide 14 L (21-32) mmol/L Anion Gap 14 H (3-11) BUN 46 H (6-23) mg/dl Creatinine 1.86 H (0.6-1.4) mg/dl Est Cr Clr Drug Dosing 30.9 ml/min Est GFR ( Amer) 37.1 ml/min Est GFR (Non-Af Amer) 32.0 ml/min BUN/Creatinine Ratio 24.7 H (10-20) Glucose 149 H (70-99(Fasting)) mg/dl POC Glucose (70-99) mg/dl Lactate (0.4-2.0) mmol/L Calcium 9.3 (8.6-10.3) mg/dl Magnesium 1.7 (1.7-2.4) mg/dl Iron 34 L (35-175) mcg/dl Transferrin 250 (200-360) mg/dl Ferritin 42.0 (8-388) ng/ml Total Bilirubin 1.7 H (0.2-1.0) mg/dl Direct Bilirubin 1.0 H (0-0.2) mg/dl AST 129 H (13-39) U/L ALT 98 H (7-52) U/L Alkaline Phosphatase 453 H (34-104) U/L Troponin I High Sens 11.6 (0-20) pg/ml Total Protein 6.9 (6.0-8.3) gm/dl Albumin 3.8 (3.4-5.0) gm/dl Globulin 3.1 (2.5-4.0) gm/dl Albumin/Globulin Ratio 1.2 (0.9-2) Triglycerides (0-150) mg/dl Cholesterol (0-200) mg/dl LDL Cholesterol, Calc mg/dl VLDL Cholesterol, Calc (0-30) mg/dl HDL Cholesterol mg/dl Cholesterol/HDL Ratio (0-5) Lipase 1219 H (11-82) U/L Vitamin B12 (180-914) pg/ml Folate (>5.38) ng/ml Procalcitonin (0-0.5) ng/ml Urine Color Urine Appearance (Clear) Urine pH (4.5-7.5) Ur Specific [place] (1.000-1.030) Urine Protein (Negative) Urine Glucose (UA) (Negative) Urine Ketones (Negative) Urine Blood (Negative) Urine Nitrite (Negative) Urine Bilirubin (Negative) Urine Urobilinogen (Negative) Ur Leukocyte Esterase (Negative) SARS-CoV-2, RNA, NAAT (NEGATIVE) Blood Type Antibody Screen Diagnostic Findings Exam(s): MRI MRCP EXAM: MR Abdomen Without Intravenous Contrast, MRCP Protocol CLINICAL HISTORY: Reason for exam: abn lfts. TECHNIQUE: Multiplanar magnetic resonance images of the abdomen without intravenous contrast using MRCP protocol. COMPARISON: CT scan from June to 2022 FINDINGS: Bile ducts: The common bile duct is nondilated measuring 7 mm. No choledocholithiasis is identified. Gallbladder: There are multiple calculi measuring up to 1.6 cm in the gallbladder. The gallbladder is distended with a 5-6 mm rim of pericholecystic fluid and adjacent edema characteristic of acute cholecystitis. Liver: The liver is mildly enlarged is 18.5 cm craniocaudad. No focal liver lesion is seen. Pancreas: The pancreatic duct is nondilated. Spleen: Unremarkable. No splenomegaly. Adrenals: Unremarkable. No mass. Kidneys and ureters: Mild bilateral renal atrophy with mild perinephric stranding suggesting renal insufficiency. No hydronephrosis is identified. 6 mm simple cyst in the left kidney. No follow-up is required. Stomach and bowel: Unremarkable. No obstruction. Vasculature: The portal vein is patent are nondilated measuring 12 mm. IMPRESSION: 1. There are multiple calculi measuring up to 1.6 cm in the gallbladder. The gallbladder is distended with a 5-6 mm rim of pericholecystic fluid and adjacent edema characteristic of acute cholecystitis. 2. The common bile duct is nondilated measuring 7 mm. No choledocholithiasis is identified. Exam(s): CT ABDOMEN + PELVIS Without Contrast EXAM: CT Abdomen and Pelvis Without Intravenous Contrast CLINICAL HISTORY: Reason for exam: vomiting. TECHNIQUE: Axial computed tomography images of the abdomen and pelvis without intravenous contrast. CTDI is 33 yo35.55 mGy and DLP is 1681.19 mGy-cm. Automated exposure control was utilized for the study. A dose lowering technique was utilized adhering to the principles of ALARA. COMPARISON: No relevant prior studies available. FINDINGS: Lung bases: Unremarkable. No mass. No consolidation. ABDOMEN: Liver: Unremarkable. Gallbladder and bile ducts: Cholelithiasis. No CT evidence of acute cholecystitis. No ductal dilation. Pancreas: Adjuvant pancreas. No ductal dilation. Spleen: Unremarkable. No splenomegaly. Adrenals: Unremarkable. No mass. Kidneys and ureters: Unremarkable. No hydronephrosis or nephrolithiasis. Stomach and bowel: Diverticulosis, without acute diverticulitis. No small bowel obstruction. Anastomotic small bowel sutures, correlate for bowel resection. PELVIS: Appendix: No findings to suggest acute appendicitis. Bladder: Decompressed urinary bladder. No stones. Reproductive: Prostate fiduciary markers. ABDOMEN and PELVIS: Intraperitoneal space: Unremarkable. No free air. No significant fluid collection. Bones/joints: Degenerative changes of the spine. No acute fracture. No dislocation. Soft tissues: Unremarkable. Vasculature: Atherosclerotic changes of the aorta. No abdominal aortic aneurysm. Lymph nodes: Unremarkable. No enlarged lymph nodes. IMPRESSION: 1. No hydronephrosis or nephrolithiasis. 2. Cholelithiasis. No CT evidence of acute cholecystitis. 3. Diverticulosis, without acute diverticulitis. No small bowel obstruction. No free air. 4. Anastomotic small bowel sutures, correlate for bowel resectio (2) Acute pancreatitis Acute pancreatitis complication: unspecified Pancreatitis type: unspecified pancreatitis type Qualified Code(s): K85.90 - Acute pancreatitis without necrosis or infection, unspecified (3) Cholelithiasis Biliary obstruction: without biliary obstruction Cholecystitis presence: without cholecystitis Cholelithiasis location: gallbladder Qualified Code(s): K80.20 - Calculus of gallbladder without cholecystitis without obstruction
--- NOTE | 2023-06-03 13:32 | Anesthesiology Consultation ---
Date of Service June 03, 2023 History Surgery Operation Date: 06/03/23 08:30 Proposed Procedures p Endoscopic Retrograde Cholangiopancreato - Lisa Juárez MD s Endoscopic Ultrasonography Upper - Lisa Juárez MD Height/Weight Height: 5 ft 8 in Weight: 87.4 kg Allergies Allergy/AdvReac Type Severity Reaction Status Date / Time No Known Allergies Allergy Verified 06/03/23 00:01 Medications Home Medications Medication Instructions Recorded Confirmed Last Taken atorvastatin 40 mg tablet 40 mg PO QAM 04/14/19 06/02/23 06/02/23 08:00 cholecalciferol (vitamin D3) 25 1,000 unit PO QAM 04/14/19 06/02/23 01/01/23 mcg (1,000 unit) capsule (Vitamin D3) insulin glargine 100 unit/mL (3 40 unit subcut [facility] 04/14/19 06/02/23 06/02/23 08:00 mL) subcutaneous pen (Lantus Solostar U-100 Insulin) diclofenac sodium 1 % topical gel 2 g topical BID PRN Knee Pain 09/22/20 06/02/23 01/01/23 metformin 500 mg tablet,extended 500 mg PO QAM 09/22/20 06/02/23 06/02/23 08:00 release 24 hr lisinopril 20 mg tablet 20 mg PO BID 04/25/21 06/02/23 06/02/23 multivitamin with minerals 1 tab PO DAILY 04/25/21 06/02/23 01/01/23 (Multiple Vitamin-Minerals tablet) pantoprazole 40 mg tablet,delayed 40 mg PO BID 04/25/21 06/02/23 01/02/23 05:00 release amlodipine 5 mg tablet 5 mg PO QAM 12/27/22 06/02/23 06/02/23 08:00 empagliflozin 10 mg tablet 10 mg PO QA 12/27/22 06/02/23 06/02/23 08:00 (Jardiance) acetaminophen 500 mg tablet 1,000 mg PO Q8 PRN Pain 06/02/23 06/02/23 Unknown (Tylenol Extra Strength) bimatoprost 0.01 % eye drops 1 drp OPR HS 06/02/23 06/02/23 Unknown (Lumigan) gabapentin 100 mg capsule 100 mg PO 06/02/23 06/02/23 Unknown aspirin 81 mg tablet,delayed 81 mg PO DAILY 06/03/23 06/03/23 Unknown release multivitamin 1 tab PO DAILY 06/03/23 06/03/23 Unknown Active Medications Generic Name Dose Route Start Last Admin Trade Name Shruti PRN Reason Stop Dose Admin Amlodipine Besylate 5 mg 06/03/23 09:00 06/03/23 10:23 Amlodipine Besylate 5 Mg Tab PO 07/03/23 08:59 5 mg QAM DALILA Administration Atorvastatin Calcium 40 mg 06/03/23 09:00 06/03/23 10:23 Atorvastatin 40 Mg Tab PO 07/03/23 08:59 40 mg QAM DLAILA Administration Heparin Sodium (Porcine) 5,000 units 06/03/23 06:00 06/03/23 06:36 Heparin Sod 5,000 Unit/0.5 Ml Vial SQ 07/03/23 05:59 5,000 units Q8 DALILA Administration Piperacillin Sod/Tazobactam 120 mls @ 30 mls/hr 06/03/23 04:00 06/03/23 11:50 Sod 4.5 gm/ Dextrose IV 06/13/23 03:59 Infused Q8H DALILA Infusion Protocol Lactated Ringer's 1,000 mls @ 200 mls/hr 06/03/23 04:00 06/03/23 10:26 Lr IV 07/03/23 03:59 125 mls/hr .Q5H DALILA Administration Insulin Aspart 0 units 06/03/23 06:00 06/03/23 06:34 Insulin Aspart Per Unit Charge SC 07/03/23 05:59 2 units Q6 DALILA Administration Insulin Glargine 10 units 06/03/23 09:00 06/03/23 10:29 Lantus Per Unit Charge SQ 07/03/23 08:59 10 units DAILY DALILA Administration Multivitamins/Minerals 1 tab 06/03/23 09:00 06/03/23 10:23 Cerovite Adv Formula Tab PO 07/03/23 08:59 1 tab DAILY DALILA Administration Pantoprazole Sodium 40 mg 06/03/23 09:00 06/03/23 10:24 Pantoprazole 40 Mg Tab PO 07/03/23 08:59 40 mg BID DALILA Administration NPO Date Last Intake of Fluids: 06/02/23 Time Last Intake of Fluids: 13:00 Date Last Intake of Solids: 06/02/23 Time Last Intake of Solids: 13:00 Past Medical History Medical History Acute kidney injury superimposed on chronic kidney disease CKD (chronic kidney disease), stage III Colon cancer S/P BOWEL RESECTION June. Diabetes mellitus, type II [place] (hard of hearing) HTN (hypertension) Hyperkalemia Hyperlipidemia Hypertension Past Family History Family History Other Heart disease Past Surgical History Surgical History H/O umbilical hernia repair History of bowel resection JUNE 05 2018 History of cataract extraction with lens replacement B/L History of colonoscopy History of herniorrhaphy UMBILICAL HERNIA S/P right hemicolectomy Social History Smoking Status: Former smoker tobacco type: pipe and cigars Do You Dip or Chew Tobacco: No Hx Alcohol Use: Yes Alcohol type: beer alcohol intake frequency: holidays/special occasions only Hx Substance Use: No substance use type: does not use Physical Exam Vital Signs Last Vital Signs Temp 36.7 C 06/03/23 13:00 Pulse 72 06/03/23 13:00 Resp 18 06/03/23 13:00 BP 138/66 06/03/23 13:00 Pulse Ox 96 06/03/23 13:00 O2 Del Method Room Air 06/03/23 13:00 Testing Laboratory Results 06/03/23 06:51 06/03/23 06:51 PT 12.2 Seconds (9.0-12.0) H 06/02/23 23:18 INR 1.1 (0.9-1.1) 06/02/23 23:18 Urine Color Yellow 06/03/23 00:55 Urine Appearance Clear (Clear) 06/03/23 00:55 Urine pH 5.0 (4.5-7.5) 06/03/23 00:55 Ur Specific Patterson 1.014 (1.000-1.030) 06/03/23 00:55 Urine Protein Negative (Negative) 06/03/23 00:55 Urine Glucose (UA) 3+ (Negative) H 06/03/23 00:55 Urine Ketones Negative (Negative) 06/03/23 00:55 Urine Nitrite Negative (Negative) 06/03/23 00:55 Ur Leukocyte Esterase Negative (Negative) 06/03/23 00:55 Blood Type O Positive 06/02/23 23:18 Antibody Screen NEGATIVE 06/02/23 23:18 06/03/23 06/03/23 06/03/23 13:03 11:57 06:19 POC Glucose 108 H 149 H 185 H
[2023-06-03] MEDS ORDERED: ATROPINE SULFATE 0.1 MG/ML 10ML SYR IV PRN (13:37)
[2023-06-03] MEDS ORDERED: ePHEDrine sulfate 50 MG/ML AMP IV PRN (13:37)
[2023-06-03] MEDS ORDERED: ONDANSETRON INJ 2 MG/ML 2 ML VIAL IV PRN (13:37)
[2023-06-03] MEDS ORDERED: fentaNYL citrate PF 100 MCG/2 ML VIAL IV PRN (13:37)
[2023-06-03] MEDS ORDERED: METHYLENE BLUE 0.5% 10 ML VIAL ONE (13:41)
[2023-06-03] MEDS ORDERED: LARYING-O-JET KIT (LTA) ONE (14:04)
[2023-06-03] MEDS ORDERED: ePHEDrine sulfate 50 MG/ML SYR ONE (14:16)
--- NOTE | 2023-06-03 16:12 | Communication Note ---
Date of Service: June 03, 2023 87-year-old male with PMH of HTN, DM 2 insulin requiring, colon cancer status post surgery, prostate cancer status post radiation, CRI [baseline creatinine 1 .6], chronic anemia [baseline hemoglobin 10-11], cholelithiasis, past tobacco abuse presented with abdominal pain. Of note, patient had right upper quadrant/epigastric abdominal pain the 2 weekends prior to arrival followed by relief and followed by this episode of abdominal pain starting last weekend [employer]. Patient had one-time episode of bilious emesis and febrile. Prior to arrival. Also associated with nausea. He is being managed for the following: Cholecystitis Cholelithiasis Pancreatitis Transaminitis: Likely secondary to above Sepsis POA At presentation: Patient with abdominal pain, febrile. Pulse elevated, lactate normal, WBC elevated at 29.6 K, lipase 1219, LFT elevated. Admitting imagings: CXR with no acute finding. CTAP with cholelithiasis. MRCP with cholelithiasis and acute cholecystitis/nondilated common bile duct/no choledocholithiasis. 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 Follow-up admitting blood culture. Trend LFT, GI evaluated, appreciate recommendation. Plan for ERCP today. Surgery consulted, await recommendation. Clinically patient with improving abdominal pain at bedside exam today. Patient has been afebrile and reports feeling better. Acute kidney injury over CKD stage III: Admitting creatinine elevated, on IV fluids, improving. Labs in AM. Other chronic medical condition: Continue with/resume home meds as able. hypertension, stable DM2 insulin requiring, reasonable control as of recent hemoglobin A1c of 7.4 last January 2023 colon cancer status post surgery prostate cancer status post radiation chronic anemia, hemoglobin slightly lower than baseline past tobacco abuse DVT prophylaxis: Heparin subcu DNR/DNI Patient granddaughter Ms. Lakeshia Montanez, contact #[phone].
--- NOTE | 2023-06-03 16:16 | Operative Report ---
Post Operative Report Pre & Post Diagnosis Operation Date: 06/03/23 08:30 Pre-Op Diagnosis: Acute pancreatitis, cholelithiasis, cholecystitis Post-Op Diagnosis: Acute pancreatitis, cholelithiasis, cholecystitis I identified the patient and participated in the time-out.: Yes Procedure Operation Date: 06/03/23 08:30 Actual Procedures p Endoscopic Retrograde Cholangiopancreatography(Not Applicable) - Lisa Juárez MD s Endoscopic Ultrasonography Upper - Lisa Juárez MD Surgeon Lisa Juárez MD Licensed Veterinary Technician None Estimated Blood Loss 0 Findings See Below (Pancreas mass, biopsied, Duodenal carcinoid resected. Cholangitis, stents placed) Specimens Pancreas mass FNA, two duodenal nodules Description of Procedure EUS/ERCP/EMR I attest to the content of the Intraoperative Record and any orders documented therein. Any exceptions are noted below.
--- NOTE | 2023-06-03 16:49 | GI REPORT ---
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 Procedure: Pre-Anesthesia Assessment: - Prior to the procedure, a History and Physical was performed, and patient medications, allergies and sensitivities were reviewed. The patient's tolerance of previous anesthesia was reviewed. - The risks and benefits of the procedure and the sedation options and risks were discussed with the patient. All questions were answered and informed consent was obtained. - Patient identification and proposed procedure were verified prior to the procedure by the physician and the nurse. The procedure was verified in the procedure room. - Pre-procedure physical examination revealed no contraindications to sedation. After obtaining informed consent, the endoscope was passed under direct vision. Throughout the procedure, the patient's blood pressure, pulse, and oxygen saturations were monitored continuously. The Endoscope was introduced through the mouth, and advanced to the second part of duodenum. The upper GI endoscopy was accomplished without difficulty. The patient tolerated the procedure well. Findings: The examined esophagus was normal. The entire examined stomach was normal. A single 6 mm submucosal nodule was found in the duodenal bulb. Preparations were made for mucosal resection. Thermal marking with the tip of a snare was done to katherine the borders of the lesion. Demarcation of the lesion was performed to clearly identify boundaries of the lesion. Band ligator and snare mucosal resection with cap retrieval was performed. Resection and retrieval were complete. A single 10 mm submucosal nodule was found in the duodenal bulb. Preparations were made for mucosal resection. Thermal marking with the tip of a snare was done to katherine the borders of the lesion. Demarcation of the lesion was performed to clearly identify boundaries of the lesion. Band ligator and snare mucosal resection with cap retrieval was performed. Resection and retrieval were complete. There was a target sign indicating MP injury/perforation. To repair the defect, the tissue edges were approximated and one [id number] Padlock clip was successfully placed (MR conditional). Closure of the defect was successful. One hemostatic clip was successfully placed. Contrast was injected into the lumen and fluoroscopy was obtained, no extravasation seen indicating complete closure. I personally interpreted the fluoroscopic images. The second portion of the duodenum was normal. Impression: - Normal esophagus. - Normal stomach. - Two submucosal nodules found in the duodenum. Complete removal was accomplished with Band EMR. One Padlock clip placed. Recommendation: - [facility] care. - NPO today. - Perform CT scan (computed tomography) of the abdomen with PO contrast only now. - If CT scan shows no contrast extravasation then will start clear liquid diet tomorrow. - Use a proton pump inhibitor IV BID for 3 days then PO BID for 2 months. - Continue IV ABx. - Repeat EGD for surveillance based on path results. - Await pathology results. Lisa Juárez MD 06/03/2023 4:49:14 PM This report has been signed electronically. Note Initiated On: 06/03/2023 1:09 PM Number of Addenda: 0 I attest to the content of the Intraoperative Record and orders documented therein, exceptions below {[id number]}
--- NOTE | 2023-06-03 16:57 | Anesthesiology Progress Note ---
Date of Service June 03, 2023 Anesthesia Post Procedure Vital Signs Vital Signs: Temp Pulse Pulse Pulse Resp BP BP 06/03/23 16:55 73 18 139/72 06/03/23 16:45 36.5 C 74 18 135/92 06/03/23 16:35 78 18 139/61 06/03/23 16:27 36.1 C L 83 16 125/97 06/03/23 07:30 06/03/23 13:00 36.7 C 72 18 138/66 06/03/23 11:02 37.0 C 75 19 135/66 06/03/23 07:49 36.8 C 84 18 122/63 06/03/23 04:59 86 18 06/03/23 03:05 105 H 06/03/23 02:41 36.7 C 102 H 19 128/61 06/03/23 02:45 36.7 C 102 H 20 128/61 06/03/23 02:42 06/03/23 01:53 103 H 19 113/57 L 06/03/23 01:00 104 H 24 109/60 06/03/23 00:23 109 H 06/03/23 00:30 107 H 17 121/53 L 06/03/23 00:00 111 H 21 137/67 06/02/23 23:46 109 H 16 116/57 L 06/02/23 23:00 94 H 17 104/49 L 06/02/23 22:30 110 H 22 121/57 L 06/02/23 22:00 105 H 20 128/60 06/02/23 21:30 117 H 21 140/65 06/02/23 21:00 115 H 14 145/114 H 06/02/23 20:40 106 H 06/02/23 20:23 116 H 06/02/23 20:12 36.9 C 123 H 28 H 114/51 L Pulse Ox O2 Del Method 06/03/23 16:55 92 Room Air 06/03/23 16:45 92 Room Air 06/03/23 16:35 92 Room Air 06/03/23 16:27 96 Room Air 06/03/23 07:30 Room Air 06/03/23 13:00 96 Room Air 06/03/23 11:02 95 Room Air 06/03/23 07:49 95 Room Air 06/03/23 04:59 95 Room Air 06/03/23 03:05 06/03/23 02:41 98 Room Air 06/03/23 02:45 98 Room Air 06/03/23 02:42 Room Air 06/03/23 01:53 98 Room Air 06/03/23 01:00 97 Room Air 06/03/23 00:23 06/03/23 00:30 97 Room Air 06/03/23 00:00 97 Room Air 06/02/23 23:46 95 Room Air 06/02/23 23:00 94 Room Air 06/02/23 22:30 95 Room Air 06/02/23 22:00 96 Room Air 06/02/23 21:30 98 Room Air 06/02/23 21:00 96 Room Air 06/02/23 20:40 95 Room Air 06/02/23 20:23 06/02/23 20:12 95 Room Air Pain Intensity Lower Abdomen: Pain Intensity: 8 Transfer of Care Handoff Completed per policy Notes Mental Status: alert / awake / arousable Patient Amnestic to Procedure: Yes Nausea / Vomiting: adequately controlled Pain: adequately controlled Airway Patency, RR, SpO2: stable & adequate BP & HR: stable & adequate Hydration State: stable & adequate Anesthetic Complications: no major complications apparent
--- NOTE | 2023-06-03 17:03 | GI REPORT ---
Patient Name: Gopi Irvin Procedure Date: 06/03/2023 1:10 PM Date of : 1935 Admit Type: Inpatient Age: 87 Gender: Male Attending MD: Lisa Juárez MD, Procedure: Upper EUS Providers: Lisa Juárez MD Referring MD: Mariana Chauhan Md Indications: Elevated liver enzymes, Suspected choledocholithiasis Medicines: General Anesthesia Complications: No immediate complications. Estimated Blood Loss: Estimated blood loss: none. Procedure: Pre-Anesthesia Assessment: - Prior to the procedure, a History and Physical was performed, and patient medications, allergies and sensitivities were reviewed. The patient's tolerance of previous anesthesia was reviewed. - The risks and benefits of the procedure and the sedation options and risks were discussed with the patient. All questions were answered and informed consent was obtained. - Patient identification and proposed procedure were verified prior to the procedure by the physician and the nurse. The procedure was verified in the procedure room. - Pre-procedure physical examination revealed no contraindications to sedation. After obtaining informed consent, the endoscope was passed under direct vision. Throughout the procedure, the patient's blood pressure, pulse, and oxygen saturations were monitored continuously. The Scope was introduced through the mouth, and advanced to the second part of duodenum. The upper EUS was accomplished without difficulty. The patient tolerated the procedure well. Findings: ENDOSONOGRAPHIC FINDING: : There was no sign of significant endosonographic abnormality in the ampulla. No masses were identified. Periampullary diverticulum seen. There was dilation in the common bile duct which measured up to 8 mm. The duct wall was thickened suggestive of cholangitis. One stone was visualized endosonographically in the common bile duct. The stone was round. It was hyperechoic. Many stones were visualized endosonographically in the gallbladder. They were hyperechoic and characterized by shadowing. There was no sign of significant endosonographic abnormality in the visualized portion of the liver. Homogeneous parenchyma was identified. Pancreatic parenchymal abnormalities were noted in the entire pancreas. These consisted of atrophy, hyperechoic strands and hyperechoic foci. An oval mass was identified in the pancreatic body. The mass was hypoechoic. The mass measured 25 mm in maximal cross-sectional diameter. The endosonographic borders were well-defined. There was sonographic evidence suggesting invasion into the splenic artery (manifested by encasement) and the splenic vein (manifested by encasement). An intact interface was seen between the mass and the adjacent structures suggesting a lack of invasion. Fine needle aspiration for cytology was performed. Color Doppler imaging was utilized prior to needle puncture to confirm a lack of significant vascular structures within the needle path. Five passes were made with the 25 gauge needle using a transgastric approach. A stylet was used. A handbag designer was present and performed a preliminary cytologic examination. The cellularity of the specimen was adequate. Final cytology results are pending. Verification of patient identification for the specimen was done by the physician and nurse using the patient's name and date. This was staged T2 N0 Mx by endosonographic criteria. The staging applies if malignancy is confirmed. An oval intramural (subepithelial) lesion was found in the duodenal bulb. The lesion was hypoechoic. Endosonographically, the lesion appeared to originate from within the submucosa (Layer 3). The lesion measured 4 mm (in maximum thickness). The lesion also measured 10 mm in diameter. The outer margins were well defined. Impression: - There was no sign of significant pathology in the ampulla. - There was dilation in the common bile duct which measured up to 8 mm. Ductal wall thickening seen. - Choledocholithiasis. - Many stones were visualized endosonographically in the gallbladder. - There was no evidence of significant pathology in the visualized portion of the liver. - Pancreatic parenchymal abnormalities consisting of atrophy, hyperechoic strands and hyperechoic foci were noted in the entire pancreas. - A 2.5 cm mass was identified in the pancreatic body. Fine needle aspiration performed. - An intramural (subepithelial) lesion was found in the duodenal bulb. The lesion appeared to originate from within the submucosa (Layer 3). Recommendation: - Perform an ERCP today then EGD with EMR of the duodenal nodule. Lisa Juárez MD 06/03/2023 5:02:31 PM This report has been signed electronically. Note Initiated On: 06/03/2023 1:10 PM Number of Addenda: 0 I attest to the content of the Intraoperative Record and orders documented therein, exceptions below {[id number]}
--- NOTE | 2023-06-03 17:13 | GI REPORT ---
Patient Name: Gopi Irvin Procedure Date: 06/03/2023 1:10 PM Date of : 1935 Admit Type: Inpatient Age: 87 Gender: Male Attending MD: Lisa Juárez MD, Procedure: ERCP Providers: Lisa Juárez MD Referring MD: Mariana Chauhan Md Indications: Bile duct stone(s), For therapy of ascending cholangitis Medicines: General Anesthesia Complications: No immediate complications. Estimated Blood Loss: Estimated blood loss: none. Procedure: Pre-Anesthesia Assessment: - Prior to the procedure, a History and Physical was performed, and patient medications, allergies and sensitivities were reviewed. The patient's tolerance of previous anesthesia was reviewed. - The risks and benefits of the procedure and the sedation options and risks were discussed with the patient. All questions were answered and informed consent was obtained. - Patient identification and proposed procedure were verified prior to the procedure by the physician and the nurse. The procedure was verified in the procedure room. - Pre-procedure physical examination revealed no contraindications to sedation. After obtaining informed consent, the scope was passed under direct vision. Throughout the procedure, the patient's blood pressure, pulse, and oxygen saturations were monitored continuously. The Duodenoscope was introduced through the mouth, and advanced to the duodenum and used to inject contrast into the bile duct. The ERCP was accomplished without difficulty. The patient tolerated the procedure well. Findings: The esters and emulsifiers supervisor film was normal. The esophagus was successfully intubated under direct vision. The scope was advanced to a normal major papilla in the descending duodenum without detailed examination of the pharynx, larynx and associated structures, and upper GI tract. The upper GI tract was grossly normal. The major papilla was located entirely within a diverticulum. A 0.025 inch x 270 cm angled Visiglide wire was passed into the biliary tree. The short-nosed traction sphincterotome was passed over the guidewire and the bile duct was then deeply cannulated. Contrast was injected. I personally interpreted the bile duct images. Ductal flow of contrast was adequate. Image quality was adequate. Contrast extended to the main bile duct. Opacification of the entire biliary tree was successful. The maximum diameter of the ducts was 10 mm. Three large stones seen in the gallbladder. Biliary sphincterotomy was made with a monofilament traction (standard) sphincterotome using ERBE electrocautery. There was no post-sphincterotomy bleeding. The biliary tree was swept with a 12 mm balloon starting at the bifurcation. Pus was swept from the duct. One stone was removed. No stones remained. One 7 Fr by 7 cm plastic biliary stent with a single external pigtail and a single internal pigtail was placed into the common bile duct. Bile flowed through the stent. The stent was in good position. One 7 Fr by 10 cm transpapillary plastic biliary stent with a single external pigtail and a single internal pigtail was placed into the gallbladder. Bile flowed through the stent. The stent was in good position. Impression: - Choledocholithiasis was found. Complete removal was accomplished by biliary sphincterotomy and balloon extraction. - One plastic biliary stent was placed into the common bile duct. - One plastic biliary stent was placed into the gallbladder. Recommendation: - Repeat ERCP in 3 months to remove stent. - Continue ABx. 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 Lisa Juárez MD 06/03/2023 5:12:51 PM This report has been signed electronically. Note Initiated On: 06/03/2023 1:10 PM Number of Addenda: 0 I attest to the content of the Intraoperative Record and orders documented therein, exceptions below {[id number]}
--- NOTE | 2023-06-03 19:18 | CT Scan Report ---
CT abdomen w oral con only CLINICAL HISTORY: s/p Duodenal EMR, evaluate for contrast extravasati TECHNIQUE: Helical axial images of the abdomen were obtained. Automated dose lowering techniques and/ or adjustment according to patient size were utilized for this exam. This exam was performed with in travenous contrast. CT DOSE: 1128.04 mGy.cm Comparison: Comparison is made to CT abdomen pelvis the FINDINGS: Lower chest: Bibasilar atelectasis versus scarring is seen. Liver: Unremarkable. No focal lesions are seen. Gallbladder and biliary tree: Thickening of the gallbladder wall is seen measuring up to 3 mm. Interv al placement of biliary stent. Pancreas: Fatty replacement of the pancreas is seen. No definite mass of the pancreas is visualized t o correspond to findings on US. Spleen: Unremarkable. Adrenals: Unremarkable. Kidneys and ureters: Perinephric stranding is noted bilaterally. Bowel: Postsurgical changes are seen in the proximal duodenum. Lymph nodes Retroperitoneal: Unremarkable. Mesenteric: Unremarkable. Peritoneum: Pneumoperitoneum is seen, new from prior exam. Vessels: Unremarkable. Abdominal wall: Unremarkable. Bones: Degenerative changes in the visualized spine. IMPRESSION: 1. Pneumoperitoneum is seen, correlation with expected postsurgical findings status post duodenal EM R recommended. 2. Gallbladder wall thickening compatible with acute cholecystitis. 3. Additional findings as above. ACT 112: Negative or not required by law. Electronically signed by: Neo Epstein M.D. 06/03/2023 7:16 PM
[2023-06-03 19:49] LABS: Hematocrit (blood only) 28.7 % (42.0-52.0); Hemoglobin 9.3 g/dl (14.0-18.0)
--- NOTE | 2023-06-03 20:03 | Fluoroscopy Report ---
[place] ERCP biliary ductal CLINICAL HISTORY: ERCP TECHNIQUE: 23 views were obtained with the C-arm in the OR with the above procedure. Total fluoroscop y time was 15 minutes 36 seconds. Radiation dose was 429 mGy. Comparison: Comparison is made to MRCP 06/03/2023 FINDINGS/IMPRESSION: Intraoperative images were obtained of ERCP. Incidental note is made of filling defects compatible with stones in the gallbladder. Biliary stents are seen. Please correlate with intraoperative fluoroscopy and operative report. ACT 112: Negative or not required by law. Electronically signed by: Neo Epstein M.D. 06/03/2023 8:01 PM
--- NOTE | 2023-06-03 20:05 | Communication Note ---
Date of Service: June 03, 2023 CT scan reviewed , contrast extravasation indicating complete closure with no ongoing perforation. The pneumoperitoneum is expected post resection and will r esolve spontaneously. Recommend: Monitor clinically with serial abdominal exams. Pain control as needed. IV ABx. NPO for today. Call me anytime with any questions or concerns.
[2023-06-03] MEDS ORDERED: HYDROmorphone INJ 0.5 MG/0.5 ML SYR IV STA (20:12)
[2023-06-03] MEDS: GABAPENTIN 100 MG CAP PO SCH (20:22)
[2023-06-03] MEDS: BIMATOPROST 0.01% OP SOLN 2.5 ML BTL OP SCH (20:24)
[2023-06-03] MEDS: PANTOprazole 40 MG in SYRINGE 0 ML IV SCH (20:29)
[2023-06-03] MEDS: SIMETHICONE 40 MG/0.6 ML 30ML PO SCH (20:33)
[2023-06-04 00:43] LABS: A calco-baum cmplx NotReported Not Detected (NotDetected); Bact fragilis Not Reported Not Detected (NotDetected); C auris Not Reported Not Detected (NotDetected); CTX-M Resistant Gene Not Detected (NotDetected); Calbicans Not Reported Not Detected (NotDetected); Candida glabrata Not Reported Not Detected (NotDetected); Candida krusei Not Reported Not Detected (NotDetected); Cneoformans/gatti Not Reported Not Detected (NotDetected); Cparapsilosis Not Reported Not Detected (NotDetected); Ctropicalis Not Reported Not Detected (NotDetected); E cloacae compx Not Reported Not Detected (NotDetected); Efaecalis Not Reported Not Detected (NotDetected); Efaecium Not Reported Not Detected (NotDetected); Enterobacterales Not Reported DETECTED (NotDetected); Escherichia coli Not Reported DETECTED (NotDetected); H influenzae Not Reported Not Detected (NotDetected); IMP Resistant Gene Not Detected (NotDetected); K aerogenes Not Reported Not Detected (NotDetected); KPC Resistant Gene Not Detected (NotDetected); Koxytoca Not Reported Not Detected (NotDetected); Kpneumoniae grp Not Reported Not Detected (NotDetected); Lmonocyt Not Reported Not Detected (NotDetected); N meningitidis Not Reported Not Detected (NotDetected); NDM Resistant Gene Not Detected (NotDetected); OXA 48 Like Resistant Gene Not Detected (NotDetected); P aeruginosa Not Reported Not Detected (NotDetected); Proteus spp Not Reported Not Detected (NotDetected); Salmonella spp Not Reported Not Detected (NotDetected); Smarcescens Not Reported Not Detected (NotDetected); Staph lugdunensis Not Reported Not Detected (NotDetected); Staph spp. Not Reported Not Detected (NotDetected); Staphaureus Not Reported Not Detected (NotDetected); Staphepi Not Reported Not Detected (NotDetected); Stenmaltophilia Not Reported Not Detected (NotDetected); Strep agal(GrpB) Not Reported Not Detected (NotDetected); Strep pneum Not Reported Not Detected (NotDetected); Strep pyog (GrpA) Not Reported Not Detected (NotDetected); Strep spp Not Reported Not Detected (NotDetected); VIM Resistant Gene Not Detected (NotDetected); mcr-1 Colistin Resistant Gene Not Detected (NotDetected)
[2023-06-04 01:21] LABS: Enterobacterales DETECTED (NotDetected)
[2023-06-04] MEDS: INSULIN ASPART PER UNIT CHARGE SC SCH ×5 (01:29→20:52)
[2023-06-04] MEDS: PIPERACILLIN/TAZOBACTAM 4.5 GM in DEXTROSE 5% 100 ML IV SCH ×3 (03:30→20:53)
[2023-06-04] MEDS: HEPARIN SOD 5,000 UNIT/0.5 ML VIAL SQ SCH ×3 (06:11→20:34)
[2023-06-04] MEDS: LACTATED RINGER'S 1,000 ML IV SCH ×2 (06:14→11:05)
[2023-06-04 07:06] LABS: Albumin Globulin Ratio 1.2 (0.9-2); BUN Creatinine Ratio 17.4 (10-20); Bilirubin,Total 3.7 mg/dl (0.2-1.0); Calcium 8.3 mg/dl (8.6-10.3); Creatinine Clr Calc Pharmacy 35.5 ml/min; Est GFR (African American) 44.2 ml/min; Est GFR (Non-African American) 38.2 ml/min; Globulin 2.6 gm/dl (2.5-4.0); Phosphorus 2.6 mg/dl (2.5-4.9); Potassium 4.5 mmol/L (3.5-5.1); Total Protein 5.6 gm/dl (6.0-8.3)
[2023-06-04 07:07] LABS: iSTAT Creatinine 2.1 mg/dl (0.6-1.3); iSTAT Hemoglobin 10.9 g/dl (14.0-18.0); iSTAT Ionized Calcium 1.27 mmol/l (1.12-1.32); iSTAT Potassium 4.4 mmol/L (3.3-5.0)
[2023-06-04 08:11] LABS: Hematocrit (blood only) 26.5 % (42.0-52.0); Hemoglobin 8.6 g/dl (14.0-18.0); Mean Corpuscular Hemoglobin 26.7 pg (25.0-34.0); Mean Corpuscular Hgb Conc 32.5 g/dL (32.0-36.0); Mean Corpuscular Volume 82.3 fL (80.0-100.0); RDW Coefficient of Variation 17.4 % (11.5-14.5); RDW Standard Deviation 51.6 fL (36.4-46.3); Red Blood Count 3.22 M/uL (4.70-6.10); White Blood Count 20.03 K/ul (4.8-10.8)
[2023-06-04] MEDS: amLODIPine BESYLATE 5 MG TAB PO SCH (08:15)
[2023-06-04] MEDS: CEROVITE ADV FORMULA TAB PO SCH (08:15)
[2023-06-04] MEDS: PANTOprazole 40 MG in SYRINGE 0 ML IV SCH ×2 (08:15→20:33)
[2023-06-04] MEDS: ATORVASTATIN 40 MG TAB PO SCH (08:15)
[2023-06-04] MEDS: SIMETHICONE 40 MG/0.6 ML 30ML PO SCH ×2 (08:40→20:35)
--- NOTE | 2023-06-04 09:33 | Communication Note ---
Date of Service: June 04, 2023 Chart reviewed, vitals normal, WBC trending down, LFTs improved, bilirubin will take time, no pain over night. Recommend: Start clear liquid diet for today.
[2023-06-04] MEDS: LANTUS PER UNIT CHARGE SQ SCH (11:04)
--- NOTE | 2023-06-04 11:04 | Surgery Progress Note ---
Date of Service June 04, 2023 Assessment & Plan (1) Cholecystitis: (2) Acute pancreatitis: (3) Abnormal LFTs: Plan POD #1 s/p ERCP with removal of stones and stent placement for cholangitis. The gallbladder was decompressed via the stent as well during the ERCP. He is doing very well today. We will continue conservative management with IV antibiotics. Track CBC and LFTs Continue medical management Admission and Anticipated Discharge Date Admission Date: June 03, 2023 Subjective Doing well status post ERCP. He denies any abdominal pain. His white count has decreased to 20. He denies nausea or vomiting. He is tolerating liquids. Physical Exam Physical Exam: NAD, A&O x3 AFVSS Abdomen: Soft, nontender Results & Data Vital Signs (Past 12 Hours) Vital Signs Temp Pulse Pulse Resp BP Pulse Ox O2 Del Method 06/04/23 09:00 Room Air 06/04/23 07:00 84 06/04/23 07:09 37.0 C 88 16 154/59 H 92 Room Air 06/04/23 00:00 84 06/04/23 03:41 36.8 C 100 H 20 153/70 H 95 Room Air Laboratory Results 06/04/23 06/04/23 06/04/23 Range/Units 06:16 06:16 06:09 WBC 20.03 H (4.8-10.8) K/ul RBC 3.22 L (4.70-6.10) M/uL Hgb 8.6 L (14.0-18.0) g/dl POC Hgb (14.0-18.0) g/dl Hct 26.5 L (42.0-52.0) % POC Hct (42-52) % MCV 82.3 (80.0-100.0) fL MCH 26.7 (25.0-34.0) pg MCHC 32.5 (32.0-36.0) g/dL RDW Std Deviation 51.6 H (36.4-46.3) fL RDW Coeff of Scott 17.4 H (11.5-14.5) % Plt Count (130-400) K/uL MPV Not Reportable POC Sodium (135-144) mmol/L Sodium 138 (136-145) mmol/L POC Potassium (3.3-5.0) mmol/L Potassium 4.5 (3.5-5.1) mmol/L POC Chloride (101-112) mmol/L Chloride 110 H (98-107) mmol/L Carbon Dioxide 21 (21-32) mmol/L POC Total CO2 (24-31) mmol/L Anion Gap 7 (3-11) POC Anion Gap (16-25) mmol/L POC BUN (7-18) mg/dl BUN 28 H (6-23) mg/dl Creatinine 1.61 H (0.6-1.4) mg/dl POC Creatinine (0.6-1.3) mg/dl Est Cr Clr Drug Dosing 35.5 ml/min Est GFR ( Amer) 44.2 ml/min Est GFR (Non-Af Amer) 38.2 ml/min BUN/Creatinine Ratio 17.4 (10-20) Glucose 99 (70-99(Fasting)) mg/dl POC Glucose 101 H (70-99) mg/dl POC Glucose (other) (70-99) mg/dl Calcium 8.3 L (8.6-10.3) mg/dl POC Ioniz Calcium Amalia (1.12-1.32) mmol/l Phosphorus 2.6 (2.5-4.9) mg/dl Magnesium 2.0 (1.7-2.4) mg/dl Total Bilirubin 3.7 H (0.2-1.0) mg/dl AST 75 H (13-39) U/L ALT 106 H (7-52) U/L Alkaline Phosphatase 381 H (34-104) U/L Total Protein 5.6 L (6.0-8.3) gm/dl Albumin 3.0 L (3.4-5.0) gm/dl Globulin 2.6 (2.5-4.0) gm/dl Albumin/Globulin Ratio 1.2 (0.9-2) Triglycerides (0-150) mg/dl Cholesterol (0-200) mg/dl LDL Cholesterol, Calc mg/dl VLDL Cholesterol, Calc (0-30) mg/dl HDL Cholesterol mg/dl Cholesterol/HDL Ratio (0-5) Enterobacterales (PCR) (NotDetected) E. coli (PCR) (NotDetected) mcr-1 Colistin Res Gene PCR (NotDetected) blaIMP Car res Gene PCR (NotDetected) KPC-Carbap Res Gene PCR (NotDetected) blaNDM Car Res Gene PCR (NotDetected) OXA-48 Carbapenem Resis Gene (PCR) (NotDetected) blaVIM Car Res Gene PCR (NotDetected) CTX-M Gene Resistance (PCR) (NotDetected) Bld Cult ID Panel PCR (NotDetected) 06/03/23 06/03/23 06/03/23 Range/Units 23:51 19:24 16:31 WBC (4.8-10.8) K/ul RBC (4.70-6.10) M/uL Hgb 9.3 L (14.0-18.0) g/dl POC Hgb (14.0-18.0) g/dl Hct 28.7 L (42.0-52.0) % POC Hct (42-52) % MCV (80.0-100.0) fL MCH (25.0-34.0) pg MCHC (32.0-36.0) g/dL RDW Std Deviation (36.4-46.3) fL RDW Coeff of Scott (11.5-14.5) % Plt Count (130-400) K/uL MPV POC Sodium (135-144) mmol/L Sodium (136-145) mmol/L POC Potassium (3.3-5.0) mmol/L Potassium (3.5-5.1) mmol/L POC Chloride (101-112) mmol/L Chloride (98-107) mmol/L Carbon Dioxide (21-32) mmol/L POC Total CO2 (24-31) mmol/L Anion Gap (3-11) POC Anion Gap (16-25) mmol/L POC BUN (7-18) mg/dl BUN (6-23) mg/dl Creatinine (0.6-1.4) mg/dl POC Creatinine (0.6-1.3) mg/dl Est Cr Clr Drug Dosing ml/min Est GFR ( Amer) ml/min Est GFR (Non-Af Amer) ml/min BUN/Creatinine Ratio (10-20) Glucose (70-99(Fasting)) mg/dl POC Glucose 166 H 189 H (70-99) mg/dl POC Glucose (other) (70-99) mg/dl Calcium (8.6-10.3) mg/dl POC Ioniz Calcium Amalia (1.12-1.32) mmol/l Phosphorus (2.5-4.9) mg/dl Magnesium (1.7-2.4) mg/dl Total Bilirubin (0.2-1.0) mg/dl AST (13-39) U/L ALT (7-52) U/L Alkaline Phosphatase (34-104) U/L Total Protein (6.0-8.3) gm/dl Albumin (3.4-5.0) gm/dl Globulin (2.5-4.0) gm/dl Albumin/Globulin Ratio (0.9-2) Triglycerides (0-150) mg/dl Cholesterol (0-200) mg/dl LDL Cholesterol, Calc mg/dl VLDL Cholesterol, Calc (0-30) mg/dl HDL Cholesterol mg/dl Cholesterol/HDL Ratio (0-5) Enterobacterales (PCR) (NotDetected) E. coli (PCR) (NotDetected) mcr-1 Colistin Res Gene PCR (NotDetected) blaIMP Car res Gene PCR (NotDetected) KPC-Carbap Res Gene PCR (NotDetected) blaNDM Car Res Gene PCR (NotDetected) OXA-48 Carbapenem Resis Gene (PCR) (NotDetected) blaVIM Car Res Gene PCR (NotDetected) CTX-M Gene Resistance (PCR) (NotDetected) Bld Cult ID Panel PCR (NotDetected) 06/03/23 06/03/23 06/03/23 Range/Units 13:03 11:57 11:56 WBC (4.8-10.8) K/ul RBC (4.70-6.10) M/uL Hgb (14.0-18.0) g/dl POC Hgb (14.0-18.0) g/dl Hct (42.0-52.0) % POC Hct (42-52) % MCV (80.0-100.0) fL MCH (25.0-34.0) pg MCHC (32.0-36.0) g/dL RDW Std Deviation (36.4-46.3) fL RDW Coeff of Scott (11.5-14.5) % Plt Count (130-400) K/uL MPV POC Sodium (135-144) mmol/L Sodium (136-145) mmol/L POC Potassium (3.3-5.0) mmol/L Potassium (3.5-5.1) mmol/L POC Chloride (101-112) mmol/L Chloride (98-107) mmol/L Carbon Dioxide (21-32) mmol/L POC Total CO2 (24-31) mmol/L Anion Gap (3-11) POC Anion Gap (16-25) mmol/L POC BUN (7-18) mg/dl BUN (6-23) mg/dl Creatinine (0.6-1.4) mg/dl POC Creatinine (0.6-1.3) mg/dl Est Cr Clr Drug Dosing ml/min Est GFR ( Amer) ml/min Est GFR (Non-Af Amer) ml/min BUN/Creatinine Ratio (10-20) Glucose (70-99(Fasting)) mg/dl POC Glucose 108 H 149 H (70-99) mg/dl POC Glucose (other) (70-99) mg/dl Calcium (8.6-10.3) mg/dl POC Ioniz Calcium Amalia (1.12-1.32) mmol/l Phosphorus (2.5-4.9) mg/dl Magnesium (1.7-2.4) mg/dl Total Bilirubin (0.2-1.0) mg/dl AST (13-39) U/L ALT (7-52) U/L Alkaline Phosphatase (34-104) U/L Total Protein (6.0-8.3) gm/dl Albumin (3.4-5.0) gm/dl Globulin (2.5-4.0) gm/dl Albumin/Globulin Ratio (0.9-2) Triglycerides 60 (0-150) mg/dl Cholesterol 62 (0-200) mg/dl LDL Cholesterol, Calc 22 mg/dl VLDL Cholesterol, Calc 12 (0-30) mg/dl HDL Cholesterol 28 mg/dl Cholesterol/HDL Ratio 2.2 (0-5) Enterobacterales (PCR) (NotDetected) E. coli (PCR) (NotDetected) mcr-1 Colistin Res Gene PCR (NotDetected) blaIMP Car res Gene PCR (NotDetected) KPC-Carbap Res Gene PCR (NotDetected) blaNDM Car Res Gene PCR (NotDetected) OXA-48 Carbapenem Resis Gene (PCR) (NotDetected) blaVIM Car Res Gene PCR (NotDetected) CTX-M Gene Resistance (PCR) (NotDetected) Bld Cult ID Panel PCR (NotDetected) 06/02/23 06/02/23 Range/Units 23:18 20:46 WBC (4.8-10.8) K/ul RBC (4.70-6.10) M/uL Hgb (14.0-18.0) g/dl POC Hgb 10.9 L (14.0-18.0) g/dl Hct (42.0-52.0) % POC Hct 32 L (42-52) % MCV (80.0-100.0) fL MCH (25.0-34.0) pg MCHC (32.0-36.0) g/dL RDW Std Deviation (36.4-46.3) fL RDW Coeff of Scott (11.5-14.5) % Plt Count (130-400) K/uL MPV POC Sodium 140 (135-144) mmol/L Sodium (136-145) mmol/L POC Potassium 4.4 (3.3-5.0) mmol/L Potassium (3.5-5.1) mmol/L POC Chloride 111 (101-112) mmol/L Chloride (98-107) mmol/L Carbon Dioxide (21-32) mmol/L POC Total CO2 15 L (24-31) mmol/L Anion Gap (3-11) POC Anion Gap 19.0 (16-25) mmol/L POC BUN 36 H (7-18) mg/dl BUN (6-23) mg/dl Creatinine (0.6-1.4) mg/dl POC Creatinine 2.1 H (0.6-1.3) mg/dl Est Cr Clr Drug Dosing ml/min Est GFR ( Amer) ml/min Est GFR (Non-Af Amer) ml/min BUN/Creatinine Ratio (10-20) Glucose (70-99(Fasting)) mg/dl POC Glucose (70-99) mg/dl POC Glucose (other) 152 H (70-99) mg/dl Calcium (8.6-10.3) mg/dl POC Ioniz Calcium Amalia 1.27 (1.12-1.32) mmol/l Phosphorus (2.5-4.9) mg/dl Magnesium (1.7-2.4) mg/dl Total Bilirubin (0.2-1.0) mg/dl AST (13-39) U/L ALT (7-52) U/L Alkaline Phosphatase (34-104) U/L Total Protein (6.0-8.3) gm/dl Albumin (3.4-5.0) gm/dl Globulin (2.5-4.0) gm/dl Albumin/Globulin Ratio (0.9-2) Triglycerides (0-150) mg/dl Cholesterol (0-200) mg/dl LDL Cholesterol, Calc mg/dl VLDL Cholesterol, Calc (0-30) mg/dl HDL Cholesterol mg/dl Cholesterol/HDL Ratio (0-5) Enterobacterales (PCR) DETECTED A (NotDetected) E. coli (PCR) DETECTED A (NotDetected) mcr-1 Colistin Res Gene PCR Not Detected (NotDetected) blaIMP Car res Gene PCR Not Detected (NotDetected) KPC-Carbap Res Gene PCR Not Detected (NotDetected) blaNDM Car Res Gene PCR Not Detected (NotDetected) OXA-48 Carbapenem Resis Gene (PCR) Not Detected (NotDetected) blaVIM Car Res Gene PCR Not Detected (NotDetected) CTX-M Gene Resistance (PCR) Not Detected (NotDetected) Bld Cult ID Panel PCR See PCR Comment (NotDetected) (2) Acute pancreatitis Acute pancreatitis complication: unspecified Pancreatitis type: unspecified pancreatitis type Qualified Code(s): K85.90 - Acute pancreatitis without necrosis or infection, unspecified
[2023-06-04] MEDS: ADVANCED PROBIOTIC 1250 MG CAPSULE PO SCH (11:33)
--- NOTE | 2023-06-04 16:07 | Hospitalist Progress Note ---
Date of Service June 04, 2023 Assessment & Plan (1) Cholecystitis: Plan 87-year-old male with PMH of HTN, DM 2 insulin requiring, colon cancer status post surgery, prostate cancer status post radiation, CRI [baseline creatinine 1.6], chronic anemia [baseline hemoglobin 10-11], cholelithiasis, past tobacco abuse presented with abdominal pain. Of note, patient had right upper quadrant/epigastric abdominal pain the 2 weekends prior to arrival followed by relief and followed by this episode of abdominal pain starting last weekend [employer]. Patient had one-time episode of bilious emesis and febrile. Prior to arrival. Also associated with nausea. He is being managed for the following: Cholecystitis Cholelithiasis Pancreatitis Transaminitis:Likely secondary to above Sepsis POA GNB bacteremia At presentation: Patient with abdominal pain, febrile. Pulse elevated, lactate normal, WBC elevated at 29.6 K, lipase 1219, LFT elevated. Admitting imagings: CXR with no acute finding. CTAP with cholelithiasis. MRCP with cholelithiasis and acute cholecystitis/nondilated common bile duct/no choledocholithiasis. 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 Follow up biopsy. On clears today per GI, will need f/u for stent removal. Continue with Zosyn 06/03, PPI, IV fluids. Follow-up admitting blood culture/sensitivity. Add probiotic Trend LFT - trending down, GI evaluated, appreciate recommendation. Surgery consulted, appreciate recommendation. Clinically patient with improving abdominal pain at bedside exam today. Patient has been afebrile and reports feeling better. Acute kidney injury over CKD stage III:Admitting creatinine elevated, s/p IV fluids, improving. Labs in AM. Other chronic medical condition: Continue with/resume home meds as able. hypertension, stable DM2 insulin requiring, reasonable control as of recent hemoglobin A1c of 7.4 last January 2023 colon cancer status post surgery prostate cancer status post radiation chronic anemia, hemoglobin slightly lower than baseline past tobacco abuse DVT prophylaxis: Heparin subcu DNR/DNI Patient granddaughter Ms. Lakeshia Tarik, contact #[phone]. Admission and Anticipated Discharge Date Admission Date: June 03, 2023 Subjective Patient seen and examined at bedside as a follow-up of cholecystitis, cholelithiasis, pancreatitis, transaminitis, sepsis POA, gram-negative bacteremia. Patient was lying in bed, patient's granddaughter at bedside, patient on room air, NAD, reports improvement in his belly pain, no further belly pain, will be started on clear liquid diet today per GI recommendation, denies any headache or dizziness or chills or fever or other review of symptoms. He is having loose stools, does not have "smell of C. difficile" per RN. We will add probiotic. Patient's granddaughter was updated in detail at bedside, answered all her questions to her full satisfaction. Physical Exam Physical Exam: GENERAL: Alert and oriented x3. NAD, on RA. [place] HEENT: No pallor, no icterus. Pupils equal, round and reactive to light. Oral mucosa moist. NECK: No JVD, no neck masses. HEART: S1 and S2 heard. Regular rate and rhythm. No murmur, no gallop. RESPIRATORY SYSTEM: Normal AP diameter. No accessory muscle use. No wheezing, no crackles. ABDOMEN: Soft, bowel sounds present, nontender, no distention. CENTRAL NERVOUS SYSTEM: No facial droop. Speech is clear. Obeys simple commands. Moves extremities. EXTREMITIES: No edema, no erythema seen. Results & Data Results & Data Vital Signs (Past 12 Hours) Vital Signs Temp Pulse Pulse Resp BP BP Pulse Ox 06/04/23 15:54 37.4 C 83 18 143/67 H 93 06/04/23 15:12 84 06/04/23 11:46 36.6 C 90 19 145/68 H 95 06/04/23 09:00 06/04/23 07:00 84 06/04/23 07:09 37.0 C 88 16 154/59 H 92 O2 Del Method 06/04/23 15:54 Room Air 06/04/23 15:12 06/04/23 11:46 Room Air 06/04/23 09:00 Room Air 06/04/23 07:00 06/04/23 07:09 Room Air
[2023-06-04 17:41] LABS: Adenovirus F 40/41 PCR Not Detected (NotDetected); Astrovirus PCR Not Detected (NotDetected); Campylobacter PCR Not Detected (NotDetected); Cryptosporidium PCR Not Detected (NotDetected); Cyclospora cayetanensis PCR Not Detected (NotDetected); Entamoeba histolytica PCR Not Detected (NotDetected); Enteroaggregative E.coli(EAEC) Not Detected (NotDetected); Enteropathogenic E.coli (EPEC) Not Detected (NotDetected); Enterotoxigenic E.coli (ETEC) Not Detected (NotDetected); Giardia lamblia PCR Not Detected (NotDetected); Norovirus GI/GII PCR Not Detected (NotDetected); Plesiomonas shigelloides PCR Not Detected (NotDetected); Rotavirus A PCR Not Detected (NotDetected); Salmonella PCR Not Detected (NotDetected); Sapovirus PCR Not Detected (NotDetected); Shiga-like Toxin E.coli (STEC) Not Detected (NotDetected); Shigella/Enteroinvasive E.coli Not Detected (NotDetected); Vibrio cholerae PCR Not Detected (NotDetected); Vibrio species PCR Not Detected (NotDetected); Yersinia enterocolitica PCR Not Detected (NotDetected)
[2023-06-04] MEDS: GABAPENTIN 100 MG CAP PO SCH (20:33)
[2023-06-04] MEDS: BIMATOPROST 0.01% OP SOLN 2.5 ML BTL OP SCH (20:33)
[2023-06-05] MEDS: PIPERACILLIN/TAZOBACTAM 4.5 GM in DEXTROSE 5% 100 ML IV SCH (03:29)
[2023-06-05] MEDS: HEPARIN SOD 5,000 UNIT/0.5 ML VIAL SQ SCH ×3 (05:38→22:17)
[2023-06-05 06:52] LABS: Albumin Globulin Ratio 1.1 (0.9-2); Albumin Level 2.9 gm/dl (3.4-5.0); BUN Creatinine Ratio 12.1 (10-20); Bilirubin,Total 3.2 mg/dl (0.2-1.0); Calcium 8.3 mg/dl (8.6-10.3); Creatinine Clr Calc Pharmacy 40.5 ml/min; Est GFR (African American) 51.9 ml/min; Est GFR (Non-African American) 44.8 ml/min; Globulin 2.7 gm/dl (2.5-4.0); Potassium 4.1 mmol/L (3.5-5.1); Total Protein 5.6 gm/dl (6.0-8.3)
[2023-06-05 07:33] LABS: Hemoglobin 8.3 g/dl (14.0-18.0); Mean Corpuscular Hemoglobin 26.3 pg (25.0-34.0); Mean Corpuscular Hgb Conc 31.9 g/dL (32.0-36.0); Mean Corpuscular Volume 82.3 fL (80.0-100.0); Mean Platelet Volume 11.2 fL (9.4-12.4); Platelet Count 107 K/uL (130-400); RDW Coefficient of Variation 17.3 % (11.5-14.5); RDW Standard Deviation 51.7 fL (36.4-46.3); Red Blood Count 3.16 M/uL (4.70-6.10); White Blood Count 11.84 K/ul (4.8-10.8)
[2023-06-05 07:50] LABS: Platelet Estimate Decreased (Normal)
[2023-06-05] MEDS: LANTUS PER UNIT CHARGE SQ SCH (08:36)
[2023-06-05] MEDS: INSULIN ASPART PER UNIT CHARGE SC SCH ×4 (08:36→22:32)
[2023-06-05] MEDS: CEROVITE ADV FORMULA TAB PO SCH (08:36)
[2023-06-05] MEDS: PANTOprazole 40 MG in SYRINGE 0 ML IV SCH ×2 (08:37→22:17)
[2023-06-05] MEDS: ADVANCED PROBIOTIC 1250 MG CAPSULE PO SCH (08:37)
[2023-06-05] MEDS: ATORVASTATIN 40 MG TAB PO SCH (08:37)
[2023-06-05] MEDS: amLODIPine BESYLATE 5 MG TAB PO SCH (08:37)
[2023-06-05] MEDS: SIMETHICONE 40 MG/0.6 ML 30ML PO SCH ×2 (08:46→22:17)
--- NOTE | 2023-06-05 09:04 | Gastroenterology Progress Note ---
Date of Service June 05, 2023 Assessment & Plan (1) Acute pancreatitis: (2) Cholelithiasis: (3) Cholecystitis: Plan: 87 year old male admitted w/ abd pain, n/v symptoms x 1 week, noted to have cholelithiasis w cholecystitis on imaging studies. His LFT and lipase were also elevated wo MRCP evidence of biliary ductal dilation or choledocholithiasis , concerning for cholangitis and pancreatitis. S/P EGD/EUS/ERCP w/ EMR of submucosal duodenal nodules, NFA of panc lesion, CBD stone s/p biliary sphincterotomy and balloonextraction. - Discussed with Dr. Juárez - Can have full liquids today - If tolerating, can have soft diet x 3 days - Symptomatic management otherwise - Follow up pancreatic lesion pathology - Repeat ERCP in 3 months to remove stent. - Continue ABX - Repeat EGD pending path review Recall as needed. Thank you for allowing us to participate in the care of this patient. Please call with any acute changes, questions or concerns. Please see addendum below with additional recommendation from my supervising physician. Admission and Anticipated Discharge Date Admission Date: June 03, 2023 Supervising Physician Co-Signing Physician Notes I have seen and examined the patient with ANDREW Zamora whose note reflects our findings and plan. Subjective Pt was seen and evaluated, chart reviewed. Feeling well. No abd pain. No nausea, vomiting. No BM today. No report of black or bloody stools Discussed case w/ Dr. Juárez. EGD: - Normal esophagus. - Normal stomach. - Two submucosal nodules found in the duodenum. Complete removal was accomplished with Band EMR. One Padlock clip placed. EUS: There was no sign of significant pathology in the ampulla. - There was dilation in the common bile duct which measured up to 8 mm. Ductal wall thickening seen. - Choledocholithiasis. - Many stones were visualized endosonographically in the gallbladder. - There was no evidence of significant pathology in the visualized portion of the liver. - Pancreatic parenchymal abnormalities consisting of atrophy, hyperechoic strands and hyperechoic foci were noted in the entire pancreas. - A 2.5 cm mass was identified in the pancreatic body. Fine needle aspiration performed. - An intramural (subepithelial) lesion was found in the duodenal bulb. The lesion appeared to originate from within the submucosa (Layer 3). ERCP: - Choledocholithiasis was found. Complete removal was accomplished by biliary sphincterotomy and balloon extraction. - One plastic biliary stent was placed into the common bile duct. - One plastic biliary stent was placed into the gallbladder. Review of Systems Review of Systems: All systems reviewed & are unremarkable except as noted in HPI & below Physical Exam Constitutional: WD/WN, vitals as above Respiratory: normal respiratory effort, lungs clear to auscultation Cardiovascular: Rate/Rhythm: regular rate and regular rhythm Gastrointestinal (Abdomen): normal bowel sounds, soft, nontender, no hepatosplenomegaly Skin: no rashes, warm and dry Results & Data Vital Signs (Past 12 Hours) Vital Signs Temp Pulse Pulse Resp BP Pulse Ox O2 Del Method 06/05/23 07:17 37.4 C 75 13 160/73 H 93 Room Air 06/05/23 07:33 75 06/05/23 03:29 37.2 C 72 20 160/73 H 93 Room Air 06/04/23 22:00 77 06/04/23 23:39 37.5 C 79 18 158/71 H 94 Room Air (1) Acute pancreatitis Acute pancreatitis complication: unspecified Pancreatitis type: unspecified pancreatitis type Qualified Code(s): K85.90 - Acute pancreatitis without necrosis or infection, unspecified (2) Cholelithiasis Biliary obstruction: without biliary obstruction Cholecystitis presence: without cholecystitis Cholelithiasis location: gallbladder Qualified Code(s): K80.20 - Calculus of gallbladder without cholecystitis without obstruction
--- NOTE | 2023-06-05 11:38 | Surgery Progress Note ---
Date of Service June 05, 2023 Assessment & Plan (1) Cholecystitis: (2) Acute pancreatitis: (3) Acute cholangitis: (4) Bacteremia: Plan: 1/2 positive for E. coli on 06/02/2023 repeat on 06/04/2023 NTD Plan POD # 2 s/p EGD/EUS/ERCP w/ EMR of submucosal duodenal nodules, NFA of panc lesion, CBD stone s/p biliary sphincterotomy and balloon extraction. afebrile leukocytosis improved to 11.8K (20K ) t. bili and lfts improving no abdominal pain Plan: No plan for cholecystectomy at this time as gallbladder decompressed with stent during ERCP Continue IV antibiotics Full liquid diet for lunch encourage ambulation continue medical management Dr. Solis has seen and examined pt, agrees with above. Admission and Anticipated Discharge Date Admission Date: June 03, 2023 Supervising Physician Co-Signing Physician Notes I have seen and examined the patient personally and agree with the above assessment plan. In brief, he is doing quite well status post ERCP with stent placement. He denies any pain or tenderness. His labs are returning to normal. We will continue to follow. Advance diet as tolerated. No surgical intervention required at this time. Subjective feeling good still having diarrhea tolerated clear liquids without abdominal pain no n,v no fevers or chills Physical Exam Constitutional: WD/WN, vitals as above cooperative and comfortable; no acute distress and not ill appearing Respiratory: normal respiratory effort; no respiratory distress Gastrointestinal (Abdomen): Inspection/Auscultation: abdomen normal to inspection; abdomen not distended Percussion/Palpation: abdomen soft; abdomen nontender, no guarding and abdomen not rigid Skin: no rashes, warm and dry no jaundice Psychiatric: A+Ox3, euthymic affect Results & Data Vital Signs (Past 12 Hours) Vital Signs Temp Pulse Pulse Resp BP Pulse Ox O2 Del Method 06/05/23 07:17 37.4 C 75 13 160/73 H 93 Room Air 06/05/23 07:33 75 06/05/23 03:29 37.2 C 72 20 160/73 H 93 Room Air 06/04/23 23:39 37.5 C 79 18 158/71 H 94 Room Air Laboratory Results 06/05/23 06/05/23 06/05/23 Range/Units 07:45 05:41 05:41 WBC 11.84 H (4.8-10.8) K/ul RBC 3.16 L (4.70-6.10) M/uL Hgb 8.3 L (14.0-18.0) g/dl Hct 26.0 L (42.0-52.0) % MCV 82.3 (80.0-100.0) fL MCH 26.3 (25.0-34.0) pg MCHC 31.9 L (32.0-36.0) g/dL RDW Std Deviation 51.7 H (36.4-46.3) fL RDW Coeff of Scott 17.3 H (11.5-14.5) % Plt Count 107 L (130-400) K/uL MPV 11.2 (9.4-12.4) fL Platelet Estimate Decreased L (Normal) Sodium 137 (136-145) mmol/L Potassium 4.1 (3.5-5.1) mmol/L Chloride 107 (98-107) mmol/L Carbon Dioxide 23 (21-32) mmol/L Anion Gap 7 (3-11) BUN 17 (6-23) mg/dl Creatinine 1.41 H (0.6-1.4) mg/dl Est Cr Clr Drug Dosing 40.5 ml/min Est GFR ( Amer) 51.9 ml/min Est GFR (Non-Af Amer) 44.8 ml/min BUN/Creatinine Ratio 12.1 (10-20) Glucose 135 H (70-99(Fasting)) mg/dl POC Glucose 145 H (70-99) mg/dl Calcium 8.3 L (8.6-10.3) mg/dl Total Bilirubin 3.2 H (0.2-1.0) mg/dl AST 56 H (13-39) U/L ALT 82 H (7-52) U/L Alkaline Phosphatase 503 H (34-104) U/L Total Protein 5.6 L (6.0-8.3) gm/dl Albumin 2.9 L (3.4-5.0) gm/dl Globulin 2.7 (2.5-4.0) gm/dl Albumin/Globulin Ratio 1.1 (0.9-2) Stl C. cayetanensis PCR (NotDetected) Stool Rotavirus A PCR (NotDetected) Stl Adenov F 40/41 PCR (NotDetected) Stool Astrovirus (PCR) (NotDetected) Stool Campylobacter PCR (NotDetected) Stl C. diff Tox B Gene (Neg) Stool Cryptosporidium PCR (NotDetected) Stl E.coli Shiga Tox PCR (NotDetected) Stl Enterotoxigenic E PCR (NotDetected) Stool EPEC (PCR) (NotDetected) Stool EAEC (PCR) (NotDetected) Stl E. histolytica PCR (NotDetected) Stool Giardia Lamblia PCR (NotDetected) Stool Salmonella PCR (NotDetected) Stool Sapovirus (PCR) (NotDetected) Stl P. shigelloides PCR (NotDetected) Stl Shigella/EIEC PCR (NotDetected) St Y.enterocolitica PCR (NotDetected) Stool Vibrio (PCR) (NotDetected) Stl Vibrio cholerae PCR (NotDetected) Stl Norovirus GI/GII PCR (NotDetected) 06/04/23 06/04/23 06/04/23 Range/Units 20:42 16:27 15:54 WBC (4.8-10.8) K/ul RBC (4.70-6.10) M/uL Hgb (14.0-18.0) g/dl Hct (42.0-52.0) % MCV (80.0-100.0) fL MCH (25.0-34.0) pg MCHC (32.0-36.0) g/dL RDW Std Deviation (36.4-46.3) fL RDW Coeff of Scott (11.5-14.5) % Plt Count (130-400) K/uL MPV (9.4-12.4) fL Platelet Estimate (Normal) Sodium (136-145) mmol/L Potassium (3.5-5.1) mmol/L Chloride (98-107) mmol/L Carbon Dioxide (21-32) mmol/L Anion Gap (3-11) BUN (6-23) mg/dl Creatinine (0.6-1.4) mg/dl Est Cr Clr Drug Dosing ml/min Est GFR ( Amer) ml/min Est GFR (Non-Af Amer) ml/min BUN/Creatinine Ratio (10-20) Glucose (70-99(Fasting)) mg/dl POC Glucose 141 H 157 H (70-99) mg/dl Calcium (8.6-10.3) mg/dl Total Bilirubin (0.2-1.0) mg/dl AST (13-39) U/L ALT (7-52) U/L Alkaline Phosphatase (34-104) U/L Total Protein (6.0-8.3) gm/dl Albumin (3.4-5.0) gm/dl Globulin (2.5-4.0) gm/dl Albumin/Globulin Ratio (0.9-2) Stl C. cayetanensis PCR Not Detected (NotDetected) Stool Rotavirus A PCR Not Detected (NotDetected) Stl Adenov F 40/41 PCR Not Detected (NotDetected) Stool Astrovirus (PCR) Not Detected (NotDetected) Stool Campylobacter PCR Not Detected (NotDetected) Stl C. diff Tox B Gene (Neg) Stool Cryptosporidium PCR Not Detected (NotDetected) Stl E.coli Shiga Tox PCR Not Detected (NotDetected) Stl Enterotoxigenic E PCR Not Detected (NotDetected) Stool EPEC (PCR) Not Detected (NotDetected) Stool EAEC (PCR) Not Detected (NotDetected) Stl E. histolytica PCR Not Detected (NotDetected) Stool Giardia Lamblia PCR Not Detected (NotDetected) Stool Salmonella PCR Not Detected (NotDetected) Stool Sapovirus (PCR) Not Detected (NotDetected) Stl P. shigelloides PCR Not Detected (NotDetected) Stl Shigella/EIEC PCR Not Detected (NotDetected) St Y.enterocolitica PCR Not Detected (NotDetected) Stool Vibrio (PCR) Not Detected (NotDetected) Stl Vibrio cholerae PCR Not Detected (NotDetected) Stl Norovirus GI/GII PCR Not Detected (NotDetected) 06/04/23 06/04/23 Range/Units 15:54 11:41 WBC (4.8-10.8) K/ul RBC (4.70-6.10) M/uL Hgb (14.0-18.0) g/dl Hct (42.0-52.0) % MCV (80.0-100.0) fL MCH (25.0-34.0) pg MCHC (32.0-36.0) g/dL RDW Std Deviation (36.4-46.3) fL RDW Coeff of Scott (11.5-14.5) % Plt Count (130-400) K/uL MPV (9.4-12.4) fL Platelet Estimate (Normal) Sodium (136-145) mmol/L Potassium (3.5-5.1) mmol/L Chloride (98-107) mmol/L Carbon Dioxide (21-32) mmol/L Anion Gap (3-11) BUN (6-23) mg/dl Creatinine (0.6-1.4) mg/dl Est Cr Clr Drug Dosing ml/min Est GFR ( Amer) ml/min Est GFR (Non-Af Amer) ml/min BUN/Creatinine Ratio (10-20) Glucose (70-99(Fasting)) mg/dl POC Glucose 174 H (70-99) mg/dl Calcium (8.6-10.3) mg/dl Total Bilirubin (0.2-1.0) mg/dl AST (13-39) U/L ALT (7-52) U/L Alkaline Phosphatase (34-104) U/L Total Protein (6.0-8.3) gm/dl Albumin (3.4-5.0) gm/dl Globulin (2.5-4.0) gm/dl Albumin/Globulin Ratio (0.9-2) Stl C. cayetanensis PCR (NotDetected) Stool Rotavirus A PCR (NotDetected) Stl Adenov F 40/41 PCR (NotDetected) Stool Astrovirus (PCR) (NotDetected) Stool Campylobacter PCR (NotDetected) Stl C. diff Tox B Gene Negative Cdiff Gene (Neg) Stool Cryptosporidium PCR (NotDetected) Stl E.coli Shiga Tox PCR (NotDetected) Stl Enterotoxigenic E PCR (NotDetected) Stool EPEC (PCR) (NotDetected) Stool EAEC (PCR) (NotDetected) Stl E. histolytica PCR (NotDetected) Stool Giardia Lamblia PCR (NotDetected) Stool Salmonella PCR (NotDetected) Stool Sapovirus (PCR) (NotDetected) Stl P. shigelloides PCR (NotDetected) Stl Shigella/EIEC PCR (NotDetected) St Y.enterocolitica PCR (NotDetected) Stool Vibrio (PCR) (NotDetected) Stl Vibrio cholerae PCR (NotDetected) Stl Norovirus GI/GII PCR (NotDetected) (2) Acute pancreatitis Acute pancreatitis complication: unspecified Pancreatitis type: unspecified pancreatitis type Qualified Code(s): K85.90 - Acute pancreatitis without necrosis or infection, unspecified
[2023-06-05] MEDS: cefTRIAXone SODIUM 2,000 MG in DEXTROSE 5% 50 ML IV SCH (13:12)
--- NOTE | 2023-06-05 16:26 | Hospitalist Progress Note ---
Date of Service June 05, 2023 Assessment & Plan (1) Cholecystitis: Plan 87-year-old male with PMH of HTN, DM 2 insulin requiring, colon cancer status post surgery, prostate cancer status post radiation, CRI [baseline creatinine 1.6], chronic anemia [baseline hemoglobin 10-11], cholelithiasis, past tobacco abuse presented with abdominal pain. Of note, patient had right upper quadrant/epigastric abdominal pain the 2 weekends prior to arrival followed by relief and followed by this episode of abdominal pain starting last weekend [employer]. Patient had one-time episode of bilious emesis and febrile. Prior to arrival. Also associated with nausea. He is being managed for the following: Cholecystitis Cholelithiasis Pancreatitis Transaminitis:Likely secondary to above Sepsis POA GNB bacteremia At presentation: Patient with abdominal pain, febrile. Pulse elevated, lactate normal, WBC elevated at 29.6 K, lipase 1219, LFT elevated. Admitting imagings: CXR with no acute finding. CTAP with cholelithiasis. MRCP with cholelithiasis and acute cholecystitis/nondilated common bile duct/no choledocholithiasis. 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 Follow up biopsy. On clears today per GI, will need f/u for stent removal. Continue with Zosyn 06/03, PPI, IV fluids. Follow-up admitting blood culture/sensitivity. Add probiotic Trend LFT - trending down, GI evaluated, appreciate recommendation. Surgery consulted, appreciate recommendation.-Conservative management for now Clinically much better without any significant symptoms Diet has been advanced and antibiotic changed to ceftriaxone for now and will be changed to oral Augmentin on discharge to finish a total of 14 days of antibiotic Likely discharge tomorrow Acute kidney injury over CKD stage III:Admitting creatinine elevated, s/p IV fluids, improving. Labs in AM. Creatinine is slightly better at 1.41 Was advised to drink more fluid Other chronic medical condition: Continue with/resume home meds as able. Hypertension, stable DM2 insulin requiring, reasonable control as of recent hemoglobin A1c of 7.4 last January 2023 Colon cancer status post surgery Prostate cancer status post radiation Chronic anemia, hemoglobin slightly lower than baseline Past tobacco abuse DVT prophylaxis: Heparin subcu DNR/DNI Patient granddaughter Ms. Lakeshia Montanez, contact #[phone]. Admission and Anticipated Discharge Date Admission Date: June 03, 2023 Subjective 06/05/2023 The patient was seen and examined in medical telemetry unit He has been stable and denies any significant symptoms No more abdominal pain, nausea or vomiting Denies any fever and no chills Diet has been advanced Review of Systems Review of Systems: All systems reviewed and are unremarkable except as noted below Physical Exam Physical Exam: Lying in bed comfortably Constitutional: well developed, well nourished and average body habitus; not ill appearing Eyes: PERRL, conjunctivae normal, anicteric sclerae ENMT: external ear and nose normal, oropharynx normal Neck: trachea midline, no thyromegaly Respiratory: no respiratory distress Auscultation: lungs clear to auscultation bilaterally Cardiovascular: Rate/Rhythm: regular rate and regular rhythm; not tachycardic Heart Sounds: normal S1 and normal S2; no murmur Extremities: no edema Gastrointestinal (Abdomen): Inspection/Auscultation: normal bowel sounds; abdomen not distended Percussion/Palpation: abdomen soft; abdomen nontender Musculoskeletal: No acute arthritis involving any joint Neurologic: normal touch/pain/proprioception and moves all extremities; no focal motor deficits Psychiatric: A+Ox3, euthymic affect Lymphatic: no cervical or axillary lymphadenopathy Results & Data Results & Data Vital Signs (Past 12 Hours) Vital Signs Temp Pulse Pulse Pulse Resp BP Pulse Ox 06/05/23 15:48 61 06/05/23 15:00 37.2 C 68 15 150/72 H 93 06/05/23 11:15 37.2 C 68 15 155/72 H 95 06/05/23 07:17 37.4 C 75 13 160/73 H 93 06/05/23 07:33 75 O2 Del Method 06/05/23 15:48 06/05/23 15:00 Room Air 06/05/23 11:15 Room Air 06/05/23 07:17 Room Air 06/05/23 07:33 Laboratory Results Short CBC 06/05/23 Range/Units 05:41 WBC 11.84 H (4.8-10.8) K/ul Hgb 8.3 L (14.0-18.0) g/dl Hct 26.0 L (42.0-52.0) % Plt Count 107 L (130-400) K/uL BMP 06/05/23 05:41 Sodium 137 Potassium 4.1 Chloride 107 Carbon Dioxide 23 BUN 17 Creatinine 1.41 H Glucose 135 H Calcium 8.3 L Liver Function 06/05/23 Range/Units 05:41 Total Bilirubin 3.2 H (0.2-1.0) mg/dl AST 56 H (13-39) U/L ALT 82 H (7-52) U/L Alkaline Phosphatase 503 H (34-104) U/L Albumin 2.9 L (3.4-5.0) gm/dl Medications Administered Current Inpatient Medications Acetaminophen (Acetaminophen 325 Mg Tab) 325 mg PO Q6H PRN PRN Reason: Mild Pain/Fever Stop: 07/03/23 00:42 Amlodipine Besylate (Amlodipine Besylate 5 Mg Tab) 5 mg PO QAM DALILA Stop: 07/03/23 08:59 Last Admin: 06/05/23 08:37 Dose: 5 mg Atorvastatin Calcium (Atorvastatin 40 Mg Tab) 40 mg PO QAM DALILA Stop: 07/03/23 08:59 Last Admin: 06/05/23 08:37 Dose: 40 mg Bimatoprost (Bimatoprost 0.01% Op Soln 2.5 Ml Btl) 1 drops OP HS DALILA Stop: 07/03/23 20:59 Last Admin: 06/04/23 20:33 Dose: 1 drops Dextrose (Dextrose 50% 50 Ml Syringe) 25 - 50 ml IV UD PRN; Protocol PRN Reason: Hypoglycemia Protocol Stop: 07/03/23 02:40 Diclofenac Sodium (Diclofenac Sod 1% Gel 100 Gm Tube) 2 gm EXT BID PRN; Protocol PRN Reason: Knee Pain Stop: 07/03/23 02:40 Gabapentin (Gabapentin 100 Mg Cap) 100 mg PO HS DALILA Stop: 07/03/23 20:59 Last Admin: 06/04/23 20:33 Dose: 100 mg Glucagon (Glucagon For Inj 1 Mg Vial) 1 mg SQ UD PRN; Protocol PRN Reason: Hypoglycemia Protocol Stop: 07/03/23 02:40 Glucose (Glucose 10 Tab/Tube) 4 - 8 tab PO UD PRN; Protocol PRN Reason: Hypoglycemia Treatment Stop: 07/03/23 02:40 Glucose (Glucose 40% Gel 15 Gm Tube) 15 - 30 gm PO UD PRN; Protocol PRN Reason: Hypoglycemia Protocol Stop: 07/03/23 02:40 Heparin Sodium (Porcine) (Heparin Sod 5,000 Unit/0.5 Ml Vial) 5,000 units SQ Q8 DALILA Stop: 07/03/23 05:59 Last Admin: 06/05/23 13:12 Dose: 5,000 units Hydromorphone HCl (Hydromorphone Inj 0.5 Mg/0.5 Ml Syr) 0.5 mg IV Q3H PRN PRN Reason: Pain Stop: 06/17/23 00:42 Promethazine HCl 6.25 mg/ (Sodium Chloride) 50.25 mls @ 201 mls/hr IV Q6H PRN PRN Reason: Nausea And Vomiting Stop: 07/03/23 00:42 Last Infusion: 06/03/23 20:18 Dose: Infused Pantoprazole Sodium 40 mg/ (Syringe) 10 mls @ 5 mls/min IV BID DALILA Stop: 07/03/23 20:59 Last Admin: 06/05/23 08:37 Dose: 5 mls/min Ceftriaxone Sodium 2,000 mg/ (Dextrose) 70 mls @ 140 mls/hr IV Q24H DALILA Stop: 06/11/23 12:29 Last Infusion: 06/05/23 14:07 Dose: Infused Insulin Aspart (Insulin Aspart Per Unit Charge) 0 units SC ACHS DALILA Stop: 07/04/23 11:29 Last Admin: 06/05/23 12:42 Dose: 4 units Insulin Glargine (Lantus Per Unit Charge) 10 units SQ DAILY DALILA Stop: 07/03/23 08:59 Last Admin: 06/05/23 08:36 Dose: 10 units Lactobacillus Acidophilus (Advanced Probiotic 1250 Mg Capsule) 2 cap PO DAILY DALILA Stop: 07/04/23 11:14 Last Admin: 06/05/23 08:37 Dose: 2 cap Miscellaneous (Carbohydrates For Hypoglycemia ) 15 - 30 gm PO UD PRN PRN Reason: Hypoglycemia Protocol Stop: 07/03/23 02:40 Multivitamins/Minerals (Cerovite Adv Formula Tab) 1 tab PO DAILY DALILA Stop: 07/03/23 08:59 Last Admin: 06/05/23 08:36 Dose: 1 tab Simethicone (Simethicone 40 Mg/0.6 Ml 30ml) 80 mg PO BID DALILA Stop: 07/03/23 20:59 Last Admin: 06/05/23 08:46 Dose: Not Given Tramadol HCl (Tramadol Hcl 50 Mg Tablet) 25 - 50 mg PO Q4H PRN PRN Reason: Pain Stop: 07/03/23 00:42
[2023-06-05] MEDS: BIMATOPROST 0.01% OP SOLN 2.5 ML BTL OP SCH (22:16)
[2023-06-05] MEDS: GABAPENTIN 100 MG CAP PO SCH (22:17)
--- NOTE | 2023-06-05 22:34 | Electrocardiogram Report ---
Test Reason : Blood Pressure : / mmHG Vent. Rate : 112 BPM Atrial Rate : 112 BPM P-R Int : 240 ms QRS Dur : 098 ms QT Int : 340 ms P-R-T Axes : 000 019 046 degrees QTc Int : 464 ms Sinus tachycardia with 1st degree A-V block Incomplete right bundle branch block Cannot rule out Anterior infarct , age undetermined Abnormal ECG When compared with ECG of 25-APR-2021 15:32, AR interval has increased Minimal criteria for Anterior infarct are now Present Confirmed by Deonte Pizarro ([id number]) on 06/05/2023 10:34:29 PM Referred By: REFERRED SELF Confirmed By:Deonte Pizarro
[2023-06-06] MEDS: HEPARIN SOD 5,000 UNIT/0.5 ML VIAL SQ SCH (06:21)
[2023-06-06 08:01] LABS: Albumin Level 3.3 gm/dl (3.4-5.0); BUN Creatinine Ratio 10.1 (10-20); Bilirubin,Total 1.9 mg/dl (0.2-1.0); Est GFR (African American) 57.8 ml/min; Est GFR (Non-African American) 49.9 ml/min; Globulin 3.2 gm/dl (2.5-4.0); Potassium 4.1 mmol/L (3.5-5.1); Total Protein 6.5 gm/dl (6.0-8.3)
[2023-06-06] MEDS: INSULIN ASPART PER UNIT CHARGE SC SCH ×2 (08:31→12:17)
[2023-06-06] MEDS: LANTUS PER UNIT CHARGE SQ SCH (08:31)
[2023-06-06] MEDS: ATORVASTATIN 40 MG TAB PO SCH (08:32)
[2023-06-06] MEDS: amLODIPine BESYLATE 5 MG TAB PO SCH (08:32)
[2023-06-06] MEDS: ADVANCED PROBIOTIC 1250 MG CAPSULE PO SCH (08:32)
[2023-06-06] MEDS: PANTOprazole 40 MG in SYRINGE 0 ML IV SCH (08:32)
[2023-06-06] MEDS: CEROVITE ADV FORMULA TAB PO SCH (08:32)
[2023-06-06] MEDS: SIMETHICONE 40 MG/0.6 ML 30ML PO SCH (08:33)
[2023-06-06 08:38] LABS: Hematocrit (blood only) 30.2 % (42.0-52.0); Hemoglobin 9.7 g/dl (14.0-18.0); Mean Corpuscular Hemoglobin 26.6 pg (25.0-34.0); Mean Corpuscular Hgb Conc 32.1 g/dL (32.0-36.0); RDW Coefficient of Variation 17.2 % (11.5-14.5); RDW Standard Deviation 51.8 fL (36.4-46.3); Red Blood Count 3.64 M/uL (4.70-6.10); White Blood Count 10.89 K/ul (4.8-10.8)
[2023-06-06 08:39] LABS: Basophils # (auto) 0.03 K/uL (0-0.2); Basophils % (auto) 0.3 %; Eosinophils # (auto) 0.19 K/uL (0-0.50); Eosinophils % (auto) 1.7 %; Immature Granulocytes # (auto) 0.04 K/uL (0.01-0.20); Immature Granulocytes % (auto) 0.4 %; Lymphocytes # (auto) 1.58 K/uL (1.2-3.4); Lymphocytes % (auto) 14.5 %; Monocytes # (auto) 1.04 K/uL (0.11-0.59); Monocytes % (auto) 9.6 %; Neutrophils # (auto) 8.01 K/uL (1.40-6.50); Neutrophils % (auto) 73.5 %; Ovalocytes 1+; Polychromasia 1+
--- NOTE | 2023-06-06 12:06 | Surgery Progress Note ---
Date of Service June 06, 2023 Assessment & Plan (1) Cholecystitis: Plan: leukocytosis resolved (2) Acute pancreatitis: (3) Acute cholangitis: Plan: leukocytosis resolved lfts and t.bili improving (4) Bacteremia: Plan: 1/2 positive for E. coli on 06/02/2023 repeat on 06/04/2023 NTD Plan POD # 3 s/p EGD/EUS/ERCP w/ EMR of submucosal duodenal nodules, NFA of panc lesion, CBD stone s/p biliary sphincterotomy and balloon extraction. afebrile leukocytosis resolved t. bili and lfts improving no abdominal pain Plan: No plan for cholecystectomy at this time as gallbladder decompressed with stent during ERCP Continue antibiotics doing well from surgery standpoint for discharge encourage ambulation continue medical management our services signing off, please call with questions/concerns. Dr. Solis has seen pt, agrees with above. Admission and Anticipated Discharge Date Admission Date: June 03, 2023 Subjective feeling well, sitting up at bedside chair upon entering room had soft diet for breakfast without any abdominal pain, nausea no fevers or chills Physical Exam Constitutional: WD/WN, vitals as above no acute distress and not ill appearing Skin: no rashes, warm and dry no jaundice Psychiatric: A+Ox3, euthymic affect Results & Data Vital Signs (Past 12 Hours) Vital Signs Temp Pulse Pulse Resp BP Pulse Ox O2 Del Method 06/06/23 07:00 37.0 C 80 15 134/71 94 Room Air 06/06/23 03:41 37.3 C 76 18 134/72 93 Room Air Laboratory Results 06/06/23 06/06/23 06/06/23 Range/Units 11:41 07:48 06:57 WBC 10.89 H (4.8-10.8) K/ul RBC 3.64 L (4.70-6.10) M/uL Hgb 9.7 L (14.0-18.0) g/dl Hct 30.2 L (42.0-52.0) % MCV 83.0 (80.0-100.0) fL MCH 26.6 (25.0-34.0) pg MCHC 32.1 (32.0-36.0) g/dL RDW Std Deviation 51.8 H (36.4-46.3) fL RDW Coeff of Scott 17.2 H (11.5-14.5) % Plt Count (130-400) K/uL MPV (9.4-12.4) fL Immature Gran % (Auto) 0.4 % Neut % (Auto) 73.5 % Lymph % (Auto) 14.5 % [place] % (Auto) 9.6 % Eos % (Auto) 1.7 % Baso % (Auto) 0.3 % Neut # (Auto) 8.01 H (1.40-6.50) K/uL Lymph # (Auto) 1.58 (1.2-3.4) K/uL [place] # (Auto) 1.04 H (0.11-0.59) K/uL Eos # (Auto) 0.19 (0-0.50) K/uL Baso # (Auto) 0.03 (0-0.2) K/uL Immature Gran # (Auto) 0.04 (0.01-0.20) K/uL Polychromasia 1+ Ovalocytes 1+ Sodium (136-145) mmol/L Potassium (3.5-5.1) mmol/L Chloride (98-107) mmol/L Carbon Dioxide (21-32) mmol/L Anion Gap (3-11) BUN (6-23) mg/dl Creatinine (0.6-1.4) mg/dl Est Cr Clr Drug Dosing ml/min Est GFR ( Amer) ml/min Est GFR (Non-Af Amer) ml/min BUN/Creatinine Ratio (10-20) Glucose (70-99(Fasting)) mg/dl POC Glucose 196 H 141 H (70-99) mg/dl Calcium (8.6-10.3) mg/dl Total Bilirubin (0.2-1.0) mg/dl AST (13-39) U/L ALT (7-52) U/L Alkaline Phosphatase (34-104) U/L Total Protein (6.0-8.3) gm/dl Albumin (3.4-5.0) gm/dl Globulin (2.5-4.0) gm/dl Albumin/Globulin Ratio (0.9-2) 06/06/23 06/05/23 06/05/23 Range/Units 06:57 20:15 16:34 WBC (4.8-10.8) K/ul RBC (4.70-6.10) M/uL Hgb (14.0-18.0) g/dl Hct (42.0-52.0) % MCV (80.0-100.0) fL MCH (25.0-34.0) pg MCHC (32.0-36.0) g/dL RDW Std Deviation (36.4-46.3) fL RDW Coeff of Scott (11.5-14.5) % Plt Count (130-400) K/uL MPV (9.4-12.4) fL Immature Gran % (Auto) % Neut % (Auto) % Lymph % (Auto) % [place] % (Auto) % Eos % (Auto) % Baso % (Auto) % Neut # (Auto) (1.40-6.50) K/uL Lymph # (Auto) (1.2-3.4) K/uL [place] # (Auto) (0.11-0.59) K/uL Eos # (Auto) (0-0.50) K/uL Baso # (Auto) (0-0.2) K/uL Immature Gran # (Auto) (0.01-0.20) K/uL Polychromasia Ovalocytes Sodium 138 (136-145) mmol/L Potassium 4.1 (3.5-5.1) mmol/L Chloride 105 (98-107) mmol/L Carbon Dioxide 25 (21-32) mmol/L Anion Gap 8 (3-11) BUN 13 (6-23) mg/dl Creatinine 1.29 (0.6-1.4) mg/dl Est Cr Clr Drug Dosing 44.0 ml/min Est GFR ( Amer) 57.8 ml/min Est GFR (Non-Af Amer) 49.9 ml/min BUN/Creatinine Ratio 10.1 (10-20) Glucose 139 H (70-99(Fasting)) mg/dl POC Glucose 238 H 138 H (70-99) mg/dl Calcium 9.0 (8.6-10.3) mg/dl Total Bilirubin 1.9 H (0.2-1.0) mg/dl AST 42 H (13-39) U/L ALT 73 H (7-52) U/L Alkaline Phosphatase 586 H (34-104) U/L Total Protein 6.5 (6.0-8.3) gm/dl Albumin 3.3 L (3.4-5.0) gm/dl Globulin 3.2 (2.5-4.0) gm/dl Albumin/Globulin Ratio 1.0 (0.9-2) (2) Acute pancreatitis Acute pancreatitis complication: unspecified Pancreatitis type: unspecified pancreatitis type Qualified Code(s): K85.90 - Acute pancreatitis without necrosis or infection, unspecified
--- NOTE | 2023-06-06 12:10 | Hospitalist Progress Note ---
Date of Service June 06, 2023 Assessment & Plan (1) Cholecystitis: Plan 87-year-old male with PMH of HTN, DM 2 insulin requiring, colon cancer status post surgery, prostate cancer status post radiation, CRI [baseline creatinine 1.6], chronic anemia [baseline hemoglobin 10-11], cholelithiasis, past tobacco abuse presented with abdominal pain. 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 Patient had one-time episode of bilious emesis and febrile. Prior to arrival. Also associated with nausea. He is being managed for the following: Cholecystitis Cholelithiasis Pancreatitis Transaminitis:Likely secondary to above Sepsis POA GNB bacteremia At presentation: Patient with abdominal pain, febrile. Pulse elevated, lactate normal, WBC elevated at 29.6 K, lipase 1219, LFT elevated. Admitting imagings: CXR with no acute finding. CTAP with cholelithiasis. MRCP with cholelithiasis and acute cholecystitis/nondilated common bile duct/no choledocholithiasis. 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 Follow up biopsy. On clears today per GI, will need f/u for stent removal. Continue with Zosyn 06/03, PPI, IV fluids. Follow-up admitting blood culture/sensitivity. Add probiotic Trend LFT - trending down, GI evaluated, appreciate recommendation. Surgery consulted, appreciate recommendation.-Conservative management for now Clinically much better without any significant symptoms Diet has been advanced and antibiotic changed to ceftriaxone for now and will be changed to oral Augmentin on discharge to finish a total of 14 days of antibiotic Likely discharge tomorrow Has been tolerating diet without any symptoms No problem with ambulation Will be discharged home this afternoon Acute kidney injury over CKD stage III:Admitting creatinine elevated, s/p IV fluids, improving. Labs in AM. Creatinine is slightly better at 1.41 Was advised to drink more fluid Kidney function has been normalized Other chronic medical condition: Continue with/resume home meds as able. Hypertension, stable DM2 insulin requiring, reasonable control as of recent hemoglobin A1c of 7.4 last January 2023 Colon cancer status post surgery Prostate cancer status post radiation Chronic anemia, hemoglobin slightly lower than baseline Past tobacco abuse DVT prophylaxis: Heparin subcu DNR/DNI Patient granddaughter Ms. Lakeshia Montanez, contact #[phone]. Admission and Anticipated Discharge Date Admission Date: June 03, 2023 Subjective 06/05/2023 The patient was seen and examined in medical telemetry unit He has been stable and denies any significant symptoms No more abdominal pain, nausea or vomiting Denies any fever and no chills Diet has been advanced 06/06/2023 The patient was seen and examined in medical telemetry unit He has been tolerating regular diet without any abdominal pain, nausea or vomiting He has been ambulating without any symptoms Will be discharged this afternoon Review of Systems Review of Systems: All systems reviewed and are unremarkable except as noted below Physical Exam Physical Exam: Lying in bed comfortably Constitutional: well developed, well nourished and average body habitus; not ill appearing Eyes: PERRL, conjunctivae normal, anicteric sclerae ENMT: external ear and nose normal, oropharynx normal Neck: trachea midline, no thyromegaly Respiratory: no respiratory distress Auscultation: lungs clear to auscultation bilaterally Cardiovascular: Rate/Rhythm: regular rate and regular rhythm; not tachycardic Heart Sounds: normal S1 and normal S2; no murmur Extremities: no edema Gastrointestinal (Abdomen): Inspection/Auscultation: normal bowel sounds; abdomen not distended Percussion/Palpation: abdomen soft; abdomen nontender Musculoskeletal: No acute arthritis involving any of the joint Neurologic: normal touch/pain/proprioception and moves all extremities; no focal motor deficits Psychiatric: A+Ox3, euthymic affect Lymphatic: no cervical or axillary lymphadenopathy Results & Data Results & Data Vital Signs (Past 12 Hours) Vital Signs Temp Pulse Pulse Resp BP Pulse Ox O2 Del Method 06/06/23 07:00 37.0 C 80 15 134/71 94 Room Air 06/06/23 03:41 37.3 C 76 18 134/72 93 Room Air Laboratory Results Short CBC 06/06/23 Range/Units 06:57 WBC 10.89 H (4.8-10.8) K/ul Hgb 9.7 L (14.0-18.0) g/dl Hct 30.2 L (42.0-52.0) % Plt Count (130-400) K/uL BMP 06/06/23 06:57 Sodium 138 Potassium 4.1 Chloride 105 Carbon Dioxide 25 BUN 13 Creatinine 1.29 Glucose 139 H Calcium 9.0 Liver Function 06/06/23 Range/Units 06:57 Total Bilirubin 1.9 H (0.2-1.0) mg/dl AST 42 H (13-39) U/L ALT 73 H (7-52) U/L Alkaline Phosphatase 586 H (34-104) U/L Albumin 3.3 L (3.4-5.0) gm/dl Medications Administered Current Inpatient Medications Acetaminophen (Acetaminophen 325 Mg Tab) 325 mg PO Q6H PRN PRN Reason: Mild Pain/Fever Stop: 07/03/23 00:42 Amlodipine Besylate (Amlodipine Besylate 5 Mg Tab) 5 mg PO QAM DALILA Stop: 07/03/23 08:59 Last Admin: 06/06/23 08:32 Dose: 5 mg Atorvastatin Calcium (Atorvastatin 40 Mg Tab) 40 mg PO QAM DALILA Stop: 07/03/23 08:59 Last Admin: 06/06/23 08:32 Dose: 40 mg Bimatoprost (Bimatoprost 0.01% Op Soln 2.5 Ml Btl) 1 drops OP HS DALILA Stop: 07/03/23 20:59 Last Admin: 06/05/23 22:16 Dose: 1 drops Dextrose (Dextrose 50% 50 Ml Syringe) 25 - 50 ml IV UD PRN; Protocol PRN Reason: Hypoglycemia Protocol Stop: 07/03/23 02:40 Diclofenac Sodium (Diclofenac Sod 1% Gel 100 Gm Tube) 2 gm EXT BID PRN; Protocol PRN Reason: Knee Pain Stop: 07/03/23 02:40 Gabapentin (Gabapentin 100 Mg Cap) 100 mg PO HS DALILA Stop: 07/03/23 20:59 Last Admin: 06/05/23 22:17 Dose: 100 mg Glucagon (Glucagon For Inj 1 Mg Vial) 1 mg SQ UD PRN; Protocol PRN Reason: Hypoglycemia Protocol Stop: 07/03/23 02:40 Glucose (Glucose 10 Tab/Tube) 4 - 8 tab PO UD PRN; Protocol PRN Reason: Hypoglycemia Treatment Stop: 07/03/23 02:40 Glucose (Glucose 40% Gel 15 Gm Tube) 15 - 30 gm PO UD PRN; Protocol PRN Reason: Hypoglycemia Protocol Stop: 07/03/23 02:40 Heparin Sodium (Porcine) (Heparin Sod 5,000 Unit/0.5 Ml Vial) 5,000 units SQ Q8 DALILA Stop: 07/03/23 05:59 Last Admin: 06/06/23 06:21 Dose: 5,000 units Hydromorphone HCl (Hydromorphone Inj 0.5 Mg/0.5 Ml Syr) 0.5 mg IV Q3H PRN PRN Reason: Pain Stop: 06/17/23 00:42 Promethazine HCl 6.25 mg/ (Sodium Chloride) 50.25 mls @ 201 mls/hr IV Q6H PRN PRN Reason: Nausea And Vomiting Stop: 07/03/23 00:42 Last Infusion: 06/03/23 20:18 Dose: Infused Pantoprazole Sodium 40 mg/ (Syringe) 10 mls @ 5 mls/min IV BID DALILA Stop: 07/03/23 20:59 Last Admin: 06/06/23 08:32 Dose: 5 mls/min Ceftriaxone Sodium 2,000 mg/ (Dextrose) 70 mls @ 140 mls/hr IV Q24H DALILA Stop: 06/11/23 12:29 Last Infusion: 06/05/23 14:07 Dose: Infused Insulin Aspart (Insulin Aspart Per Unit Charge) 0 units SC ACHS DALILA Stop: 07/04/23 11:29 Last Admin: 06/06/23 08:31 Dose: 5 units Insulin Glargine (Lantus Per Unit Charge) 10 units SQ DAILY DALILA Stop: 07/03/23 08:59 Last Admin: 06/06/23 08:31 Dose: 10 units Lactobacillus Acidophilus (Advanced Probiotic 1250 Mg Capsule) 2 cap PO DAILY DALILA Stop: 07/04/23 11:14 Last Admin: 06/06/23 08:32 Dose: 2 cap Miscellaneous (Carbohydrates For Hypoglycemia ) 15 - 30 gm PO UD PRN PRN Reason: Hypoglycemia Protocol Stop: 07/03/23 02:40 Multivitamins/Minerals (Cerovite Adv Formula Tab) 1 tab PO DAILY DALILA Stop: 07/03/23 08:59 Last Admin: 07/06/23 08:32 Dose: 1 tab Simethicone (Simethicone 40 Mg/0.6 Ml 30ml) 80 mg PO BID DALILA Stop: 07/03/23 20:59 Last Admin: 06/06/23 08:33 Dose: Not Given Tramadol HCl (Tramadol Hcl 50 Mg Tablet) 25 - 50 mg PO Q4H PRN PRN Reason: Pain Stop: 07/03/23 00:42
[2023-06-06] MEDS: cefTRIAXone SODIUM 2,000 MG in DEXTROSE 5% 50 ML IV SCH (12:18)
[2023-06-06] MEDS ORDERED: AMOXICILLIN/CLAVULANATE 875 MG TAB PO ONE (12:20)
--- NOTE | 2023-06-06 16:59 | Discharge Summary ---
Date of Service June 06, 2023 Admission HPI Per Admitting Provider History obtained from patient, family, and records. Medical history significant for hypertension, DM2 insulin requiring, colon cancer status post surgery, prostate cancer status post radiation, CRI (baseline creatinine 1.6 ), chronic anemia (baseline hemoglobin 10-11), cholelithiasis, past tobacco abuse. Last confinement April 2021 for GI bleed. Last week, patient noted tolerable intermittent epigastric discomfort. Not related to food intake. Yesterday, patient noted worsening pain with nausea, bilious emesis. No headache, no black, no bloody stools. Some chills at home. Poor appetite. Short of breath from abdominal pain. IV Zosyn administered at the ER for sepsis. Medical History as above Surgical History : Back cyst removal, cataract surgery, prostate biopsy, partial colectomy, umbilical hernia repair Family History : DM, heart disease, kidney problems Personal/Social history : Past tobacco abuse, occasional EtOH intake, retired from [employer] work Admission Exam Per Admitting Provider Physical Exam: GENERAL: Comfortable, slightly anxious, slightly hard of hearing, no respiratory distress SKIN: Pallor, warm HEENT: Pale palpebral conjunctivae, no ptosis, dry buccal mucosa NECK : Supple, no tenderness CHEST : Decreased breath sounds, occasional expiratory wheezes, no tenderness HEART : Tachycardic, no obvious murmurs ABDOMEN: Some distention, epigastric tenderness EXTREMITIES : Minimal LE swelling, no LE tenderness, no other conspicuous deformities noted NEUROLOGIC : Coherent, no facial asymmetry, slightly hard of hearing, no other gross focality Principal Diagnosis Acute pancreatitis, cholelithiasis with cholecystitis, E. coli bacteremia, YVES Discharge Exam Lying in bed comfortably Constitutional well developed, well nourished and average body habitus; not ill appearing Eyes PERRL, conjunctivae normal, anicteric sclerae ENMT external ear and nose normal, oropharynx normal Neck trachea midline, no thyromegaly Respiratory no respiratory distress Auscultation: lungs clear to auscultation bilaterally Cardiovascular Rate/Rhythm: regular rate and regular rhythm; not tachycardic Heart Sounds: normal S1 and normal S2; no murmur Extremities: no edema Gastrointestinal (Abdomen) Inspection/Auscultation: normal bowel sounds; abdomen not distended Percussion/Palpation: abdomen soft; abdomen nontender Neurologic normal touch/pain/proprioception and moves all extremities; no focal motor deficits Psychiatric A+Ox3, euthymic affect Lymphatic no cervical or axillary lymphadenopathy Discharge Data Allergies Allergy/AdvReac Type Severity Reaction Status Date / Time No Known Allergies Allergy Verified 06/03/23 00:01 Consultations 06/02/23 22:48 ED Decision to Admit Stat 06/03/23 02:41 Consult Gastroenterology Routine 06/03/23 08:32 Consult General Surgery Routine Procedures Performed Operation Date: 06/03/23 08:30 Actual Procedures p Endoscopic Retrograde Cholangiopancreatography(Not Applicable) - Lisa Juárez MD s Endoscopic Ultrasonography Upper - Lisa Juárez MD Ordered Studies 06/02/23 20:49 CT abd pelvis wo con Stat 06/03/23 00:44 MR MRCP Stat 06/03/23 09:52 FL ERCP biliary ductal Routine 06/03/23 12:48 US upper EUS PACS images Routine 06/03/23 16:42 CT abdomen w oral con only Stat Hospital Course (1) Cholecystitis: Plan 87-year-old male with PMH of HTN, DM 2 insulin requiring, colon cancer status p ost surgery, prostate cancer status post radiation, CRI [baseline creatinine 1.6], chronic anemia [baseline hemoglobin 10-11], cholelithiasis, past tobacco abuse presented with abdominal pain. 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 Prior to arrival. Also associated with nausea. He is being managed for the following: Cholecystitis Cholelithiasis Pancreatitis Transaminitis:Likely secondary to above Sepsis POA GNB bacteremia At presentation: Patient with abdominal pain, febrile. Pulse elevated, lactate normal, WBC elevated at 29.6 K, lipase 1219, LFT elevated. Admitting imagings: CXR with no acute finding. CTAP with cholelithiasis. MRCP with cholelithiasis and acute cholecystitis/nondilated common bile duct/no choledocholithiasis. 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 Follow up biopsy. On clears today per GI, will need f/u for stent removal. Continue with Zosyn 06/03, PPI, IV fluids. Follow-up admitting blood culture/sensitivity. Add probiotic Trend LFT - trending down, GI evaluated, appreciate recommendation. Surgery consulted, appreciate recommendation.-Conservative management for now Clinically much better without any significant symptoms Diet has been advanced and antibiotic changed to ceftriaxone for now and will be changed to oral Augmentin on discharge to finish a total of 14 days of antibiotic Likely discharge tomorrow Has been tolerating diet without any symptoms No problem with ambulation Will be discharged home this afternoon Acute kidney injury over CKD stage III:Admitting creatinine elevated, s/p IV fluids, improving. Labs in AM. Creatinine is slightly better at 1.41 Was advised to drink more fluid Kidney function has been normalized Other chronic medical condition: Continue with/resume home meds as able. Hypertension, stable DM2 insulin requiring, reasonable control as of recent hemoglobin A1c of 7.4 last January 2023 Colon cancer status post surgery Prostate cancer status post radiation Chronic anemia, hemoglobin slightly lower than baseline Past tobacco abuse DVT prophylaxis: Heparin subcu DNR/DNI Patient granddaughter Ms. Lakeshia Montanez, contact #[phone]. Total Time Total Time Spent Total Time Spent (In Minutes): 35 minutes Discharge Plan Discharge Items Patient Disposition: Home - Self-Care Reason For Visit: PANCREATITIS, TACHY Discharge Diagnosis: Acute pancreatitis, cholelithiasis with cholecystitis, E. coli bacteremia, YVES Condition on Discharge: Good Activity: Resume your previous activity Non-emergency contact: Primary Care Provider Call non-emergency contact if: you have any medication questions and your symptoms worsen Follow-up/Referrals: Vimal Ley MD [Primary Care Provider] - (Date & Time 06/12/2023 4:00 PM Provider Vimal Ley III, MD Department [facility] ) Diet: Carb Consistent or DM2 Addtl Attending Provider Instructions: Please take precautions to avoid falls Finish the course of antibiotic Try to drink more fluid Please give appointments with your healthcare provider Pending Studies at Discharge: No Stand-Alone Forms: My [employer], Smoking Cessation Medications and DC Order Prescriptions: New Advanced Probiotic 625 mg (10 billion cell) Capsule 2 cap PO DAILY Qty: 30 0RF amoxicillin 875 mg tablet 875 mg PO BID Qty: 20 0RF Continued atorvastatin 40 mg Tablet 40 mg PO QAM cholecalciferol (vitamin D3) [Vitamin D3] 1,000 unit Capsule 1,000 unit PO QAM insulin glargine [Lantus Solostar U-100 Insulin] 100 unit/mL (3 mL) Insulin Pen 40 unit SUBCUT QAM metformin 500 mg tablet extended release 24 hr 500 mg PO QAM diclofenac sodium 1 % gel 2 g TOPICAL BID PRN (Reason: Knee Pain) amlodipine 5 mg Tablet 5 mg PO QAM Jardiance 10 mg Tablet 10 mg PO QAM lisinopril 20 mg tablet 20 mg PO BID pantoprazole 40 mg tablet,delayed release (DR/EC) 40 mg PO BID Multiple Vitamin-Minerals Tablet 1 tab PO DAILY acetaminophen [Tylenol Extra Strength] 500 mg Tablet 1,000 mg PO Q8 PRN (Reason: Pain) gabapentin 100 mg capsule 100 mg PO HS Lumigan 0.01 % drops 1 drp OPR HS multivitamin Tablet 1 tab PO DAILY aspirin 81 mg Tablet,Delayed Release (Dr/Ec) 81 mg PO DAILY Discharge Orders: Discharge Order (Routine); Ordered 06/06/23 Ordered By: Sarah Wilson Admission Data Admit Date/Time: 06/03/23 00:40 Attending Provider: Sarah Wilson Admit Provider: Jackson Farmer Primary Care Provider: Vimal Ley Other Providers: Jackson Farmer ; Jamaica Shell ; Dung Haque ; Chula Friend ; Erika Cardenas ; Jenifer Zimmerman ; Nadira Hernandez ; Marvin Oliva ; Medhat Carrion ; Roosevelt Stratton ; Hanna Morrow ; Alexis Sullivan ; Maya Mendes ; Kiana Nunn ; Homa Neri ; Nolvia Ferrari ; Lisa Juárez ; Steven Armstrong ; Hayden Yañez ; dAia Glasgow ; Ailin Castro Jr ; Jayy Solis ; Sai Quintana,Radha D ; Arnaud Sims ; Yadiel Garay ; Blanche Villegas ; Erika Brown ; David Vargas Jr ; Zion Bardales ; Carlos Gonzalez ; Nolvia Hurley ; Mariana Chauhan Other Interventions: Discharge Summary Assessment (RN) Last Done: 06/06/23 14:18
== END 2023-06-06 15:02 | disposition home or self-care (01) | DRG 853 ==
LOC: ED 20:10 → 2S 06-03 00:40 → SUATTDRO 06-03 00:40 → 2S 06-03 02:01 → 2N 06-04 19:07